=== PATIENT | female | born 1945 | race Caucasian/White ===

== ENCOUNTER 2016-10-16 11:00 | Inpatient (IN) | payer MEDICARE, MEDICAID ==
[~2016-10-16] VITALS: Ht 157.5 cm; Wt 89.0 kg
--- NOTE | 2016-10-16 11:05 | ED GI ---
General Stated Complaint: ABD PAIN Source of Information: EMS, Long-Term Records Exam Limitations: No Limitations History of Present Illness Time Seen By Provider: 11:04 Initial Comments 71-year-old female to ER from [facility] with distended abdomen noticed by the nurse today. No vomiting. No fevers. Complains of right-sided abdominal pain. She is demented. Reportedly, her last bowel movement was this morning. Timing/Duration: 1-2 Days Location: Generalized Abdomen Radiation: No Radiation Activities at Onset: None Allergies and Home Medications Allergies Uncoded Allergies: NSAIDS (Allergy, Unknown, 10/16/16) Review of Systems Constitutional: see HPI EENTM: No Symptoms Reported Respiratory: No Symptoms Reported Cardiovascular: No Symptoms Reported Gastrointestinal: See HPI Abdomen Distended Abdominal Pain Genitourinary: No Symptoms Reported Musculoskeletal: no symptoms reported Skin: no symptoms reported Psychiatric/Neurological: No Symptoms Reported Endocrine: No Symptoms Reported Hematologic/Lymphatic: No Symptoms Reported Physical Exam Vital Signs VS - Last 72 Hours, by Label 10/16/16 11:00 Temp 98.2 Pulse 67 Resp 18 B/P 117/49 Pulse Ox 97 O2 Delivery Room Air Capillary Refill : General Appearance: WD/WN no apparent distress HEENT: PERRL/EOMI normal ENT inspection Neck: non-tender full range of motion Respiratory: normal breath sounds no respiratory distress no accessory muscle use Cardiovascular: regular rate, rhythm no murmur Gastrointestinal: abnormal bowel sounds other (firm, distended bowel sounds are present but hypoactive) Extremities: normal range of motion non-tender Neurologic/Psychiatric: alert normal mood/affect oriented x 3 Skin: normal color warm/dry Progress/Results/Core Measures Results/Orders Lab Results Laboratory Tests Test 10/16/16 11:00 10/16/16 12:45 Range/Units Alanine Aminotransferase (ALT/SGPT) 41 0-55 U/L Albumin 3.1 L 3.2-4.5 G/DL Alkaline Phosphatase 131 40-136 U/L Anion Gap 9 5-14 MMOL/L Aspartate Amino Transf (AST/SGOT) 33 5-34 U/L BUN/Creatinine Ratio 17 Basophils # (Auto) 0.0 0.0-0.1 10^3/uL Basophils (%) (Auto) 0 0-10 % Blood Urea Nitrogen 23 H 7-18 MG/DL Calcium Level 9.0 8.5-10.1 MG/DL Carbon Dioxide Level 22 21-32 MMOL/L Chloride Level 101 98-107 MMOL/L Creatinine 1.34 H 0.60-1.30 MG/DL Eosinophils # (Auto) 0.2 0.0-0.3 10^3/uL Eosinophils (%) (Auto) 2 0-10 % Estimat Glomerular Filtration Rate 39 Glucose Level 240 H 70-105 MG/DL Hematocrit 36 35-52 % Hemoglobin 11.8 11.5-16.0 G/DL Lipase 19 8-78 U/L Lymphocytes # (Auto) 1.1 1.0-4.0 X 10^3 Lymphocytes (%) (Auto) 12 12-44 % Mean Corpuscular Hemoglobin 30 25-34 PG Mean Corpuscular Hemoglobin Concent 32 32-36 G/DL Mean Corpuscular Volume 94 80-99 FL Mean Platelet Volume 10.7 H 7.4-10.4 FL Monocytes # (Auto) 1.1 H 0.0-1.0 X 10^3 Monocytes (%) (Auto) 12 0-12 % Neutrophils # (Auto) 6.6 1.8-7.8 X 10^3 Neutrophils (%) (Auto) 73 42-75 % Platelet Count 205 130-400 10^3/uL Potassium Level 5.0 3.6-5.0 MMOL/L Red Blood Count 3.89 L 4.35-5.85 10^6/uL Red Cell Distribution Width 12.2 10.0-14.5 % Sodium Level 132 L 135-145 MMOL/L Total Bilirubin 0.6 0.1-1.0 MG/DL Total Protein 6.4 6.4-8.2 G/DL White Blood Count 9.0 4.3-11.0 10^3/uL Urine Bacteria FEW H /HPF Urine Bilirubin NEGATIVE NEGATIVE Urine Casts NONE /LPF Urine Clarity CLEAR Urine Color YELLOW Urine Crystals NONE /LPF Urine Culture Indicated NO Urine Glucose (UA) NEGATIVE NEGATIVE Urine Ketones NEGATIVE NEGATIVE Urine Leukocyte Esterase NEGATIVE NEGATIVE Urine Mucus NEGATIVE /LPF Urine Nitrite NEGATIVE NEGATIVE Urine Protein 2+ H NEGATIVE Urine RBC RARE /HPF Urine RBC (Auto) NEGATIVE NEGATIVE Urine Specific [place] 1.015 L 1.016-1.022 Urine Squamous Epithelial Cells 5-10 /HPF Urine Urobilinogen NORMAL NORMAL MG/DL Urine WBC RARE /HPF Urine pH 6.5 5-9 My Orders Orders-AZEVEDO,PETER J SUPERVISOR MENDING Cbc With Automated Diff (10/16/16 11:03) Comprehensive Metabolic Panel (10/16/16 11:03) Ua Culture If Indicated (10/16/16 11:03) Lipase (10/16/16 11:03) Saline Lock/Iv-Start (10/16/16 11:03) Chest 1 View, Ap/Pa Only (10/16/16 11:03) Ct Abdomen/Pelvis Wo (10/16/16 ) Us Gallbladder [id number] (10/16/16 11:47) Furosemide Injection (Lasix Injection) (10/16/16 12:00) Insulin (Regular) Human (Humulin R (Per (10/16/16 13:00) Medications Given in ED Current Medications Medications Dose Ordered Sig/Flip Route Start Time Stop Time Status Last Admin Dose Admin Furosemide 40 mg ONCE ONCE IVP 10/16/16 12:00 10/16/16 12:01 DC 10/16/16 11:56 40 MG Insulin Human Regular 6 unit ONCE ONCE SC 10/16/16 13:00 10/16/16 13:01 DC 10/16/16 13:06 6 UNIT Vital Signs/I&O Vital Sign - Last 12Hours 10/16/16 11:00 Temp 98.2 Pulse 67 Resp 18 B/P 117/49 Pulse Ox 97 O2 Delivery Room Air Diagnostic Imaging Diagonstic Imaging: Xray Plain Films/CT/US/NM/MRI: chest Comments NAME: CARRIE [facility] REC#: [id number] PT STATUS: REG ER : 1945 PHYSICIAN: NNEKA AZEVEDO APRN ADMIT DATE: 10/16/16/ER Draft Date of Exam:10/16/16 CHEST 1 VIEW, AP/PA ONLY INDICATION: Abdominal distention. COMPARISON: None available. FINDINGS: Cardiomegaly. Diffuse bilateral interstitial opacities with central vascular indistinctness. Evaluation of posterior lower lobes is limited by portable radiography. No large pleural effusion. No pneumothorax. IMPRESSION: Cardiomegaly with interstitial pulmonary edema. Dictated on workstation # [id number] Dict: 10/16/16 1139 Trans: 10/16/16 1148 [id number] Interpreted by: VIOLET ARCHER MD Electronically signed by: NAME: CARRIE [facility] REC#: [id number] PT STATUS: REG ER : 1945 PHYSICIAN: NNEKA AZEVEDO APRN ADMIT DATE: 10/16/16/ER Draft Date of Exam:10/16/16 CT ABDOMEN/PELVIS WO PROCEDURE: CT abdomen and pelvis without contrast. TECHNIQUE: Multiple contiguous axial images were obtained through the abdomen and pelvis without the use of intravenous contrast. INDICATION: Abdominal pain and distention. COMPARISON: There are no previous CT examinations available for comparison. FINDINGS: The student services vice president film reveals that there is gas in both the large and small bowel in a nonspecific fashion. The axial images show that there is a fair amount of fecal material throughout the colon. The appendix was not well visualized but there are no indirect signs of acute appendicitis. However, there is distortion of the mesenteric fat in the right midabdomen; particularly around the third portion of the duodenum, the gallbladder fossa, and to a lesser extent the right kidney. The gallbladder also seems to be distended and there may be some sludge within the gallbladder. The gallbladder wall is also indistinct and the possibility of acute cholecystitis should be considered. Ultrasound would be recommended for further study. The liver, spleen, pancreas, adrenals, kidneys, aorta, and inferior vena cava show no sign of an acute abnormality. The stomach is partially filled with fluid and consequently difficult to assess. There is no pelvic mass or free fluid collection noted. The uterus and urinary bladder are grossly unremarkable. The bone windows show no sign of a fracture or of a destructive lesion. There is degenerative disc and bony disease throughout the lumbar spine. The images through the lung bases do show that there is a generalized prominence of the interstitial densities in both lungs. The chest exam performed prior to the study did suggest that there was an element of pulmonary congestion present. There is also cardiomegaly and calcifications involving the aortic valve. IMPRESSION: 1. There is distortion of the mesenteric fat in the right midabdomen. This does suggest edema/inflammation. There could be an element of acute cholecystitis present. Ultrasound would be recommended for further study. 2. There is no acute abnormality of the abdomen or pelvis noted, otherwise. 3. There is a fair amount of fecal material throughout the colon. 4. There is cardiomegaly and mild pulmonary congestion. 5. These results were discussed with Nneka Azevedo APRN. Dictated on workstation # [id number] Dict: 10/16/16 1216 Trans: 10/16/16 1231 [id number] Interpreted by: BENJAMIN MELVIN MD Electronically signed by: Departure Communication Time/Spoke to Admitting Phy: 13:01 Communication I spoke with Dr. Dr. Zaldivar. We'll admit the patient Time/Spoke to Consulting Physi: 13:01 Communication/Consulting Spoke with Dr. Amaya. We'll admit the patient, clear liquid diet today, nothing by mouth after midnight, Zosyn. Tentative plan for cholecystectomy tomorrow Progress Notes Reportedly, patient was helped up to wheelchair prior to ultrasound but became too weak and was lowered to the ground by ultrasound staff. Small abrasion to the left anterior knee without swelling ecchymosis or deformity, otherwise no complaints Impression Impression: Primary Impression: Acute cholecystitis Disposition: 09 ADMITTED INPATIENT Condition: Stable Decision to Admit Reason: Admit from ER (General) Decision to Admit/Date: Oct 16, 2016 Time/Decision to Admit Time: 13:01 NNEKA AZEVEDO APRN Oct 16, 2016 11:05
--- OUTSIDE RECORDS SUMMARY | 2016-10-16 11:07 | XMS REPORT ---
Author Author [facility] Organization [facility] Address [address] [place], [place] [id number] Phone [phone] Care Team Providers Care Instant Powder Supervisor Name Role Phone TAVIA QUINTANILLA DO PP [phone] Summary purpose CCDA Sent to [facility] Chief Complaint and Reason for Visit No authorized Reason for Visit (Admitting Diagnosis) is available for this visit. Problem list No authorized problems tracked for continuity of care are available for this visit. Encounters No authorized problems tracked for encounter diagnoses are available for this visit. Medications No medications recorded for this patient visit Allergies, adverse reactions, alerts Allergen Category Ingredient Status Reaction Severity Onset *MRSA Drug *MRSA Active NSAIDS (Non-Steroidal Anti-Inflammatory Drug) Drug NSAIDS (Non-Steroidal Anti -Inflammatory Drug) Active Immunizations No immunizations recorded for this patient visit Relevant diagnostic tests and/or laboratory data No authorized results are available for this patient visit History of procedures Procedure Code Code Type Description Date Performed Performing Physician [id number] CPT-4 ELECTROCARDIOGRAM REPORT 10-14-2015 BRIANNA MILLS Functional status No functional or cognitive status observations are available for this visit. Vital signs No authorized vital signs are available for this visit. Social history No Social History or smoking status observations were recorded for this visit. ( Unknown if ever smoked.) Treatment Plan No treatment plan text is available for this visit. Hospital discharge instructions No discharge instruction text is available for this visit.
[2016-10-16 11:13] LABS: BASOPHILS % (AUTO) 0 % (0-10); EOSINOPHILS # (AUTO) 0.2 10^3/uL (0.0-0.3); EOSINOPHILS % (AUTO) 2 % (0-10); LYMPHOCYTES # (AUTO) 1.1 X 10^3 (1.0-4.0); LYMPHOCYTES % (AUTO) 12 % (12-44); MEAN CORPUSCULAR HEMOGLOBIN 30 PG (25-34); MEAN CORPUSCULAR HGB CONC 32 G/DL (32-36); MEAN CORPUSCULAR VOLUME 94 FL (80-99); MEAN PLATELET VOLUME 10.7 FL (7.4-10.4); MONOCYTES # (AUTO) 1.1 X 10^3 (0.0-1.0); MONOCYTES % (AUTO) 12 % (0-12); NEUTROPHILS # (AUTO) 6.6 X 10^3 (1.8-7.8); NEUTROPHILS % (AUTO) 73 % (42-75); PLATELET COUNT 205 10^3/uL (130-400); RED BLOOD COUNT 3.89 10^6/uL (4.35-5.85); RED CELL DISTRIBUTION WIDTH 12.2 % (10.0-14.5)
--- NOTE | 2016-10-16 11:48 | Diagnostic Imaging Report ---
INDICATION: Abdominal distention. COMPARISON: None available. FINDINGS: Cardiomegaly. Diffuse bilateral interstitial opacities with central vascular indistinctness. Evaluation of posterior lower lobes is limited by portable radiography. No large pleural effusion. No pneumothorax. IMPRESSION: Cardiomegaly with interstitial pulmonary edema. Dictated by: Dictated on workstation # [id number]
[2016-10-16] MEDS ORDERED: FUROSEMIDE 40 MG/4 ML INJ (LASIX) IVP ONE (12:00)
--- NOTE | 2016-10-16 12:31 | Diagnostic Imaging Report ---
PROCEDURE: CT abdomen and pelvis without contrast. TECHNIQUE: Multiple contiguous axial images were obtained through the abdomen and pelvis without the use of intravenous contrast. INDICATION: Abdominal pain and distention. COMPARISON: There are no previous CT examinations available for comparison. FINDINGS: The ob/gyn nurse film reveals that there is gas in both the large and small bowel in a nonspecific fashion. The axial images show that there is a fair amount of fecal material throughout the colon. The appendix was not well visualized but there are no indirect signs of acute appendicitis. However, there is distortion of the mesenteric fat in the right midabdomen; particularly around the third portion of the duodenum, the gallbladder fossa, and to a lesser extent the right kidney. The gallbladder also seems to be distended and there may be some sludge within the gallbladder. The gallbladder wall is also indistinct and the possibility of acute cholecystitis should be considered. Ultrasound would be recommended for further study. There also seems to be swirling of the mesentery in the right lower quadrant but there is no sign of the small bowel or colonic volvulus. The colon is somewhat difficult to evaluate however due to its tortuosity. If further evaluation is desired, then a Gastrografin enema would be recommended. The liver, spleen, pancreas, adrenals, kidneys, aorta, and inferior vena cava show no sign of an acute abnormality. The stomach is partially filled with fluid and consequently difficult to assess. There is no pelvic mass or free fluid collection noted. The uterus and urinary bladder are grossly unremarkable. The bone windows show no sign of a fracture or of a destructive lesion. There is degenerative disc and bony disease throughout the lumbar spine. The images through the lung bases do show that there is a generalized prominence of the interstitial densities in both lungs. The chest exam performed prior to the study did suggest that there was an element of pulmonary congestion present. There is also cardiomegaly and calcifications involving the aortic valve. IMPRESSION: 1. There is distortion of the mesenteric fat in the right midabdomen. This does suggest edema/inflammation. There could be an element of acute cholecystitis present. Ultrasound would be recommended for further study. 2. There is swirling of the mesentery in the right lower quadrant but there is no sign of a volvulus involving the large or small bowel. Additional considerations as above. 2. There is no acute abnormality of the abdomen or pelvis noted, otherwise. 3. There is a fair amount of fecal material throughout the colon. 4. There is cardiomegaly and mild pulmonary congestion. 5. These results were discussed with Ambrose Azevedo APRN. Dictated by: Dictated on workstation # [id number]
[2016-10-16 12:41] LABS: ALBUMIN 3.1 G/DL (3.2-4.5); BILIRUBIN,TOTAL 0.6 MG/DL (0.1-1.0); CREATININE SERUM 1.34 MG/DL (0.60-1.30); TOTAL PROTEIN 6.4 G/DL (6.4-8.2)
--- NOTE | 2016-10-16 12:50 | Diagnostic Imaging Report ---
PROCEDURE: US Gallbladder. TECHNIQUE: Multiple real-time grayscale images were obtained over the right upper quadrant in various projections. INDICATION: Abdominal pain. FINDINGS: The CT abdomen/pelvis exam performed earlier today raised a question of acute cholecystitis. On this study, there are indeed small stones and sludge within the gallbladder. Furthermore, the gallbladder wall is slightly thickened measuring 4 mm (normal 3 mm or less). There may also be a trace amount of pericholecystic fluid present. The common bile duct was not well visualized. The combination of these findings is certainly suspicious for acute cholecystitis. If further imaging is desired, then nuclear medicine hepatobiliary scan would be recommended. The liver is prominent but homogeneous. The biliary tree is not abnormally dilated. The right kidney is unremarkable. The pancreas was not well visualized. IMPRESSION: 1. There is cholelithiasis, slight thickening of the gallbladder wall, and a trace amount of pericholecystic fluid. The combination of these findings is certainly suspicious for acute cholecystitis. Recommendations as above. 2. There is no acute abnormality noted otherwise. 3. These results were discussed with Ambrose Azevedo APRN. Dictated by: Dictated on workstation # [id number]
[2016-10-16 12:52] LABS: BILIRUBIN,URINE NEGATIVE (NEGATIVE); KETONES,URINE NEGATIVE (NEGATIVE); LEUKOCYTE ESTERASE ,URINE NEGATIVE (NEGATIVE); NITRITE,URINE NEGATIVE (NEGATIVE); PH,URINE 6.5 (5-9); PROTEIN,URINE 2+ (NEGATIVE); UROBILINOGEN,URINE NORMAL (NORMAL)
[2016-10-16 13:00] LABS: WBC,URINE RARE /HPF
[2016-10-16] MEDS ORDERED: inSUlin (REGULAR) HUMAN 1 UNIT/0.01 ML (CHARGE PER UNIT) SC ONE (13:00)
--- NOTE | 2016-10-16 14:03 | Consultation ---
History of Present Illness History of Present Illness Patient Consulted On(mesfin/time) 10/16/16 13:58 Date of Admission History of Present Illness This is a 71-year-old female who came to the ER from [facility]. The nursing staff relayed to the ER staff that they noticed that the patient had a distended abdomen this morning. No nausea or vomiting. No fever. Patient is complaining of soreness to her right upper quadrant. She continues to point to her right side stating that her ribs are sore. She has history of significant dementia. The long term staff also relayed to the ER staff that the patient had a bowel movement this morning. Allergies and Home Medications Allergies Uncoded Allergies: NSAIDS (Allergy, Unknown, 10/16/16) Home Medications Acetaminophen 500 Mg Tablet 500 MG PO Q4H PRN PRN MILD PAIN (Reported) Amoxicillin/Potassium Clav 1 Each Tablet #14 1 EACH PO BID Prescribed by: NIVIA BHAGAT on 10/19/16 1046 Atorvastatin Calcium 40 Mg Tablet 40 MG PO HS (Reported) Carbamide Peroxide 15 Ml Drops 10Days 5 DROPS EACH EAR BID (Reported) 10 DAY SUPPLY START DATE 10-16-16 Docusate Sodium 100 Mg Capsule 100 MG PO BID (Reported) Duloxetine HCl 30 Mg Capsule.dr 30 MG PO DAILY (Reported) Hydrocodone/Acetaminophen 1 Each Tablet #20 1 EACH PO q4-q6hr PRN PRN PAIN Prescribed by: NIVIA BHAGAT on 10/19/16 1046 Insulin Aspart 300 Units/3 Ml Solution 20 UNITS SQ 0730 (Reported) Insulin Aspart 300 Units/3 Ml Solution 25 UNITS SQ 1200,1700 (Reported) Insulin Degludec 100 Unit/1 Ml Insuln.pen 82 UNIT SQ HS (Reported) Lactulose 20 Gm/30 Ml Solution 15 ML PO QID (Reported) Loperamide HCl 2 Mg Tablet 2 MG PO UD PRN PRN LOOSE STOOLS (Reported) MAY GIVE 2 TABS AFTER 1ST LOOSE STOOL, THEN 1 TAB AFTER EACH LOOSE STOOL - NOT TO EXCEED 6 TABS IN 24 HOURS Lorazepam 0.5 Mg Tablet 0.5 MG PO BID (Reported) Magnesium Hydroxide 400 Mg/5 Ml Oral.susp 30 ML PO DAILY PRN PRN CONSTIPATION ( Reported) Metoprolol Succinate 25 Mg Tab.er.24h #30 25 MG PO DAILY Prescribed by: MIKI SPRAGUE on 10/22/16 1304 Mirtazapine 30 Mg Tablet 30 MG PO HS (Reported) Nystatin 1 Each Powder.ea. TOP BID (Reported) APPLY TO GROIN Pantoprazole Sodium 40 Mg Tablet.dr 40 MG PO DAILY (Reported) Perphenazine 4 Mg Tablet 10 MG PO 0800 (Reported) Perphenazine 8 Mg Tablet 24 MG PO HS (Reported) Polyethylene Glycol 3350 17 Gm Powd.pack 17 GM PO BID (Reported) Risperidone 2 Mg Tablet 2 MG PO BID (Reported) Sitagliptin Phosphate 50 Mg Tablet 50 MG PO DAILY (Reported) Trihexyphenidyl HCl 2 Mg Tablet 2 MG PO TID (Reported) Past Wivqjpi-Iaqntm-Gpcfku Hx Patient Social History Alcohol Use: Denies Use Recreational Drug Use: No Smoking Status: Unknown if Ever Smoked Recent Foreign Travel: No Contact w/Someone Who Travel: No Recent Infectious Disease Expo: No Recent Hopitalizations: No Physical Abuse Screen: No Sexual Abuse: No Seasonal Allergies Seasonal Allergies: No Surgeries HX Surgeries: No (UNABLE TO OBTAIN HX FROM PT) Cardiovascular Hx Cardiac Disorders: No Neurological Hx Neurological Disorders: Yes Neurological Disorders: Dementia Genitourinary Hx Genitourinary Disorders: No Gastrointestinal Hx Gastrointestinal Disorders: Yes Gastrointestinal Disorders: Gastroesophageal Reflux, Chronic Constipation Musculoskeletal Hx Musculoskeletal Disorders: No Endocrine Hx Endocrine Disorders: Yes Endocrine Disorders: Diabetes, Non-Insulin dep HEENT HX ENT Disorders: No Cancer Hx Cancer: No Psychosocial Hx Psychiatric Problems: Yes Behavioral Health Disorders: Anxiety, Depression Family Medical History Significant Family History: No Pertinent Family Hx Review of Systems-General Constitutional: weakness EENTM: no symptoms reported Respiratory: no symptoms reported Cardiovascular: no symptoms reported Gastrointestinal: abdominal pain (RUQ) other (abdomen is significantly distended) Genitourinary: no symptoms reported : No Musculoskeletal: other (patient is complaining of pain to her left shoulder) Skin: no symptoms reported Psychiatric/Neurological: Other (history of dementia) Physical Exam-General Problems Physical Exam Vital Signs Vital Sign - Last 12Hours 10/16/16 11:00 Temp 98.2 Pulse 67 Resp 18 B/P 117/49 Pulse Ox 97 O2 Delivery Room Air Capillary Refill : Less Than 3 Seconds General Appearance: no apparent distress HEENT: normal ENT inspection Neck: non-tender full range of motion Respiratory: chest non-tender no respiratory distress no accessory muscle use Cardiovascular: regular rate, rhythm Gastrointestinal: distended (abdomen is significantly distended. Abdomen is also firm. Patient complaining of soreness in the right upper quadrant. Reports her ribs hurts.) Extremities: no calf tenderness Neurologic/Psychiatric: other (history of dementia) Skin: normal color warm/dry Data Review Labs Laboratory Tests 10/16/16 11:00: Alanine Aminotransferase (ALT/SGPT) 41, Albumin 3.1L, Alkaline Phosphatase 131, Anion Gap 9, Aspartate Amino Transf (AST/SGOT) 33, BUN/Creatinine Ratio 17, Basophils # (Auto) 0.0, Basophils (%) (Auto) 0, Blood Urea Nitrogen 23H, Calcium Level 9.0, Carbon Dioxide Level 22, Chloride Level 101, Creatinine 1.34H , Eosinophils # (Auto) 0.2, Eosinophils (%) (Auto) 2, Estimat Glomerular Filtration Rate 39, Glucose Level 240H, Hematocrit 36, Hemoglobin 11.8, Lipase 19, Lymphocytes # (Auto) 1.1, Lymphocytes (%) (Auto) 12, Mean Corpuscular Hemoglobin 30, Mean Corpuscular Hemoglobin Concent 32, Mean Corpuscular Volume 94, Mean Platelet Volume 10.7H, Monocytes # (Auto) 1.1H, Monocytes (%) (Auto) 12 , Neutrophils # (Auto) 6.6, Neutrophils (%) (Auto) 73, Platelet Count 205, Potassium Level 5.0, Red Blood Count 3.89L, Red Cell Distribution Width 12.2, Sodium Level 132L, Total Bilirubin 0.6, Total Protein 6.4, White Blood Count 9.0 10/16/16 12:45: Urine Bacteria FEWH, Urine Bilirubin NEGATIVE, Urine Casts NONE, Urine Clarity CLEAR, Urine Color YELLOW, Urine Crystals NONE, Urine Culture Indicated NO, Urine Glucose (UA) NEGATIVE, Urine Ketones NEGATIVE, Urine Leukocyte Esterase NEGATIVE, Urine Mucus NEGATIVE, Urine Nitrite NEGATIVE, Urine Protein 2+H, Urine RBC RARE, Urine RBC (Auto) NEGATIVE, Urine Specific [place] 1.015L, Urine Squamous Epithelial Cells 5-10, Urine Urobilinogen NORMAL, Urine WBC RARE, Urine pH 6.5 Radiology RICHI: CARRIE ALEXANDER REC#: [id number] PT STATUS: REG ER : 1945 PHYSICIAN: NNEKA AZEVEDO APRN ADMIT DATE: 10/16/16/ER Draft Date of Exam:10/16/16 CHEST 1 VIEW, AP/PA ONLY INDICATION: Abdominal distention. COMPARISON: None available. FINDINGS: Cardiomegaly. Diffuse bilateral interstitial opacities with central vascular indistinctness. Evaluation of posterior lower lobes is limited by portable radiography. No large pleural effusion. No pneumothorax. IMPRESSION: Cardiomegaly with interstitial pulmonary edema. RICHI: CARRIE ALEXANDER [facility] REC#: [id number] PT STATUS: REG ER : 1945 PHYSICIAN: NNEKA AZEVEDO STRAPPER ADMIT DATE: 10/16/16/ER Draft Date of Exam:10/16/16 CT ABDOMEN/PELVIS WO PROCEDURE: CT abdomen and pelvis without contrast. TECHNIQUE: Multiple contiguous axial images were obtained through the abdomen and pelvis without the use of intravenous contrast. INDICATION: Abdominal pain and distention. COMPARISON: There are no previous CT examinations available for comparison. FINDINGS: The architecture consultant film reveals that there is gas in both the large and small bowel in a nonspecific fashion. The axial images show that there is a fair amount of fecal material throughout the colon. The appendix was not well visualized but there are no indirect signs of acute appendicitis. However, there is distortion of the mesenteric fat in the right midabdomen; particularly around the third portion of the duodenum, the gallbladder fossa, and to a lesser extent the right kidney. The gallbladder also seems to be distended and there may be some sludge within the gallbladder. The gallbladder wall is also indistinct and the possibility of acute cholecystitis should be considered. Ultrasound would be recommended for further study. The liver, spleen, pancreas, adrenals, kidneys, aorta, and inferior vena cava show no sign of an acute abnormality. The stomach is partially filled with fluid and consequently difficult to assess. There is no pelvic mass or free fluid collection noted. The uterus and urinary bladder are grossly unremarkable. The bone windows show no sign of a fracture or of a destructive lesion. There is degenerative disc and bony disease throughout the lumbar spine. The images through the lung bases do show that there is a generalized prominence of the interstitial densities in both lungs. The chest exam performed prior to the study did suggest that there was an element of pulmonary congestion present. There is also cardiomegaly and calcifications involving the aortic valve. IMPRESSION: 1. There is distortion of the mesenteric fat in the right midabdomen. This does suggest edema/inflammation. There could be an element of acute cholecystitis present. Ultrasound would be recommended for further study. 2. There is no acute abnormality of the abdomen or pelvis noted, otherwise. 3. There is a fair amount of fecal material throughout the colon. 4. There is cardiomegaly and mild pulmonary congestion. 5. These results were discussed with Nneka Azevedo APRN. Procedures NAME: CARRIE ALEXANDER [facility] REC#: [id number] PT STATUS: REG ER : 1945 PHYSICIAN: NNEKA AZEVEDO APRN ADMIT DATE: 10/16/16/ER Draft Date of Exam:10/16/16 US GALLBLADDER [id number] PROCEDURE: US Gallbladder. TECHNIQUE: Multiple real-time grayscale images were obtained over the right upper quadrant in various projections. INDICATION: Abdominal pain. FINDINGS: The CT abdomen/pelvis exam performed earlier today raised a question of acute cholecystitis. On this study, there are indeed small stones and sludge within the gallbladder. Furthermore, the gallbladder wall is slightly thickened measuring 4 mm (normal 3 mm or less). There may also be a trace amount of pericholecystic fluid present. The common bile duct was not well visualized. The combination of these findings is certainly suspicious for acute cholecystitis. If further imaging is desired, then nuclear medicine hepatobiliary scan would be recommended. The liver is prominent but homogeneous. The biliary tree is not abnormally dilated. The right kidney is unremarkable. The pancreas was not well visualized. IMPRESSION: 1. There is cholelithiasis, slight thickening of the gallbladder wall, and a trace amount of pericholecystic fluid. The combination of these findings is certainly suspicious for . Recommendations as above. 2. There is no acute abnormality of the abdomen or pelvis noted, otherwise. 3. These results were discussed with Nneka Azevedo APRN. Assessment/Plan Assessment/Plan Assessment/Plan acute cholecystitis Cholelithiasis Distention of the abdomen History of chronic constipation. WBC is normal at this time. BUN and creatinine are elevated.At this time we'll put patient on clear liquids till midnight. After midnight patient to be nothing by mouth for possible laparoscopic cholelithiasis with all other indicated procedures. Lee- Patient 71 year old demented female who began having right upper quadrant abdominal pain and distention today. Patient reported to have some distention due to constipation on regular basis. Patient does demonstrate pain located in the right upper quadrant. She had a ct scan with changes suggestive of acute cholecystitis and some questionable changes of the sigmoid colon in the right lower quadrant. She had u/s done demonstrating findings suggestive of acute cholecystitis. There was a slight question of colonic process with narrowing of sigmoid colon and slight swirl, therefore a BE was performed demonstrating no obstruction or volvulus. General laying in bed no acute distress head ncat heart regular lungs nonlabored. abdomen distended with tenderness right upper quadrant ext nontender rectal no palpable mass alert assessment as above plan clear liquids today and npo after midnight laparoscopic cholecystectomy ioc possible open all other indicated procedures tomorrow will obtain consent, no family at bedside NIVIA SOLORZANO APRN Oct 16, 2016 14:03 AURORA LEE DO Oct 16, 2016 18:56
[2016-10-16 14:05] VITALS: BP 151/86
[2016-10-16] MEDS ORDERED: PIPERACILLIN SODIUM/TAZOBACTAM 4.5 GM in NS (BAXTER MINI) 100 ML IV NR (14:30)
[2016-10-16] MEDS: NS IV 1000 ML 1,000 ML IV SCH (15:01)
[2016-10-16] MEDS ORDERED: DIATRIZOATE MEGLUM/SODIUM 37% 120 ML (GASTROGRAFIN) RC ONE (15:30)
[2016-10-16] MEDS ORDERED: INSU100I14 SQ ×2 (15:44)
[2016-10-16 16:00] VITALS: BP 130/72
[2016-10-16] MEDS: inSUlin (REGULAR) HUMAN 1 UNIT/0.01 ML (CHARGE PER UNIT) SC SCH ×2 (16:00→20:54)
[2016-10-16] MEDS ORDERED: DULO30CA3 PO (16:02)
[2016-10-16] MEDS ORDERED: PERP4TAB10 PO (16:02)
[2016-10-16] MEDS ORDERED: LACT20SO2 PO (16:02)
[2016-10-16] MEDS ORDERED: LORA-404 PO (16:02)
[2016-10-16] MEDS ORDERED: PANT40TA2 PO (16:02)
[2016-10-16] MEDS ORDERED: ATOR40TA PO (16:02)
[2016-10-16] MEDS ORDERED: CARB15DR87 EACH EAR (16:02)
[2016-10-16] MEDS ORDERED: INSU100I32 SQ (16:02)
[2016-10-16] MEDS ORDERED: SITA50TA PO (16:02)
[2016-10-16] MEDS ORDERED: PERP8TAB6 PO (16:02)
[2016-10-16] MEDS ORDERED: MIRT30TA PO (16:02)
[2016-10-16] MEDS ORDERED: DOCU-143 PO (16:02)
[2016-10-16] MEDS ORDERED: ACET-2267 PO (16:02)
[2016-10-16] MEDS ORDERED: MAGN400O7 PO (16:02)
[2016-10-16] MEDS ORDERED: RISP2TAB83 PO (16:02)
[2016-10-16] MEDS ORDERED: POLY17PO6 PO (16:02)
[2016-10-16] MEDS ORDERED: NYST1POW22 TOP (16:02)
[2016-10-16] MEDS ORDERED: TRIH2TAB2 PO (16:02)
[2016-10-16] MEDS ORDERED: LOPE2TAB34 PO (16:02)
--- NOTE | 2016-10-16 18:34 | Diagnostic Imaging Report ---
Gastrografin enema. INDICATION: Abdominal pain. CT abdomen/pelvis exam performed earlier today noted some swirling of the mesentery in the right lower quadrant but failed to show any sign of obstruction or volvulus. Gastrografin was introduced in the colon per rectum. There was delay in the passage of Gastrografin through the colon as there is a considerable amount of residual fecal material throughout the colon. Gradually, the contrast was advanced into the region of the cecum. There was little, if any, reflux into the terminal ileum, however. There is no obstructive mass or constricting lesion identified. There is no sign of a volvulus either. IMPRESSION: 1. There is no evidence for a mass or for constricting lesion and there is no sign of volvulus. 2. There is a considerable amount of fecal material throughout the colon. These results were discussed with Dr. Ashkan mAaya. Dictated by: Dictated on workstation # [id number]
--- NOTE | 2016-10-16 18:55 | History & Physicial ---
History of Present Illness History of Present Illness Reason for visit/HPI patient is a resident of [facility]. Patient abdomen is distended today. Patient complaining of pain in the right upper quadrant by the ribs. X-ray shows acute cholecystitis . Patient has dementia. Patient doesn't know the senior loan officer or the year Date of Admission Oct 16, 2016 at 13:08 I consulted on this patient on 10/16/16 18:52 Attending Physician Rodrick Woods DO Admitting Physician Rodrick Woods DO Consult Allergies and Home Medications Allergies Uncoded Allergies: NSAIDS (Allergy, Unknown, 10/16/16) Home Medications Acetaminophen 500 Mg Tablet 500 MG PO Q4H PRN PRN MILD PAIN (Reported) Atorvastatin Calcium 40 Mg Tablet 40 MG PO HS (Reported) Carbamide Peroxide 15 Ml Drops 10Days 5 DROPS EACH EAR BID (Reported) 10 DAY SUPPLY START DATE 10-16-16 Docusate Sodium 100 Mg Capsule 100 MG PO BID (Reported) Duloxetine HCl 30 Mg Capsule.dr 30 MG PO DAILY (Reported) Insulin Aspart 300 Units/3 Ml Solution 20 UNITS SQ 0730 (Reported) Insulin Aspart 300 Units/3 Ml Solution 25 UNITS SQ 1200,1700 (Reported) Insulin Degludec 100 Unit/1 Ml Insuln.pen 82 UNIT SQ HS (Reported) Lactulose 20 Gm/30 Ml Solution 15 ML PO QID (Reported) Loperamide HCl 2 Mg Tablet 2 MG PO UD PRN PRN LOOSE STOOLS (Reported) MAY GIVE 2 TABS AFTER 1ST LOOSE STOOL, THEN 1 TAB AFTER EACH LOOSE STOOL - NOT TO EXCEED 6 TABS IN 24 HOURS Lorazepam 0.5 Mg Tablet 0.5 MG PO BID (Reported) Magnesium Hydroxide 400 Mg/5 Ml Oral.susp 30 ML PO DAILY PRN PRN CONSTIPATION ( Reported) Mirtazapine 30 Mg Tablet 30 MG PO HS (Reported) Nystatin 1 Each Powder.ea. TOP BID (Reported) APPLY TO GROIN Pantoprazole Sodium 40 Mg Tablet.dr 40 MG PO DAILY (Reported) Perphenazine 4 Mg Tablet 10 MG PO 0800 (Reported) Perphenazine 8 Mg Tablet 24 MG PO HS (Reported) Polyethylene Glycol 3350 17 Gm Powd.pack 17 GM PO BID (Reported) Risperidone 2 Mg Tablet 2 MG PO BID (Reported) Sitagliptin Phosphate 50 Mg Tablet 50 MG PO DAILY (Reported) Trihexyphenidyl HCl 2 Mg Tablet 2 MG PO TID (Reported) Past Ituzewl-Sdzhqr-Iegujn Hx Patient Social History Employed/Student: unemployed Alcohol Use: Denies Use Recreational Drug Use: No Smoking Status: Unknown if Ever Smoked Physical Abuse Screen: No Sexual Abuse: No Recent Foreign Travel: No Contact w/other who traveled: No Recent Hopitalizations: No Recent Infectious Disease Expo: No Seasonal Allergies Seasonal Allergies: No Surgeries HX Surgeries: No (UNABLE TO OBTAIN HX FROM PT) Cardiovascular Hx Cardiovascular Disorders: No Neurological Hx Neurological Disorders: Yes Neurological Disorders: Dementia Genitourinary Hx Genitourinary Disorders: No Gastrointestinal Hx Gastrointestinal Disorders: Yes Gastrointestinal Disorders: Gastroesophageal Reflux, Chronic Constipation Musculoskeletal Hx Musculoskeletal Disorders: No Endocrine Hx Endocrine Disorders: Yes Endocrine Disorders: Diabetes, Non-Insulin dep HEENT HX ENT Disorders: No Cancer Hx Cancer: No Psychosocial Hx Psychiatric Problems: Yes Behavioral Health Disorders: Anxiety, Depression Family Medical History Significant Family History: No Pertinent Family Hx Constitutional: malaise weakness EENTM: no symptoms reported Respiratory: no symptoms reported Cardiovascular: no symptoms reported Gastrointestinal: RUQ Genitourinary: no symptoms reported Physical Exam Vital Signs Vital Sign - Last 12Hours 10/16/16 11:00 Temp 98.2 Pulse 67 Resp 18 B/P 117/49 Pulse Ox 97 O2 Delivery Room Air Capillary Refill : Less Than 3 Seconds General Appearance: No Apparent Distress WD/WN Eyes: Bilateral Eye Normal Inspection HEENT: Normal ENT Inspection Neck: Full Range of Motion Normal Inspection Respiratory: Chest Non Tender No Accessory Muscle Use No Respiratory Distress Cardiovascular: Regular Rate, Rhythm No Murmur Gastrointestinal: Tenderness Other (tenderness right upper quadrant) Assessment/Plan Assessment and Plan acute cholecystitis. Diabetes. Hyperlipidemia. Dementia. Congestive heart failure RODRICK WOODS DO Oct 16, 2016 18:55
[2016-10-16] MEDS ORDERED: PIPERACILLIN/TAZO 4.5 GM VIAL (ZOSYN) IV ONE (20:10)
[2016-10-16] MEDS ORDERED: NORMAL SALINE (BAXTER MINI) 100 ML IV ONE (20:10)
[2016-10-16 20:29] VITALS: BP 124/73
[2016-10-16] MEDS: PIPERACILLIN SODIUM/TAZOBACTAM 4.5 GM in NORMAL SALINE (BAXTER MINI) 100 ML IV SCH (20:53)
[2016-10-17] VITALS: BP 119/71
[2016-10-17] MEDS: NS IV 1000 ML 1,000 ML IV SCH ×3 (00:30→20:30)
[2016-10-17] MEDS ORDERED: PIPERACILLIN/TAZO 4.5 GM VIAL (ZOSYN) IV ONE ×2 (03:44→20:15)
[2016-10-17] MEDS ORDERED: NORMAL SALINE (BAXTER MINI) 100 ML IV ONE ×2 (03:44→20:15)
[2016-10-17 04:00] VITALS: BP 108/52
[2016-10-17] MEDS: PIPERACILLIN SODIUM/TAZOBACTAM 4.5 GM in NORMAL SALINE (BAXTER MINI) 100 ML IV SCH ×3 (04:55→13:00)
[2016-10-17] MEDS: inSUlin (REGULAR) HUMAN 1 UNIT/0.01 ML (CHARGE PER UNIT) SC SCH ×4 (06:00→21:00)
[2016-10-17 06:32] LABS: BASOPHILS % (AUTO) 0 % (0-10); EOSINOPHILS # (AUTO) 0.1 10^3/uL (0.0-0.3); EOSINOPHILS % (AUTO) 2 % (0-10); LYMPHOCYTES # (AUTO) 0.9 X 10^3 (1.0-4.0); LYMPHOCYTES % (AUTO) 11 % (12-44); MEAN CORPUSCULAR HEMOGLOBIN 31 PG (25-34); MEAN CORPUSCULAR HGB CONC 33 G/DL (32-36); MEAN CORPUSCULAR VOLUME 94 FL (80-99); MEAN PLATELET VOLUME 10.4 FL (7.4-10.4); MONOCYTES % (AUTO) 12 % (0-12); NEUTROPHILS # (AUTO) 6.6 X 10^3 (1.8-7.8); NEUTROPHILS % (AUTO) 76 % (42-75); PLATELET COUNT 223 10^3/uL (130-400); RED BLOOD COUNT 3.52 10^6/uL (4.35-5.85); RED CELL DISTRIBUTION WIDTH 12.3 % (10.0-14.5); WHITE BLOOD COUNT 8.7 10^3/uL (4.3-11.0)
[2016-10-17 07:08] LABS: ALBUMIN 2.9 G/DL (3.2-4.5); BILIRUBIN,TOTAL 0.5 MG/DL (0.1-1.0); CALCIUM 8.5 MG/DL (8.5-10.1); CREATININE SERUM 1.36 MG/DL (0.60-1.30); POTASSIUM 3.9 MMOL/L (3.6-5.0); TOTAL PROTEIN 5.8 G/DL (6.4-8.2)
--- NOTE | 2016-10-17 07:51 | Progress Note (SOAP) ---
Subjective Subjective/Events-last exam patient having discomfort in the right lower ribs. Patient abdomen is enlarged but soft. Patient has renal insufficiency with a GFR 38. Acute cholecystitis. Dementia Objective Exam Vital Signs Date Time Temp Pulse Resp B/P Pulse Ox O2 Delivery O2 Flow Rate FiO2 10/17/16 04:00 98.6 69 20 108/52 93 Room Air 10/17/16 00:00 99.6 86 20 119/71 95 Room Air 10/16/16 20:35 92 Room Air 10/16/16 20:29 98.9 75 20 124/73 92 Room Air 10/16/16 19:18 Room Air 10/16/16 16:00 98.8 80 16 130/72 95 Room Air 10/16/16 14:05 97.7 81 18 151/86 96 Room Air 10/16/16 13:54 98.2 65 16 97 Room Air 10/16/16 11:00 98.2 67 18 117/49 97 Room Air I & O 10/17/16 07:00 Intake Total 1970 ml Output Total 750 ml Balance 1220 ml Capillary Refill : Less Than 3 Seconds General Appearance: No Apparent Distress WD/WN HEENT: Normal ENT Inspection Neck: Normal Inspection Respiratory: Chest Non Tender Lungs Clear Normal Breath Sounds No Accessory Muscle Use No Respiratory Distress Cardiovascular: Regular Rate, Rhythm Gastrointestinal: distended other (right upper quadrant discomfort) Results Lab Laboratory Tests 10/16/16 11:00 10/17/16 05:57 Laboratory Tests 10/16/16 11:00: Alanine Aminotransferase (ALT/SGPT) 41, Albumin 3.1L, Alkaline Phosphatase 131, Anion Gap 9, Aspartate Amino Transf (AST/SGOT) 33, BUN/Creatinine Ratio 17, Basophils # (Auto) 0.0, Basophils (%) (Auto) 0, Blood Urea Nitrogen 23H, Calcium Level 9.0, Carbon Dioxide Level 22, Chloride Level 101, Creatinine 1.34H , Eosinophils # (Auto) 0.2, Eosinophils (%) (Auto) 2, Estimat Glomerular Filtration Rate 39, Glucose Level 240H, Hematocrit 36, Hemoglobin 11.8, Lipase 19, Lymphocytes # (Auto) 1.1, Lymphocytes (%) (Auto) 12, Mean Corpuscular Hemoglobin 30, Mean Corpuscular Hemoglobin Concent 32, Mean Corpuscular Volume 94, Mean Platelet Volume 10.7H, Monocytes # (Auto) 1.1H, Monocytes (%) (Auto) 12 , Neutrophils # (Auto) 6.6, Neutrophils (%) (Auto) 73, Platelet Count 205, Potassium Level 5.0, Red Blood Count 3.89L, Red Cell Distribution Width 12.2, Sodium Level 132L, Total Bilirubin 0.6, Total Protein 6.4, White Blood Count 9.0 10/16/16 12:45: Urine Bacteria FEWH, Urine Bilirubin NEGATIVE, Urine Casts NONE, Urine Clarity CLEAR, Urine Color YELLOW, Urine Crystals NONE, Urine Culture Indicated NO, Urine Glucose (UA) NEGATIVE, Urine Ketones NEGATIVE, Urine Leukocyte Esterase NEGATIVE, Urine Mucus NEGATIVE, Urine Nitrite NEGATIVE, Urine Protein 2+H, Urine RBC RARE, Urine RBC (Auto) NEGATIVE, Urine Specific [place] 1.015L, Urine Squamous Epithelial Cells 5-10, Urine Urobilinogen NORMAL, Urine WBC RARE, Urine pH 6.5 10/16/16 16:31: Glucometer 135H 10/16/16 19:05: B-Type Natriuretic Peptide 60.4 10/16/16 20:42: Glucometer 103 10/17/16 03:07: Glucometer 71 10/17/16 05:56: Glucometer 82 10/17/16 05:57: Alanine Aminotransferase (ALT/SGPT) 37, Albumin 2.9L, Alkaline Phosphatase 129, Anion Gap 11, Aspartate Amino Transf (AST/SGOT) 30, B-Type Natriuretic Peptide 48.3, BUN/Creatinine Ratio 18, Basophils # (Auto) 0.0, Basophils (%) (Auto) 0, Blood Urea Nitrogen 24H, Calcium Level 8.5, Carbon Dioxide Level 24, Chloride Level 104, Creatinine 1.36H, Eosinophils # (Auto) 0.1, Eosinophils (%) (Auto) 2 , Estimat Glomerular Filtration Rate 38, Glucose Level 74, Hematocrit 33L, Hemoglobin 10.8L, Lymphocytes # (Auto) 0.9L, Lymphocytes (%) (Auto) 11L, Mean Corpuscular Hemoglobin 31, Mean Corpuscular Hemoglobin Concent 33, Mean Corpuscular Volume 94, Mean Platelet Volume 10.4, Monocytes # (Auto) 1.0, Monocytes (%) (Auto) 12, Neutrophils # (Auto) 6.6, Neutrophils (%) (Auto) 76H, Platelet Count 223, Potassium Level 3.9, Red Blood Count 3.52L, Red Cell Distribution Width 12.3, Sodium Level 139, Total Bilirubin 0.5, Total Protein 5.8L, White Blood Count 8.7 Assessment/Plan Assessment/Plan Assess & Plan/Chief Complaint acute cholecystitis. Abdomen distended. Dementia Diagnosis/Problems: Clinical Quality Measures DVT/VTE Risk/Contraindication: Risk Factor Score Per Nursin RFS Level Per Nursing on Admit: 4+=Very High Contraindications-Pharm: Other *list below* JOSE WOODS DO Oct 17, 2016 07:51
[2016-10-17 08:00] VITALS: BP 131/63
--- NOTE | 2016-10-17 09:02 | Consultation-Cardiology ---
HPI-Cardiology Cardiology Consultation: Date of Consultation 10/17/16 Date of Admission 10-16-16 Attending Physician Rodrick Zaldivar DO Admitting Physician Rodrick Zaldivar DO Consulting Physician Kenny Marin MD HPI: Chief Complaint: Surgery clearance Pulmonary Edema Ms. Phan is a 71 year old female who resides at [facility]. She is a poor historian. Information has been obtained from her and review of medical records. She was brought in by EMS with increased abdominal distention. She states she has been having nausea and vomiting. She does not report any CP or dyspnea. She reports she falls frequently d/t chronic weakness and poor balance. No c/o fever or chills. She is reporting right lower rib pain. She reports a non-syncopal fall from a stool. Review of Systems-Cardiology Review of Systems Constitutional: As described under HPI Eyes: No blurred vision, No drainage, No pain, No vision change Ears/Nose/Throat: No ear discharge, No ear pain, No nasal drainage, No ulcerations Respiratory: As described under HPI Cardiovascular: As described under HPI Gastrointestinal: abdomen distendedNo constipation, diarrhea nausea vomitingNo stool coloration changes Genitourinary: No dysuria, No discharge, No frequency, No hematuria, No urgency : No Skin: No rash, No skin related problems, No ulcerations Psychiatric/Neurological: otherNo anxiety, No depression, No focal weakness, No seizure, No syncope Hematologic: No bleeding abnormalities [id number] Hx Patient Social History Employed/Student: unemployed Alcohol Use: Denies Use Recreational Drug Use: No Smoking Status: Unknown if Ever Smoked Recent Foreign Travel: No Recent Infectious Disease Expo: No Hospitalization with Isolation: Denies Physical Abuse Screen: No Sexual Abuse: No Immunizations Up To Date Date of Pneumonia Vaccine: Aug 21, 2016 Date of Influenza Vaccine: Aug 21, 2016 Past Medical History PMH As described under Assessment. Family Medical History Family Medical History: She reports her father and sister have diabetes. She is uncertain regarding any other h/o. Allergies and Home Medications Allergies Uncoded Allergies: NSAIDS (Allergy, Unknown, 10/16/16) Home Medications Acetaminophen 500 Mg Tablet 500 MG PO Q4H PRN PRN MILD PAIN (Reported) Atorvastatin Calcium 40 Mg Tablet 40 MG PO HS (Reported) Carbamide Peroxide 15 Ml Drops 10Days 5 DROPS EACH EAR BID (Reported) 10 DAY SUPPLY START DATE 10-16-16 Docusate Sodium 100 Mg Capsule 100 MG PO BID (Reported) Duloxetine HCl 30 Mg Capsule.dr 30 MG PO DAILY (Reported) Insulin Aspart 300 Units/3 Ml Solution 20 UNITS SQ 0730 (Reported) Insulin Aspart 300 Units/3 Ml Solution 25 UNITS SQ 1200,1700 (Reported) Insulin Degludec 100 Unit/1 Ml Insuln.pen 82 UNIT SQ HS (Reported) Lactulose 20 Gm/30 Ml Solution 15 ML PO QID (Reported) Loperamide HCl 2 Mg Tablet 2 MG PO UD PRN PRN LOOSE STOOLS (Reported) MAY GIVE 2 TABS AFTER 1ST LOOSE STOOL, THEN 1 TAB AFTER EACH LOOSE STOOL - NOT TO EXCEED 6 TABS IN 24 HOURS Lorazepam 0.5 Mg Tablet 0.5 MG PO BID (Reported) Magnesium Hydroxide 400 Mg/5 Ml Oral.susp 30 ML PO DAILY PRN PRN CONSTIPATION ( Reported) Mirtazapine 30 Mg Tablet 30 MG PO HS (Reported) Nystatin 1 Each Powder.ea. TOP BID (Reported) APPLY TO GROIN Pantoprazole Sodium 40 Mg Tablet.dr 40 MG PO DAILY (Reported) Perphenazine 4 Mg Tablet 10 MG PO 0800 (Reported) Perphenazine 8 Mg Tablet 24 MG PO HS (Reported) Polyethylene Glycol 3350 17 Gm Powd.pack 17 GM PO BID (Reported) Risperidone 2 Mg Tablet 2 MG PO BID (Reported) Sitagliptin Phosphate 50 Mg Tablet 50 MG PO DAILY (Reported) Trihexyphenidyl HCl 2 Mg Tablet 2 MG PO TID (Reported) Physical Exam-Cardiology Physical Exam Vital Signs/I&O Vital Sign - Last 12Hours 10/17/16 10/17/16 10/17/16 04:00 08:00 12:00 Temp 98.6 99.3 100.0 Pulse 69 68 71 Resp 20 20 20 B/P 108/52 131/63 132/75 Pulse Ox 93 96 92 O2 Delivery Room Air Room Air Room Air Intake and Output 10/17/16 00:00 Intake Total 650 ml Balance 650 ml Capillary Refill : Less Than 3 Seconds Constitutional: appears stated ageNo apparent distress, well-developed well- nourished HEENT: PERRLNo discharge, hearing is well preserved oral hygience is goodNo ulceration, No xanthelasmas are seen Neck: No carotid bruit, carotid pulses are 2 + bilaterally Respiratory: No accessory muscle use, No respiratory distress, chest expansion is symmetric chest is bilaterally symmetric other (fair air entry) Cardiovascular: regular rate-rhythmNo JVD, S1 and S2 systolic murmur Gastrointestinal: tender distended audible bowel sounds (high pitched)No spleenomegaly Extremities: No clubbing, No cyanosis, No significant edema Neurologic/Psychiatric: alert oriented x 3 grossly intact Skin: No rash, No ulcerations Data Review Labs Laboratory Tests 10/16/16 12:45: Urine Bacteria FEWH, Urine Bilirubin NEGATIVE, Urine Casts NONE, Urine Clarity CLEAR, Urine Color YELLOW, Urine Crystals NONE, Urine Culture Indicated NO, Urine Glucose (UA) NEGATIVE, Urine Ketones NEGATIVE, Urine Leukocyte Esterase NEGATIVE, Urine Mucus NEGATIVE, Urine Nitrite NEGATIVE, Urine Protein 2+H, Urine RBC RARE, Urine RBC (Auto) NEGATIVE, Urine Specific [place] 1.015L, Urine Squamous Epithelial Cells 5-10, Urine Urobilinogen NORMAL, Urine WBC RARE, Urine pH 6.5 10/16/16 16:31: Glucometer 135H 10/16/16 19:05: B-Type Natriuretic Peptide 60.4 10/16/16 20:42: Glucometer 103 10/17/16 03:07: Glucometer 71 10/17/16 05:56: Glucometer 82 10/17/16 05:57: Alanine Aminotransferase (ALT/SGPT) 37, Albumin 2.9L, Alkaline Phosphatase 129, Anion Gap 11, Aspartate Amino Transf (AST/SGOT) 30, B-Type Natriuretic Peptide 48.3, BUN/Creatinine Ratio 18, Basophils # (Auto) 0.0, Basophils (%) (Auto) 0, Blood Urea Nitrogen 24H, Calcium Level 8.5, Carbon Dioxide Level 24, Chloride Level 104, Creatinine 1.36H, Eosinophils # (Auto) 0.1, Eosinophils (%) (Auto) 2 , Estimat Glomerular Filtration Rate 38, Glucose Level 74, Hematocrit 33L, Hemoglobin 10.8L, Lymphocytes # (Auto) 0.9L, Lymphocytes (%) (Auto) 11L, Mean Corpuscular Hemoglobin 31, Mean Corpuscular Hemoglobin Concent 33, Mean Corpuscular Volume 94, Mean Platelet Volume 10.4, Monocytes # (Auto) 1.0, Monocytes (%) (Auto) 12, Neutrophils # (Auto) 6.6, Neutrophils (%) (Auto) 76H, Platelet Count 223, Potassium Level 3.9, Red Blood Count 3.52L, Red Cell Distribution Width 12.3, Sodium Level 139, Total Bilirubin 0.5, Total Protein 5.8L, White Blood Count 8.7 10/17/16 10:54: Glucometer 92 Radiology NAME: CARRIE PHAN [facility] REC#: [id number] PT STATUS: ADM IN : 1945 PHYSICIAN: NNEKA VALENTIN APRN ADMIT DATE: 10/16/16 Signed Date of Exam: 10/16/16 CHEST 1 VIEW, AP/PA ONLY INDICATION: Abdominal distention. COMPARISON: None available. FINDINGS: Cardiomegaly. Diffuse bilateral interstitial opacities with central vascular indistinctness. Evaluation of posterior lower lobes is limited by portable radiography. No large pleural effusion. No pneumothorax. IMPRESSION: Cardiomegaly with interstitial pulmonary edema. Dictated by: Dictated on workstation # [id number] Dict: 10/16/16 1139 Trans: 10/16/16 1508 [id number] Interpreted by: VIOLET ARCHER MD Electronically signed by:VIOLET ARCHER MD 10/16/16 1510 A/P-Cardiology Assessment/Admission Diagnosis Acute cholecystitis - awaiting surgery Pulmonary edema seen on CXR with normal BNP Reported h/o Rheumatic fever at age 8 HLP HTN DM Renal insufficiency - likely chronic in some part d/t diabetic nephropathy Dementia Right lower rib pain following a non-syncopal fall a week ago Previous h/o tobaccoism - states quit in 1997 Discussion and Recomendations CXR on admission showed pulmonary edema with cardiomegaly. However BNP was normal and there is no evidence of CHF at this time. Nevertheless, she does have a GIDEON with reported h/o rheumatic fever therefore we advise echocardiogram to further evaluated LVEF and valvular status. Acute cholecystitis is being managed by surgical services. DM is being managed per medical services. She is on statin. We advise lipid panel. She reports hypertension, however he blood pressure is well controlled without any medications. We would like to thank Dr. Zaldivar for this consult. Further recommendations will be based on her hospital course. This consult is being scribed by Amie Fulton APRN on behalf of Dr. Marin after discussion regarding plan of care. Clinical Quality Measures DVT/VTE Risk/Contraindication: Risk Factor Score Per Nursin RFS Level Per Nursing on Admit: 4+=Very High Contraindications-Pharm: Other *list below* Physician Assessment Physician Assessment Lungs: clear Cor: reg Echo: LVEF 60-65%, mod mitral and aortic stenoses A&R * As documented in our note above * Cardiac risk for noncardiac surgery is estimated to be intermediate. It would be reasonable to proceed with necessary surgery ELYSSA FULTON Oct 17, 2016 09:02 KENNY MARIN MD FACP FAC CCDS Oct 17, 2016 12:34
--- NOTE | 2016-10-17 11:54 | Progress Note ---
Subjective Subjective/Events-last exam Patient no change. Still with ruq abdominal pain. Demented. Denies n/v fever sweats chills shortness of breath or chest pain. Objective Exam Vital Signs Date Time Temp Pulse Resp B/P Pulse Ox O2 Delivery O2 Flow Rate FiO2 10/17/16 08:00 99.3 68 20 131/63 96 Room Air 10/17/16 04:00 98.6 69 20 108/52 93 Room Air 10/17/16 00:00 99.6 86 20 119/71 95 Room Air 10/16/16 20:35 92 Room Air 10/16/16 20:29 98.9 75 20 124/73 92 Room Air 10/16/16 19:18 Room Air 10/16/16 16:00 98.8 80 16 130/72 95 Room Air 10/16/16 14:05 97.7 81 18 151/86 96 Room Air 10/16/16 13:54 98.2 65 16 97 Room Air I & O 10/17/16 07:00 Intake Total 1970 ml Output Total 750 ml Balance 1220 ml Capillary Refill : Less Than 3 Seconds General Appearance: No Apparent Distress WD/WN HEENT: Normal ENT Inspection Neck: Normal Inspection Respiratory: Chest Non Tender Lungs Clear Normal Breath Sounds No Accessory Muscle Use No Respiratory Distress Cardiovascular: Regular Rate, Rhythm Gastrointestinal: distended other (right upper quadrant tenderness) Extremity: Normal Inspection Neurologic/Psychiatric: Alert Skin: Warm/Dry Results Lab Laboratory Tests 10/16/16 12:45: Urine Bacteria FEWH, Urine Bilirubin NEGATIVE, Urine Casts NONE, Urine Clarity CLEAR, Urine Color YELLOW, Urine Crystals NONE, Urine Culture Indicated NO, Urine Glucose (UA) NEGATIVE, Urine Ketones NEGATIVE, Urine Leukocyte Esterase NEGATIVE, Urine Mucus NEGATIVE, Urine Nitrite NEGATIVE, Urine Protein 2+H, Urine RBC RARE, Urine RBC (Auto) NEGATIVE, Urine Specific [place] 1.015L, Urine Squamous Epithelial Cells 5-10, Urine Urobilinogen NORMAL, Urine WBC RARE, Urine pH 6.5 10/16/16 16:31: Glucometer 135H 10/16/16 19:05: B-Type Natriuretic Peptide 60.4 10/16/16 20:42: Glucometer 103 10/17/16 03:07: Glucometer 71 10/17/16 05:56: Glucometer 82 10/17/16 05:57: Alanine Aminotransferase (ALT/SGPT) 37, Albumin 2.9L, Alkaline Phosphatase 129, Anion Gap 11, Aspartate Amino Transf (AST/SGOT) 30, B-Type Natriuretic Peptide 48.3, BUN/Creatinine Ratio 18, Basophils # (Auto) 0.0, Basophils (%) (Auto) 0, Blood Urea Nitrogen 24H, Calcium Level 8.5, Carbon Dioxide Level 24, Chloride Level 104, Creatinine 1.36H, Eosinophils # (Auto) 0.1, Eosinophils (%) (Auto) 2 , Estimat Glomerular Filtration Rate 38, Glucose Level 74, Hematocrit 33L, Hemoglobin 10.8L, Lymphocytes # (Auto) 0.9L, Lymphocytes (%) (Auto) 11L, Mean Corpuscular Hemoglobin 31, Mean Corpuscular Hemoglobin Concent 33, Mean Corpuscular Volume 94, Mean Platelet Volume 10.4, Monocytes # (Auto) 1.0, Monocytes (%) (Auto) 12, Neutrophils # (Auto) 6.6, Neutrophils (%) (Auto) 76H, Platelet Count 223, Potassium Level 3.9, Red Blood Count 3.52L, Red Cell Distribution Width 12.3, Sodium Level 139, Total Bilirubin 0.5, Total Protein 5.8L, White Blood Count 8.7 10/17/16 10:54: Glucometer 92 Assessment/Plan Assessment/Plan Assessment/Plan acute cholecystitis. Abdomen distended. Dementia cholelithiasis discussed with POA this morning findings and discussed laparoscopic cholecystectomy all other indicated procedures possible open Albina Sylvester understands these and wishes to proceed. Will discuss with cardiology Clinical Quality Measures DVT/VTE Risk/Contraindication: Risk Factor Score Per Nursin RFS Level Per Nursing on Admit: 4+=Very High Contraindications-Pharm: Other *list below* AURORA LEE DO Oct 17, 2016 11:54
[2016-10-17 12:00] VITALS: BP 132/75
[2016-10-17] MEDS ORDERED: LIDOCAINE 1% INJ 20 ML (XYLOCAINE) VIAL ONE (12:10)
[2016-10-17] MEDS ORDERED: BUPIVACAINE 0.5% 30 ML (SENSORCAINE) VIAL ONE (12:10)
[2016-10-17] MEDS ORDERED: LIDOCAINE PF 2% 10 ML (XYLOCAINE) AMP ONE (12:50)
[2016-10-17] MEDS ORDERED: fentaNYL INJECTION 100 MCG/2 ML AMP ONE ×2 (12:50→15:06)
[2016-10-17] MEDS ORDERED: ROCURONIUM 50 MG/5 ML (ZEMURON) VIAL IV ONE (12:50)
[2016-10-17] MEDS ORDERED: ONDANSETRON 4 MG/2 ML (SDV) Z0FRAN ONE (12:50)
[2016-10-17] MEDS ORDERED: proPOfol 200 MG/20 ML (DIPRIVAN) VIAL IV ONE (12:50)
[2016-10-17] MEDS: LACTATED RINGERS 1,000 ML IV PRN ×2 (12:56→14:50)
[2016-10-17] MEDS ORDERED: SUCCINYLCHOLINE INJ 100 MG/5 ML SYR ONE (13:34)
[2016-10-17] MEDS ORDERED: SEVOFLURANE (ULTANE) 15 ML INHAL SOLN ONE ×8 (13:34→15:34)
[2016-10-17] MEDS ORDERED: LACTATED RINGERS 1,000 ML IV ONE ×2 (13:34→14:38)
--- NOTE | 2016-10-17 13:39 | ECHOCARDIOGRAPHY REPORT ---
PROCEDURE PHYSICIAN: SAGE MARIN DATE OF PROCEDURE: 10/16/2016 TWO DIMENSIONAL ECHOCARDIOGRAM REPORT PRIMARY PHYSICIAN: Dr. Zaldivar OTHER PHYSICIAN: Dr. Amaya REFERRING PHYSICIAN: ORDERING PHYSICIAN: Dr. Marin INDICATION FOR THE PROCEDURE: Cardiomegaly MEASUREMENTS DERIVED VALUES LV DIAMETER (LAX) NORMALS NORMALS Diastolic 4.2 (3.6-5.2) Eject. Fract. (60%+/-6%) Systolic (2.3-3.9) Diastolic Vol. % Shortening (0.22-0.42) Systolic Vol. Aortic Root IVS THICKNESS Diastolic 1.2 (0.6-1.1) LVPW THICKNESS Diastolic 1.2 (0.6-1.1) LA DIAMETER Systolic (2.1-3.7) DESCRIPTION: Two-dimensional echocardiography shows normal global left ventricular systolic function with normal regional wall motion. Left ventricular ejection fraction approximately 60%. There is mild to moderate mitral annular calcification and mild to moderate aortic valve sclerosis and calcification. There is no evidence of any significant pericardial effusion. Doppler imaging shows trivial to mild mitral and tricuspid regurgitation. Pulmonary artery systolic pressure is estimated to be within normal limits. Mean gradient across the mitral valve is approximately 3 mmHg. Peak pressure gradient across the aortic valve is approximately 24 mmHg with a mean gradient of approximately 15 mmHg and the aortic valve area is calculated to approximately 1.4 sq cm. Mitral valve area is estimated to be approximately 1.6 sq cm. CONCLUSION: 1. Normal global left ventricular systolic function with an ejection fraction of approximately 60 to 65%. 2. Aortic valve sclerosis and mitral annular calcification with moderate aortic and mitral stenoses. 3. Trivial to mild mitral and tricuspid regurgitation. 4. Pulmonary artery systolic pressure is estimated to be within normal limits. Job ID: [id number] Dictated Date: 10/17/2016 12:31:45 Magazine Grinder Loader Date: 10/17/2016 13:32:27 / roland
[2016-10-17] MEDS ORDERED: NEOSTIGMINE (BLOXIVERZ ) 1 MG/1ML 10 ML VIAL ONE (15:12)
[2016-10-17] MEDS ORDERED: GLYCOPYRROLATE 0.2 MG/ML (ROBINUL) 2 ML VIAL ONE (15:12)
[2016-10-17] MEDS ORDERED: MEPERIDINE (DEMEROL) INJ 50 MG/ML IVP PRN (16:00)
[2016-10-17] MEDS ORDERED: morphine INJ 10 MG/ML 1ML (SYR OR VIAL) IVP PRN (16:00)
[2016-10-17] MEDS ORDERED: ONDANSETRON 4 MG/2 ML (SDV) Z0FRAN IVP PRN (16:00)
[2016-10-17 16:53] VITALS: BP 149/70
--- NOTE | 2016-10-17 16:54 | Progress Note-Post Operative ---
Post-Operative Progess Note Gyroscopic Instrument Tester Dr. Jc Pre-Operative Diagnosis acute cholecystitis Post-Operative Diagnosis hydrops gallbladder, cholecystitis Post-Op Procedure Note Date of Procedure: Oct 17, 2016 Name of Procedure: laparoscopic converted to open cholecystectomy Procedure Note/Findings see note Anesthesia Type general Estimated blood loss (mL): 200mL Specimen(s) collected gallbladder AURORA LEE DO Oct 17, 2016 4:54 pm
[2016-10-17] MEDS ORDERED: morphine INJ 5 MG/ML 1 ML VIAL IV PRN (17:00)
[2016-10-17] MEDS: RT-ALBUTEROL/IPRATROPIUM 3 ML (DUONEB) VIAL INH SCH ×2 (18:48→22:15)
[2016-10-17 20:00] VITALS: BP 128/57
[2016-10-17] MEDS ORDERED: RT-ALBUTEROL/IPRATROPIUM 3 ML (DUONEB) VIAL INH PRN (20:00)
[2016-10-17] MEDS: fentaNYL INJECTION 100 MCG/2 ML AMP IV PRN (20:29)
[2016-10-17] MEDS ORDERED: PIPERACILLIN SODIUM/TAZOBACTAM 4.5 GM in NORMAL SALINE (BAXTER MINI) 100 ML IV SCH (21:00)
[2016-10-18] VITALS: BP 134/70
[2016-10-18] MEDS: RT-ALBUTEROL/IPRATROPIUM 3 ML (DUONEB) VIAL INH SCH ×6 (02:28→22:10)
[2016-10-18] MEDS: fentaNYL INJECTION 100 MCG/2 ML AMP IV PRN ×5 (02:30→20:24)
[2016-10-18 04:00] VITALS: BP 145/69
[2016-10-18] MEDS ORDERED: PIPERACILLIN/TAZO 4.5 GM VIAL (ZOSYN) IV ONE (05:09)
[2016-10-18] MEDS ORDERED: NORMAL SALINE (BAXTER MINI) 100 ML IV ONE (05:10)
[2016-10-18] MEDS: PIPERACILLIN SODIUM/TAZOBACTAM 4.5 GM in NORMAL SALINE (BAXTER MINI) 100 ML IV SCH ×3 (05:39→20:10)
[2016-10-18 05:58] LABS: BASOPHILS % (AUTO) 0 % (0-10); EOSINOPHILS % (AUTO) 1 % (0-10); LYMPHOCYTES # (AUTO) 0.6 X 10^3 (1.0-4.0); MEAN CORPUSCULAR HEMOGLOBIN 30 PG (25-34); MEAN CORPUSCULAR HGB CONC 31 G/DL (32-36); MEAN CORPUSCULAR VOLUME 96 FL (80-99); MONOCYTES # (AUTO) 1.2 X 10^3 (0.0-1.0); NEUTROPHILS # (AUTO) 6.9 X 10^3 (1.8-7.8); PLATELET COUNT 229 10^3/uL (130-400); RED BLOOD COUNT 3.36 10^6/uL (4.35-5.85); RED CELL DISTRIBUTION WIDTH 12.7 % (10.0-14.5); WHITE BLOOD COUNT 8.8 10^3/uL (4.3-11.0)
[2016-10-18 06:01] LABS: LYMPHOCYTES % (AUTO) 9 % (12-44); MONOCYTES % (AUTO) 12 % (0-12); NEUTROPHILS % (AUTO) 78 % (42-75)
[2016-10-18 06:18] LABS: ALBUMIN 2.7 G/DL (3.2-4.5); BILIRUBIN,TOTAL 0.5 MG/DL (0.1-1.0); CREATININE SERUM 1.26 MG/DL (0.60-1.30); MAGNESIUM 1.8 MG/DL (1.8-2.4); PHOSPHORUS 3.7 MG/DL (2.3-4.7); POTASSIUM 4.4 MMOL/L (3.6-5.0); TOTAL PROTEIN 5.5 G/DL (6.4-8.2)
[2016-10-18] MEDS: NS IV 1000 ML 1,000 ML IV SCH ×3 (06:30→20:11)
[2016-10-18] MEDS: inSUlin (REGULAR) HUMAN 1 UNIT/0.01 ML (CHARGE PER UNIT) SC SCH ×5 (06:30→20:19)
[2016-10-18 08:00] VITALS: BP 143/65
--- NOTE | 2016-10-18 08:30 | Progress Note ---
Subjective Subjective/Events-last exam patient is resting in bed. Easily aroused. Complaining of pain to incision site. RN to give pain med. Patient has a Mata to monitor output. Inspection of incision sites, show no drainage/ or warmth at this time. Patient also has a EVELYNE drain, noted with serosanguineous fluid.abdomen is still distended with some softness to it. Patient had bowel movement last night. Objective Exam Vital Signs Date Time Temp Pulse Resp B/P Pulse Ox O2 Delivery O2 Flow Rate FiO2 10/18/16 07:20 97 4.00 10/18/16 04:00 99.9 83 18 145/69 97 Room Air 10/18/16 02:30 99.6 10/18/16 02:28 96 4.00 10/18/16 00:00 100.3 87 18 134/70 96 Room Air 10/17/16 22:15 97 4.00 10/17/16 20:20 92 Room Air 2.00 10/17/16 20:00 98.6 90 22 128/57 97 Room Air 10/17/16 18:49 96 4.00 10/17/16 17:26 91 10/17/16 17:26 89 3.00 10/17/16 16:53 98.0 74 20 149/70 96 Room Air 10/17/16 12:00 100.0 71 20 132/75 92 Room Air I & O 10/18/16 07:00 Intake Total 2200 ml Output Total 5830 ml Balance -3630 ml Capillary Refill : Less Than 3 Seconds General Appearance: No Apparent Distress WD/WN HEENT: Normal ENT Inspection Neck: Normal Inspection Respiratory: Chest Non Tender No Accessory Muscle Use No Respiratory Distress Cardiovascular: Regular Rate, Rhythm Gastrointestinal: distended other (patient has an incision at the right upper quadrant from Open cholecystectomy. patient has 3 on incisions from laparoscopic attempt. No drainage or warmth noted. Patient also has a EVELYNE drain.) Extremity: Normal Inspection Neurologic/Psychiatric: Alert Skin: Warm/Dry Results Lab Laboratory Tests Test 10/16/16 11:00 10/16/16 12:45 10/16/16 16:31 10/16/16 19:05 Range/Units Alanine Aminotransferase (ALT/SGPT) 41 0-55 U/L Albumin 3.1 L 3.2-4.5 G/DL Alkaline Phosphatase 131 40-136 U/L Anion Gap 9 5-14 MMOL/L Aspartate Amino Transf (AST/SGOT) 33 5-34 U/L BUN/Creatinine Ratio 17 Basophils # (Auto) 0.0 0.0-0.1 10^3/uL Basophils (%) (Auto) 0 0-10 % Blood Urea Nitrogen 23 H 7-18 MG/DL Calcium Level 9.0 8.5-10.1 MG/DL Carbon Dioxide Level 22 21-32 MMOL/L Chloride Level 101 98-107 MMOL/L Creatinine 1.34 H 0.60-1.30 MG/DL Eosinophils # (Auto) 0.2 0.0-0.3 10^3/uL Eosinophils (%) (Auto) 2 0-10 % Estimat Glomerular Filtration Rate 39 Glucose Level 240 H 70-105 MG/DL Hematocrit 36 35-52 % Hemoglobin 11.8 11.5-16.0 G/DL Lipase 19 8-78 U/L Lymphocytes # (Auto) 1.1 1.0-4.0 X 10^3 Lymphocytes (%) (Auto) 12 12-44 % Mean Corpuscular Hemoglobin 30 25-34 PG Mean Corpuscular Hemoglobin Concent 32 32-36 G/DL Mean Corpuscular Volume 94 80-99 FL Mean Platelet Volume 10.7 H 7.4-10.4 FL Monocytes # (Auto) 1.1 H 0.0-1.0 X 10^3 Monocytes (%) (Auto) 12 0-12 % Neutrophils # (Auto) 6.6 1.8-7.8 X 10^3 Neutrophils (%) (Auto) 73 42-75 % Platelet Count 205 130-400 10^3/uL Potassium Level 5.0 3.6-5.0 MMOL/L Red Blood Count 3.89 L 4.35-5.85 10^6/uL Red Cell Distribution Width 12.2 10.0-14.5 % Sodium Level 132 L 135-145 MMOL/L Total Bilirubin 0.6 0.1-1.0 MG/DL Total Protein 6.4 6.4-8.2 G/DL White Blood Count 9.0 4.3-11.0 10^3/uL Urine Bacteria FEW H /HPF Urine Bilirubin NEGATIVE NEGATIVE Urine Casts NONE /LPF Urine Clarity CLEAR Urine Color YELLOW Urine Crystals NONE /LPF Urine Culture Indicated NO Urine Glucose (UA) NEGATIVE NEGATIVE Urine Ketones NEGATIVE NEGATIVE Urine Leukocyte Esterase NEGATIVE NEGATIVE Urine Mucus NEGATIVE /LPF Urine Nitrite NEGATIVE NEGATIVE Urine Protein 2+ H NEGATIVE Urine RBC RARE /HPF Urine RBC (Auto) NEGATIVE NEGATIVE Urine Specific [place] 1.015 L 1.016-1.022 Urine Squamous Epithelial Cells 5-10 /HPF Urine Urobilinogen NORMAL NORMAL MG/DL Urine WBC RARE /HPF Urine pH 6.5 5-9 Glucometer 135 H 70-110 MG/DL B-Type Natriuretic Peptide 60.4 <100.0 PG/ML Test 10/16/16 20:42 10/17/16 03:07 10/17/16 05:56 10/17/16 05:57 Range/Units Glucometer 103 71 82 70-110 MG/DL Alanine Aminotransferase (ALT/SGPT) 37 0-55 U/L Albumin 2.9 L 3.2-4.5 G/DL Alkaline Phosphatase 129 40-136 U/L Anion Gap 11 5-14 MMOL/L Aspartate Amino Transf (AST/SGOT) 30 5-34 U/L B-Type Natriuretic Peptide 48.3 <100.0 PG/ML BUN/Creatinine Ratio 18 Basophils # (Auto) 0.0 0.0-0.1 10^3/uL Basophils (%) (Auto) 0 0-10 % Blood Urea Nitrogen 24 H 7-18 MG/DL Calcium Level 8.5 8.5-10.1 MG/DL Carbon Dioxide Level 24 21-32 MMOL/L Chloride Level 104 98-107 MMOL/L Creatinine 1.36 H 0.60-1.30 MG/DL Eosinophils # (Auto) 0.1 0.0-0.3 10^3/uL Eosinophils (%) (Auto) 2 0-10 % Estimat Glomerular Filtration Rate 38 Glucose Level 74 70-105 MG/DL Hematocrit 33 L 35-52 % Hemoglobin 10.8 L 11.5-16.0 G/DL Lymphocytes # (Auto) 0.9 L 1.0-4.0 X 10^3 Lymphocytes (%) (Auto) 11 L 12-44 % Mean Corpuscular Hemoglobin 31 25-34 PG Mean Corpuscular Hemoglobin Concent 33 32-36 G/DL Mean Corpuscular Volume 94 80-99 FL Mean Platelet Volume 10.4 7.4-10.4 FL Monocytes # (Auto) 1.0 0.0-1.0 X 10^3 Monocytes (%) (Auto) 12 0-12 % Neutrophils # (Auto) 6.6 1.8-7.8 X 10^3 Neutrophils (%) (Auto) 76 H 42-75 % Platelet Count 223 130-400 10^3/uL Potassium Level 3.9 3.6-5.0 MMOL/L Red Blood Count 3.52 L 4.35-5.85 10^6/uL Red Cell Distribution Width 12.3 10.0-14.5 % Sodium Level 139 135-145 MMOL/L Total Bilirubin 0.5 0.1-1.0 MG/DL Total Protein 5.8 L 6.4-8.2 G/DL White Blood Count 8.7 4.3-11.0 10^3/uL Test 10/17/16 10:54 10/17/16 16:01 10/17/16 20:50 10/18/16 05:40 Range/Units Glucometer 92 132 H 154 H 70-110 MG/DL Alanine Aminotransferase (ALT/SGPT) 52 0-55 U/L Albumin 2.7 L 3.2-4.5 G/DL Alkaline Phosphatase 118 40-136 U/L Anion Gap 9 5-14 MMOL/L Aspartate Amino Transf (AST/SGOT) 55 H 5-34 U/L BUN/Creatinine Ratio 15 Basophils # (Auto) 0.0 0.0-0.1 10^3/uL Basophils (%) (Auto) 0 0-10 % Blood Urea Nitrogen 19 H 7-18 MG/DL Calcium Level 8.0 L 8.5-10.1 MG/DL Carbon Dioxide Level 23 21-32 MMOL/L Chloride Level 106 98-107 MMOL/L Creatinine 1.26 0.60-1.30 MG/DL Eosinophils # (Auto) 0.0 0.0-0.3 10^3/uL Eosinophils (%) (Auto) 1 0-10 % Estimat Glomerular Filtration Rate 42 Glucose Level 172 H 70-105 MG/DL Hematocrit 32 L 35-52 % Hemoglobin 10.1 L 11.5-16.0 G/DL Lymphocytes # (Auto) 0.6 L 1.0-4.0 X 10^3 Lymphocytes (%) (Auto) 9 L 12-44 % Magnesium Level 1.8 1.8-2.4 MG/DL Mean Corpuscular Hemoglobin 30 25-34 PG Mean Corpuscular Hemoglobin Concent 31 L 32-36 G/DL Mean Corpuscular Volume 96 80-99 FL Mean Platelet Volume 10.0 7.4-10.4 FL Monocytes # (Auto) 1.2 H 0.0-1.0 X 10^3 Monocytes (%) (Auto) 12 0-12 % Neutrophils # (Auto) 6.9 1.8-7.8 X 10^3 Neutrophils (%) (Auto) 78 H 42-75 % Phosphorus Level 3.7 2.3-4.7 MG/DL Platelet Count 229 130-400 10^3/uL Potassium Level 4.4 3.6-5.0 MMOL/L Red Blood Count 3.36 L 4.35-5.85 10^6/uL Red Cell Distribution Width 12.7 10.0-14.5 % Sodium Level 138 135-145 MMOL/L Total Bilirubin 0.5 0.1-1.0 MG/DL Total Protein 5.5 L 6.4-8.2 G/DL White Blood Count 8.8 4.3-11.0 10^3/uL Laboratory Tests 10/17/16 10:54: Glucometer 92 10/17/16 16:01: Glucometer 132H 10/17/16 20:50: Glucometer 154H 10/18/16 05:40: Alanine Aminotransferase (ALT/SGPT) 52, Albumin 2.7L, Alkaline Phosphatase 118, Anion Gap 9, Aspartate Amino Transf (AST/SGOT) 55H, BUN/Creatinine Ratio 15, Basophils # (Auto) 0.0, Basophils (%) (Auto) 0, Blood Urea Nitrogen 19H, Calcium Level 8.0L, Carbon Dioxide Level 23, Chloride Level 106, Creatinine 1.26 , Eosinophils # (Auto) 0.0, Eosinophils (%) (Auto) 1, Estimat Glomerular Filtration Rate 42, Glucose Level 172H, Hematocrit 32L, Hemoglobin 10.1L, Lymphocytes # (Auto) 0.6L, Lymphocytes (%) (Auto) 9L, Magnesium Level 1.8, Mean Corpuscular Hemoglobin 30, Mean Corpuscular Hemoglobin Concent 31L, Mean Corpuscular Volume 96, Mean Platelet Volume 10.0, Monocytes # (Auto) 1.2H, Monocytes (%) (Auto) 12, Neutrophils # (Auto) 6.9, Neutrophils (%) (Auto) 78H, Phosphorus Level 3.7, Platelet Count 229, Potassium Level 4.4, Red Blood Count 3.36L, Red Cell Distribution Width 12.7, Sodium Level 138, Total Bilirubin 0.5, Total Protein 5.5L, White Blood Count 8.8 Assessment/Plan Assessment/Plan Assessment/Plan status post open cholecystectomy. Dementia patient had bowel movement last night. we will continue to monitor patient. Encouraged use of respiratory spirometer at least 10 times an hour. Patient has knee-high SCDs for DVT post prophylaxis. PT to work on getting patient up today. we will also monitor closely input and output.WBC @ normal range. H&H is 10.1 and 32. Lee- Patient pain controlled. Abdomen still distended, but had BM last night. WBC down. TOlerating clear liquids. abdomen distended incisions c/d/i, drain serosang no significant abdominal distention mata for accurate i/o increase activity, pain control, IS, bowel regimen clears liquids Clinical Quality Measures DVT/VTE Risk/Contraindication: Risk Factor Score Per Nursin RFS Level Per Nursing on Admit: 4+=Very High Contraindications-Pharm: Other *list below* NIVIA SOLORZANO APRN Oct 18, 2016 8:30 am AURORA LEE DO Oct 18, 2016 4:02 pm
--- NOTE | 2016-10-18 09:27 | Progress Note (SOAP) ---
Subjective Subjective/Events-last exam patient feeling better today. Patient does have pain from the incision. Blood tests look good kidney function better. Patient on the right tract Objective Exam Vital Signs Date Time Temp Pulse Resp B/P Pulse Ox O2 Delivery O2 Flow Rate FiO2 10/18/16 08:00 99.5 80 20 143/65 97 Room Air 10/18/16 07:20 97 4.00 10/18/16 04:00 99.9 83 18 145/69 97 Room Air 10/18/16 02:30 99.6 10/18/16 02:28 96 4.00 10/18/16 00:00 100.3 87 18 134/70 96 Room Air 10/17/16 22:15 97 4.00 10/17/16 20:20 92 Room Air 2.00 10/17/16 20:00 98.6 90 22 128/57 97 Room Air 10/17/16 18:49 96 4.00 10/17/16 17:26 91 10/17/16 17:26 89 3.00 10/17/16 16:53 98.0 74 20 149/70 96 Room Air 10/17/16 12:00 100.0 71 20 132/75 92 Room Air I & O 10/18/16 07:00 Intake Total 2200 ml Output Total 5830 ml Balance -3630 ml Capillary Refill : Less Than 3 Seconds General Appearance: No Apparent Distress WD/WN HEENT: Normal ENT Inspection Neck: Full Range of Motion Normal Inspection Non Tender Respiratory: Chest Non Tender Lungs Clear Normal Breath Sounds No Accessory Muscle Use No Respiratory Distress Cardiovascular: Regular Rate, Rhythm No Murmur Gastrointestinal: non tender soft Results Lab Laboratory Tests 10/18/16 05:40 Laboratory Tests 10/17/16 10:54: Glucometer 92 10/17/16 16:01: Glucometer 132H 10/17/16 20:50: Glucometer 154H 10/18/16 05:40: Alanine Aminotransferase (ALT/SGPT) 52, Albumin 2.7L, Alkaline Phosphatase 118, Anion Gap 9, Aspartate Amino Transf (AST/SGOT) 55H, BUN/Creatinine Ratio 15, Basophils # (Auto) 0.0, Basophils (%) (Auto) 0, Blood Urea Nitrogen 19H, Calcium Level 8.0L, Carbon Dioxide Level 23, Chloride Level 106, Creatinine 1.26 , Eosinophils # (Auto) 0.0, Eosinophils (%) (Auto) 1, Estimat Glomerular Filtration Rate 42, Glucose Level 172H, Hematocrit 32L, Hemoglobin 10.1L, Lymphocytes # (Auto) 0.6L, Lymphocytes (%) (Auto) 9L, Magnesium Level 1.8, Mean Corpuscular Hemoglobin 30, Mean Corpuscular Hemoglobin Concent 31L, Mean Corpuscular Volume 96, Mean Platelet Volume 10.0, Monocytes # (Auto) 1.2H, Monocytes (%) (Auto) 12, Neutrophils # (Auto) 6.9, Neutrophils (%) (Auto) 78H, Phosphorus Level 3.7, Platelet Count 229, Potassium Level 4.4, Red Blood Count 3.36L, Red Cell Distribution Width 12.7, Sodium Level 138, Total Bilirubin 0.5, Total Protein 5.5L, White Blood Count 8.8 Microbiology 10/16/16 MRSA Screen - Final, Complete MRSA not isolated Assessment/Plan Assessment/Plan Assess & Plan/Chief Complaint acute cholecystitis. Abdomen distended. Dementia. . 10/18/16 acute cholecystitis. Abdomen distended. Dementia. Renal insufficiency improving Diagnosis/Problems: Clinical Quality Measures DVT/VTE Risk/Contraindication: Risk Factor Score Per Nursin RFS Level Per Nursing on Admit: 4+=Very High Contraindications-Pharm: Other *list below* JOSE WOODS DO Oct 18, 2016 09:27
--- NOTE | 2016-10-18 09:59 | Progress Note-Cardiology ---
Cardiology SOAP Progress Note Subjective: Sitting up in chair at the bedside. C/O abdominal incision pain. No c/o CP, SOB, palpitations. Objective: I&O/Vital Signs Vital Sign - Last 12Hours 10/18/16 10/18/16 10/18/16 10/18/16 02:28 02:30 04:00 07:20 Temp 99.6 99.9 Pulse 83 Resp 18 B/P 145/69 Pulse Ox 96 97 97 O2 Delivery Room Air O2 Flow Rate 4.00 4.00 10/18/16 10/18/16 10/18/16 08:00 10:48 12:00 Temp 99.5 99.5 Pulse 80 85 Resp 20 18 B/P 143/65 149/66 Pulse Ox 97 97 98 O2 Delivery Room Air Room Air O2 Flow Rate 4.00 Intake and Output 10/18/16 00:00 Intake Total 2100 ml Output Total 5450 ml Balance -3350 ml Weight (Pounds): 196 Weight (Ounces): 5.0 Weight (Calculated Kilograms): 89.396095 Constitutional: appears stated ageNo apparent distress, well-developed well- nourished Respiratory: No accessory muscle use, No respiratory distress, chest expansion is symmetric chest is bilaterally symmetric other (fair air entry) Cardiovascular: regular rate-rhythmNo JVD, S1 and S2 systolic murmur Gastrointestional: tender distended other (Post-op abdomen; EVELYNE drain in place) Extremities: No clubbing, No cyanosis, No significant edema Neurologic/Psychiatric: alert oriented x 3 grossly intact Skin: No rash, No ulcerations Results/Procedures: Labs Laboratory Tests 10/17/16 16:01: Glucometer 132H 10/17/16 20:50: Glucometer 154H 10/18/16 05:40: Alanine Aminotransferase (ALT/SGPT) 52, Albumin 2.7L, Alkaline Phosphatase 118, Anion Gap 9, Aspartate Amino Transf (AST/SGOT) 55H, BUN/Creatinine Ratio 15, Basophils # (Auto) 0.0, Basophils (%) (Auto) 0, Blood Urea Nitrogen 19H, Calcium Level 8.0L, Carbon Dioxide Level 23, Chloride Level 106, Creatinine 1.26 , Eosinophils # (Auto) 0.0, Eosinophils (%) (Auto) 1, Estimat Glomerular Filtration Rate 42, Glucose Level 172H, Hematocrit 32L, Hemoglobin 10.1L, Lymphocytes # (Auto) 0.6L, Lymphocytes (%) (Auto) 9L, Magnesium Level 1.8, Mean Corpuscular Hemoglobin 30, Mean Corpuscular Hemoglobin Concent 31L, Mean Corpuscular Volume 96, Mean Platelet Volume 10.0, Monocytes # (Auto) 1.2H, Monocytes (%) (Auto) 12, Neutrophils # (Auto) 6.9, Neutrophils (%) (Auto) 78H, Phosphorus Level 3.7, Platelet Count 229, Potassium Level 4.4, Red Blood Count 3.36L, Red Cell Distribution Width 12.7, Sodium Level 138, Total Bilirubin 0.5, Total Protein 5.5L, White Blood Count 8.8 10/18/16 10:58: Glucometer 303H Microbiology 10/16/16 MRSA Screen - Final, Complete MRSA not isolated A/P: Assessment: S/P open cholecystectomy per Dr. Amaya on 10-17-16 Pulmonary edema seen on CXR with normal BNP Reported h/o Rheumatic fever at age 8 Normal global left ventricular systolic function with an ejection fraction of approximately 60 to 65%. Aortic valve sclerosis and mitral annular calcification with moderate aortic and mitral stenoses. Trivial to mild mitral and tricuspid regurgitation. Pulmonary artery systolic pressure is estimated to be within normal limits. Per echocardiogram of 10-17-16 HLP HTN DM Renal insufficiency - likely chronic in some part d/t diabetic nephropathy Dementia Right lower rib pain following a non-syncopal fall a week ago Previous h/o tobaccoism - states quit in 1997 Plan: Continue current management Monitor labs Physician Assessment Physician Assessment Lungs: good bilat air entry Cor: reg A&P * As documented in our note above * I discussed her case yesterday with ELYSSA Poole Oct 18, 2016 09:59 SAGE MARIN MD [facility] Oct 18, 2016 12:53 blood pressure is well controlled without any medications. We would like to thank Dr. Zaldivar for this consult. Further recommendations will be based on her hospital course. This consult is being scribed by Amie Fulton APRN on behalf of Dr. Marin after discussion regarding plan of care. ELYSSA FULTON Oct 18, 2016 09:59
--- NOTE | 2016-10-18 11:26 | Physical Therapy Evaluation ---
PT Evaluation-General Medical Diagnosis Admission Date Oct 16, 2016 at 13:08 Medical Diagnosis: acute cholecystitis Onset Date: Oct 16, 2016 Therapy Diagnosis Therapy Diagnosis: debility/weakness Height/Weight Height (Feet): 5 Height (Inches): 2.00 Weight (Pounds): 196 Weight (Ounces): 5.0 Precautions Precautions/Isolations: Fall Prevention, Standard Precautions, Pressure Ulcer Referral Physician: Monique Reason for Referral: Evaluation/Treatment Medical History Pertinent Medical History: DM, Dementia, GERD, Heart Failure Additional Medical History abdominal distention Current History s/p open rachana Reviewed History: Yes Social History Home: Correction Prior/Core FIM Prior Level of Function Functional [place] Measure 0=Not Assessed/NA 4=Minimal Assistance 1=Total Assistance 5=Supervision or Setup 2=Maximal Assistance 6=Modified [place] 3=Moderate Assistance 7=Complete [place] Bed Mobility: 3 Transfers (B,C,W/C) (FIM): 3 Gait: 1 transfers bed to w/c for mobility per RN PT Evaluation-Current Subjective Patient states, "I'm hungry." Patient at this time is NPO. Pain Numeric Pain Scale: 0-No Pain Location: No Pain Reported Objective Patient Orientation: Confused Attachments: Oxygen, Maravilla Catheter, IV ROM/Strength ROM Lower Extremities bilateral LE WFL Strenght Lower Extremities 3/5 grossly bilateral LE; no formal testing due to dementia Integumentary/Posture Integumentary refer to nursing notes Bladder Incontinence: Maravilla Cath Posture WNL Neuromuscular (Tone, Coordination, Reflexes) diminished coordination due to inactivity and dementia Sensory Vision: Functional Hearing: Impaired Sensation Right Lower Extremit: Impaired Sensation Left Lower Extremity: Impaired Transfers Functional [place] Measure 0=Not Assessed/NA 4=Minimal Assistance 1=Total Assistance 5=Supervision or Setup 2=Maximal Assistance 6=Modified [place] 3=Moderate Assistance 7=Complete [place] Transfers (B, C, W/C) (FIM): 3 Scootin Rollin Supine to/from Sit: 3 Sit to/from Stand: 3 bed t/f WC(FIM only if WC use): 3 patient is nonambulatory; assist x 2 for safety Balance Sitting Static: Fair Sitting Dynamic: Fair Standing Static: Poor Standing Dynamic: Poor Assessment/Needs 71 y.o. demented patient, will benefit from short term skilled PT to address functional mobility and strength to improve current LOF and to safely return to [place] for continued care. Rehab Potential: Fair Post Rehab Potential-Barriers: dementia PT Group Reservations Coordinator Goals Prison Goals PT Prison Goals Time Frame: Oct 25, 2016 Transfers (B,C,W/C) (FIM): 4 PT Plan Problem List Problem List: Activity Tolerance, Functional Strength, Safety, Balance, Transfer, Bed Mobility Treatment/Plan Treatment Plan: Continue Plan of Care Treatment Plan: Bed Mobility, Education, Functional Activity Michelle, Functional Strength, Safety, Therapeutic Exercise, Transfers Treatment Duration: Oct 25, 2016 # of days/week 5-6 Visits Per Week: 5-6 Safety Risks/Education Patient Education: Transfer Techniques, Safety Issues Teaching Recipient: Patient Teaching Methods: Demonstration, Discussion Response to Teaching: Unable to Comprehend, Reinforcement Needed Discharge Recommendations Therapy D/C Recommendations: Correction Placement Time/GCodes Time In: 920 Time Out: 930 Total Billed Treatment Time: 10 Total Billed Treatment 1 visit EVMed 10 min G Codes Necessary: ANTON Hamilton PT Oct 18, 2016 11:26
[2016-10-18 12:00] VITALS: BP 149/66
[2016-10-18] MEDS: ONDANSETRON 4 MG/2 ML (SDV) Z0FRAN IV PRN (12:01)
[2016-10-18] MEDS: PANTOPRAZOLE 40 MG (PROTONIX) TAB PO SCH (12:03)
[2016-10-18] MEDS: LACTULOSE SYRUP 10GM/15ML (ENULOSE) 30ML UDC PO SCH ×4 (12:04→20:10)
[2016-10-18] MEDS: DOCUSATE SODIUM 100 MG (COLACE) CAP PO SCH ×2 (12:04→20:10)
[2016-10-18] MEDS: POLYETHYLENE GLYCOL 17 GM (MIRALAX) PACK PO SCH ×2 (12:04→20:10)
--- NOTE | 2016-10-18 13:42 | OPERATIVE REPORT ---
PROCEDURE PHYSICIAN: AURORA LEE DATE OF PROCEDURE: 10/17/2016 PREOPERATIVE DIAGNOSIS: Acute cholecystitis. POSTOPERATIVE DIAGNOSIS: Hydrops gallbladder cholecystitis. PROCEDURE: Laparoscopic converted to open cholecystectomy. SURGEON: Monique. WATERMELON INSPECTOR: Dr. Jc, who assist in retraction, dissection, and closure. ANESTHESIA: General ESTIMATED BLOOD LOSS: 200 mL. COMPLICATIONS: None. INDICATIONS: The patient is a 71-year-old female who has right upper quadrant pain and studies consistent with acute cholecystitis. The patient was admitted placed on antibiotics. She had cardiac clearance. Consent was obtained from her power of roll hauler to proceed with procedure. PROCEDURE: The patient was taken to the operating suite. She was prepped and draped in the sterile fashion. A surgical pause was performed. Just superior to the umbilicus a 12 mm incision was made. Cautery was used to dissect down to the fascia where it was scored, grasped, elevated and the abdomen was then entered. An 0 Vicryl suture was placed in a [id number] fashion and the Tomer trocar was then placed. The scope was inserted in the abdomen. There was a huge amount of omental fat that was up above the liver. There was also multiple adhesions in the right upper quadrant. A 5 mm trocar was placed in the subxiphoid region and two 5-mm trocars were placed in the right upper quadrant. Endo Triny with cautery was used to dissect down the adhesions in the right upper quadrant which are adhesions of omental fat adhered to the abdominal wall. The omental fat that was caked above the liver was then slowly brought down. This was a large phlegmon surrounding the gallbladder and cautery dissection was used to assist in removing this phlegmon mobilizing the gallbladder. The gallbladder itself was extremely distended and erythematous and edematous. The gallbladder was continued to be dissected away from the phlegmon with both blunt and hydrodissection. Once it continued be freed, the gallbladder was then decompressed, clear fluid erupted from the gallbladder which was suctioned. This was then followed by purulent material from the gallbladder as well. Some stones were brought out as well. Continued dissection was made but due to the multiple adhesions and more intrahepatic gallbladder, another 5 mm millimeters trocar was placed in the right upper quadrant to assist in retraction and dissection. At this point due to the phlegmon, it was very difficult to get to the neck of the gallbladder; therefore, we started dissecting from the fundus down towards the neck of the gallbladder. Cautery is being used along with irrigation and suction. The gallbladder was continued to be mobilized, however, due to the inflammation and phlegmon it was very difficult to visualize the cystic duct and cystic arteries; therefore, at this point, we decided to convert to an open procedure. A subcostal incision on the right was then made dissecting down through the abdominal wall until the abdomen was entered. We continued to mobilize the gallbladder towards the neck which then the cystic duct was identified. The cystic artery was then able to be dissected out. Clips were placed on proximal and distal portion. This was then transected. Continue blunt dissection was made. The cystic duct was then identified. This was dissected around. In doing so, the gallbladder did get torn away from the cystic duct. Therefore the cystic duct was able to be grasped and an Endo loop PDS was placed over the cystic duct and then tightened. There was some slight ooze from the liver, which pressure was held and achieved hemostasis along with placing Surgicel within the gallbladder fossa. Copious amounts of irrigation were used to irrigate the area as well. A 19 Pablo drain was placed in the gallbladder fossa and brought out through a 5 mm trocar site in the right upper quadrant. The peritoneum and posterior fascia was then closed using 0 Vicryl in a running fashion. The anterior fascia was then closed using 1-0 loop PDS in a running fashion. The area was irrigated and the skin was then closed using nan. The drain was secured with a silk suture. The other incisions were irrigated and then closed with nan. The abdomen was then washed and dried and sterile bandages were applied. The patient tolerated procedure well. She was taken to recovery room in stable condition. The patient will be continued on antibiotics. We will keep her n.p.o. at this time likely start liquids in the morning. Job ID: [id number] Dictated Date: 10/17/2016 17:07:46 Post Office Manager Date: 10/18/2016 13:25:40 / roland GALVEZ
--- NOTE | 2016-10-18 14:01 | Anesthesia-General Post-Op ---
General Patient Condition Mental Status/LOC: Same as Preop Cardiovascular: Satisfactory Nausea/Vomiting: Absent Respiratory: Satisfactory Pain: Controlled Complications: Absent Post Op Complications Complications None Follow Up Care/Instructions Patient Instructions None needed. Anesthesia/Patient Condition Patient Condition Patient is doing well, stable vital signs, no apparent adverse anesthesia problems. No complications reported per nursing. Patient sitting up in chair and relays to me that she is thirsty. I provided the patient with a mug of water after checking with her RN re: NPO status. MARI LUONG CRNA Oct 18, 2016 14:01
[2016-10-18 17:00] VITALS: BP 112/63
[2016-10-18 20:58] VITALS: BP 140/61
[2016-10-18] MEDS: morphine INJ 4 MG/ML 1 ML (VIAL/SYRINGE) IV PRN (22:21)
[2016-10-19] VITALS: BP 143/65
[2016-10-19] MEDS: RT-ALBUTEROL/IPRATROPIUM 3 ML (DUONEB) VIAL INH SCH ×6 (02:37→21:52)
[2016-10-19] MEDS: morphine INJ 4 MG/ML 1 ML (VIAL/SYRINGE) IV PRN ×4 (02:45→20:40)
[2016-10-19 04:00] VITALS: BP 130/58
[2016-10-19] MEDS: PIPERACILLIN SODIUM/TAZOBACTAM 4.5 GM in NORMAL SALINE (BAXTER MINI) 100 ML IV SCH ×3 (05:10→20:39)
[2016-10-19] MEDS: NS IV 1000 ML 1,000 ML IV SCH ×2 (06:08→22:30)
[2016-10-19] MEDS: inSUlin (REGULAR) HUMAN 1 UNIT/0.01 ML (CHARGE PER UNIT) SC SCH ×4 (06:08→20:37)
[2016-10-19 06:43] LABS: MEAN PLATELET VOLUME 9.9 FL (7.4-10.4); RED BLOOD COUNT 3.1 10^6/uL (4.35-5.85); RED CELL DISTRIBUTION WIDTH 12.5 % (10.0-14.5); WHITE BLOOD COUNT 8.7 10^3/uL (4.3-11.0)
[2016-10-19 07:17] LABS: ALBUMIN 2.6 G/DL (3.2-4.5); BILIRUBIN,TOTAL 0.5 MG/DL (0.1-1.0); CALCIUM 7.9 MG/DL (8.5-10.1); CREATININE SERUM 1.05 MG/DL (0.60-1.30); POTASSIUM 4.1 MMOL/L (3.6-5.0); TOTAL PROTEIN 5.5 G/DL (6.4-8.2)
--- NOTE | 2016-10-19 07:41 | Progress Note (SOAP) ---
Subjective Subjective/Events-last exam day 1 postop of gallbladder. Patient hurting right upper quadrant. Patient afebrile. Patient not passing any gas. Abdomen distended as before surgery. No abdominal sounds. Patient's lungs no basilar rales. Patient hungry this morning Objective Exam Vital Signs Date Time Temp Pulse Resp B/P Pulse Ox O2 Delivery O2 Flow Rate FiO2 10/19/16 06:25 97 3.00 10/19/16 04:00 99.0 83 20 130/58 98 Room Air 10/19/16 02:38 96 4.00 10/19/16 00:00 98.9 79 18 143/65 95 Room Air 10/18/16 22:11 96 4.00 10/18/16 20:58 99.4 71 19 140/61 99 Room Air 10/18/16 18:42 98 4.00 10/18/16 17:00 99.4 83 16 112/63 94 Room Air 10/18/16 13:37 98 4.00 10/18/16 12:00 99.5 85 18 149/66 98 Room Air 10/18/16 10:48 97 4.00 10/18/16 08:00 94 Nasal Cannula 4.00 10/18/16 08:00 99.5 80 20 143/65 97 Room Air I & O 10/19/16 07:00 Intake Total 2570 ml Output Total 1680 ml Balance 890 ml Capillary Refill : Less Than 3 Seconds General Appearance: No Apparent Distress WD/WN HEENT: Normal ENT Inspection Neck: Full Range of Motion Non Tender Respiratory: Chest Non Tender Lungs Clear Normal Breath Sounds No Accessory Muscle Use No Respiratory Distress Cardiovascular: Regular Rate, Rhythm No Murmur Gastrointestinal: other (distended abdomen. Open surgery gallbladder) Results Lab Laboratory Tests 10/19/16 05:56 Laboratory Tests 10/18/16 10:58: Glucometer 303H 10/18/16 15:53: Glucometer 455*H 10/18/16 20:14: Glucometer 320H 10/19/16 05:56: Alanine Aminotransferase (ALT/SGPT) 40, Albumin 2.6L, Alkaline Phosphatase 124, Anion Gap 6, Aspartate Amino Transf (AST/SGOT) 29, BUN/Creatinine Ratio 13, Blood Urea Nitrogen 14, Calcium Level 7.9L, Carbon Dioxide Level 23, Chloride Level 109H, Creatinine 1.05, Estimat Glomerular Filtration Rate 51, Glucose Level 160H, Hematocrit 30L, Hemoglobin 9.5L, Mean Corpuscular Hemoglobin 31, Mean Corpuscular Hemoglobin Concent 31L, Mean Corpuscular Volume 98, Mean Platelet Volume 9.9, Platelet Count 216, Potassium Level 4.1, Red Blood Count 3.10L, Red Cell Distribution Width 12.5, Sodium Level 138, Total Bilirubin 0.5, Total Protein 5.5L, White Blood Count 8.7 10/19/16 06:05: Glucometer 159H Microbiology 10/16/16 MRSA Screen - Final, Complete MRSA not isolated Assessment/Plan Assessment/Plan Assess & Plan/Chief Complaint acute cholecystitis. Abdomen distended. Dementia. . 10/18/16 acute cholecystitis. Abdomen distended. Dementia. Renal insufficiency improving. . 10/19/16. Acute cholecystitis. Dementia. Renal insufficiency. Patient doing good today. Patient hungry. Patient not passing gas . Abdomen no bowel sounds Diagnosis/Problems: Clinical Quality Measures DVT/VTE Risk/Contraindication: Risk Factor Score Per Nursin RFS Level Per Nursing on Admit: 4+=Very High Contraindications-Pharm: Other *list below* JOSE WOODS DO Oct 19, 2016 07:41
[2016-10-19 08:00] VITALS: BP 129/59
--- NOTE | 2016-10-19 08:14 | Progress Note ---
Subjective Subjective/Events-last exam Patient sleeping. Easily aroused. Patient reporting pain to the incision site. Sites look clean and dry. No drainage or signs of infection. Abdomen is still distended but soft. Objective Exam Vital Signs Date Time Temp Pulse Resp B/P Pulse Ox O2 Delivery O2 Flow Rate FiO2 10/19/16 06:25 97 3.00 10/19/16 04:00 99.0 83 20 130/58 98 Room Air 10/19/16 02:38 96 4.00 10/19/16 00:00 98.9 79 18 143/65 95 Room Air 10/18/16 22:11 96 4.00 10/18/16 20:58 99.4 71 19 140/61 99 Room Air 10/18/16 18:42 98 4.00 10/18/16 17:00 99.4 83 16 112/63 94 Room Air 10/18/16 13:37 98 4.00 10/18/16 12:00 99.5 85 18 149/66 98 Room Air 10/18/16 10:48 97 4.00 I & O 10/19/16 07:00 Intake Total 2570 ml Output Total 1680 ml Balance 890 ml Capillary Refill : Less Than 3 Seconds General Appearance: No Apparent Distress WD/WN HEENT: Normal ENT Inspection Neck: Full Range of Motion Non Tender Respiratory: Chest Non Tender No Accessory Muscle Use No Respiratory Distress Cardiovascular: Regular Rate, Rhythm No Murmur Gastrointestinal: soft distended other (distended abdomen. Open surgery gallbladder. Incision sites look clean and dry. ) Extremity: No Calf Tenderness Pedal Edema (+1 pitting) Neurologic/Psychiatric: Alert Skin: Warm/Dry Results Lab Laboratory Tests Test 10/17/16 10:54 10/17/16 16:01 10/17/16 20:50 10/18/16 05:40 Range/Units Glucometer 92 132 H 154 H 70-110 MG/DL Alanine Aminotransferase (ALT/SGPT) 52 0-55 U/L Albumin 2.7 L 3.2-4.5 G/DL Alkaline Phosphatase 118 40-136 U/L Anion Gap 9 5-14 MMOL/L Aspartate Amino Transf (AST/SGOT) 55 H 5-34 U/L BUN/Creatinine Ratio 15 Basophils # (Auto) 0.0 0.0-0.1 10^3/uL Basophils (%) (Auto) 0 0-10 % Blood Urea Nitrogen 19 H 7-18 MG/DL Calcium Level 8.0 L 8.5-10.1 MG/DL Carbon Dioxide Level 23 21-32 MMOL/L Chloride Level 106 98-107 MMOL/L Creatinine 1.26 0.60-1.30 MG/DL Eosinophils # (Auto) 0.0 0.0-0.3 10^3/uL Eosinophils (%) (Auto) 1 0-10 % Estimat Glomerular Filtration Rate 42 Glucose Level 172 H 70-105 MG/DL Hematocrit 32 L 35-52 % Hemoglobin 10.1 L 11.5-16.0 G/DL Lymphocytes # (Auto) 0.6 L 1.0-4.0 X 10^3 Lymphocytes (%) (Auto) 9 L 12-44 % Magnesium Level 1.8 1.8-2.4 MG/DL Mean Corpuscular Hemoglobin 30 25-34 PG Mean Corpuscular Hemoglobin Concent 31 L 32-36 G/DL Mean Corpuscular Volume 96 80-99 FL Mean Platelet Volume 10.0 7.4-10.4 FL Monocytes # (Auto) 1.2 H 0.0-1.0 X 10^3 Monocytes (%) (Auto) 12 0-12 % Neutrophils # (Auto) 6.9 1.8-7.8 X 10^3 Neutrophils (%) (Auto) 78 H 42-75 % Phosphorus Level 3.7 2.3-4.7 MG/DL Platelet Count 229 130-400 10^3/uL Potassium Level 4.4 3.6-5.0 MMOL/L Red Blood Count 3.36 L 4.35-5.85 10^6/uL Red Cell Distribution Width 12.7 10.0-14.5 % Sodium Level 138 135-145 MMOL/L Total Bilirubin 0.5 0.1-1.0 MG/DL Total Protein 5.5 L 6.4-8.2 G/DL White Blood Count 8.8 4.3-11.0 10^3/uL Test 10/18/16 10:58 10/18/16 15:53 10/18/16 20:14 10/19/16 05:56 Range/Units Glucometer 303 H 455 *H 320 H 70-110 MG/DL Alanine Aminotransferase (ALT/SGPT) 40 0-55 U/L Albumin 2.6 L 3.2-4.5 G/DL Alkaline Phosphatase 124 40-136 U/L Anion Gap 6 5-14 MMOL/L Aspartate Amino Transf (AST/SGOT) 29 5-34 U/L BUN/Creatinine Ratio 13 Blood Urea Nitrogen 14 7-18 MG/DL Calcium Level 7.9 L 8.5-10.1 MG/DL Carbon Dioxide Level 23 21-32 MMOL/L Chloride Level 109 H 98-107 MMOL/L Creatinine 1.05 0.60-1.30 MG/DL Estimat Glomerular Filtration Rate 51 Glucose Level 160 H 70-105 MG/DL Hematocrit 30 L 35-52 % Hemoglobin 9.5 L 11.5-16.0 G/DL Mean Corpuscular Hemoglobin 31 25-34 PG Mean Corpuscular Hemoglobin Concent 31 L 32-36 G/DL Mean Corpuscular Volume 98 80-99 FL Mean Platelet Volume 9.9 7.4-10.4 FL Platelet Count 216 130-400 10^3/uL Potassium Level 4.1 3.6-5.0 MMOL/L Red Blood Count 3.10 L 4.35-5.85 10^6/uL Red Cell Distribution Width 12.5 10.0-14.5 % Sodium Level 138 135-145 MMOL/L Total Bilirubin 0.5 0.1-1.0 MG/DL Total Protein 5.5 L 6.4-8.2 G/DL White Blood Count 8.7 4.3-11.0 10^3/uL Test 10/19/16 06:05 Range/Units Glucometer 159 H 70-110 MG/DL Laboratory Tests 10/18/16 10:58: Glucometer 303H 10/18/16 15:53: Glucometer 455*H 10/18/16 20:14: Glucometer 320H 10/19/16 05:56: Alanine Aminotransferase (ALT/SGPT) 40, Albumin 2.6L, Alkaline Phosphatase 124, Anion Gap 6, Aspartate Amino Transf (AST/SGOT) 29, BUN/Creatinine Ratio 13, Blood Urea Nitrogen 14, Calcium Level 7.9L, Carbon Dioxide Level 23, Chloride Level 109H, Creatinine 1.05, Estimat Glomerular Filtration Rate 51, Glucose Level 160H, Hematocrit 30L, Hemoglobin 9.5L, Mean Corpuscular Hemoglobin 31, Mean Corpuscular Hemoglobin Concent 31L, Mean Corpuscular Volume 98, Mean Platelet Volume 9.9, Platelet Count 216, Potassium Level 4.1, Red Blood Count 3.10L, Red Cell Distribution Width 12.5, Sodium Level 138, Total Bilirubin 0.5, Total Protein 5.5L, White Blood Count 8.7 10/19/16 06:05: Glucometer 159H Microbiology 10/16/16 MRSA Screen - Final, Complete MRSA not isolated Assessment/Plan Assessment/Plan Assessment/Plan status post open cholecystectomy. Dementia We will continue to monitor patient. RAZA drain still noted with serosanguineous fluid. Encouraged use of respiratory spirometer. DC [place]. Increase diet as tolerated. WBC still normal. H&H 9.5 and 30. Amaya- tolerating liquid diet. pain controlled. abdomen still with distention incisions c/d/i raza serosang no significant tenderness postop anemia hold dvt prophylaxis except scd's diet as tolerates bowel regimen assessment as above Clinical Quality Measures DVT/VTE Risk/Contraindication: Risk Factor Score Per Nursin RFS Level Per Nursing on Admit: 4+=Very High Contraindications-Pharm: Other *list below* NIVIA SOLORZANO APRN Oct 19, 2016 08:14 AURORA AMAAY DO Oct 19, 2016 17:39
--- NOTE | 2016-10-19 10:08 | Progress Note-Cardiology ---
Cardiology SOAP Progress Note Subjective: Does not report cp or palp or syncope Has some gen malaise and discomfort Objective: I&O/Vital Signs Vital Sign - Last 12Hours 10/18/16 10/19/16 10/19/16 10/19/16 22:11 00:00 02:38 04:00 Temp 98.9 99.0 Pulse 79 83 Resp 18 20 B/P 143/65 130/58 Pulse Ox 96 95 96 98 O2 Delivery Room Air Room Air O2 Flow Rate 4.00 4.00 10/19/16 10/19/16 06:25 10:02 Pulse Ox 97 96 O2 Flow Rate 3.00 3.00 Intake and Output 10/19/16 00:00 Intake Total 1970 ml Output Total 1310 ml Balance 660 ml Weight (Pounds): 196 Weight (Ounces): 5.0 Weight (Calculated Kilograms): 89.969990 Constitutional: appears stated ageNo apparent distress, well-developed well- nourished Respiratory: No accessory muscle use, No respiratory distress, chest expansion is symmetric chest is bilaterally symmetric other (fair air entry) Cardiovascular: regular rate-rhythmNo JVD, S1 and S2 systolic murmur Gastrointestional: tender distended other (Post-op abdomen; EVELYNE drain in place) Extremities: No clubbing, No cyanosis, No significant edema Neurologic/Psychiatric: alert oriented x 3 grossly intact Skin: No rash, No ulcerations Results/Procedures: Labs Laboratory Tests 10/18/16 10:58: Glucometer 303H 10/18/16 15:53: Glucometer 455*H 10/18/16 20:14: Glucometer 320H 10/19/16 05:56: Alanine Aminotransferase (ALT/SGPT) 40, Albumin 2.6L, Alkaline Phosphatase 124, Anion Gap 6, Aspartate Amino Transf (AST/SGOT) 29, BUN/Creatinine Ratio 13, Blood Urea Nitrogen 14, Calcium Level 7.9L, Carbon Dioxide Level 23, Chloride Level 109H, Creatinine 1.05, Estimat Glomerular Filtration Rate 51, Glucose Level 160H, Hematocrit 30L, Hemoglobin 9.5L, Mean Corpuscular Hemoglobin 31, Mean Corpuscular Hemoglobin Concent 31L, Mean Corpuscular Volume 98, Mean Platelet Volume 9.9, Platelet Count 216, Potassium Level 4.1, Red Blood Count 3.10L, Red Cell Distribution Width 12.5, Sodium Level 138, Total Bilirubin 0.5, Total Protein 5.5L, White Blood Count 8.7 10/19/16 06:05: Glucometer 159H Microbiology 10/16/16 MRSA Screen - Final, Complete MRSA not isolated Laboratory Tests 10/18/16 05:40 10/19/16 05:56 A/P: Assessment: S/P open cholecystectomy per Dr. Amaya on 10-17-16 Post-op blood loss anemia Pulmonary edema reported on CXR at admission; normal BNP, no clinical CHF Reported h/o Rheumatic fever at age 8 Normal global left ventricular systolic function with an ejection fraction of approximately 60 to 65%. Aortic valve sclerosis and mitral annular calcification with moderate aortic and mitral stenoses. Trivial to mild mitral and tricuspid regurgitation. Pulmonary artery systolic pressure is estimated to be within normal limits. Per echocardiogram of 10-17-16 HLP HTN DM Renal insufficiency - likely chronic in some part d/t diabetic nephropathy Dementia Right lower rib pain following a non-syncopal fall a week ago Previous h/o tobaccoism - states quit in 1997 Plan: Continue current management Monitor labs SAGE ZUNIGA MD FACP FAC CCDS Oct 19, 2016 10:08
--- NOTE | 2016-10-19 10:09 | Physical Therapy Daily Note ---
PT Daily Note-Current Subjective Patient is in bed and agrees to PT. Pain Numeric Pain Scale: 5-Moderate Pain Location: Right Location Body Site: Side Pain Description: Ache Comment: FLACC Appearance severe abdominal distention Mental Status Patient Orientation: Confused Attachments: Oxygen, [place] Catheter, IV Transfers Functional [place] Measure 0=Not Assessed/NA 4=Minimal Assistance 1=Total Assistance 5=Supervision or Setup 2=Maximal Assistance 6=Modified [place] 3=Moderate Assistance 7=Complete IndependenceIRFPAI Quality Coding Scale 6 Independent with activity with or without an assistive device 5 Patient requires set up or clean up by helper. Patient completes activity by themselves 4 Supervision or touching assist (CGA). [place] provide cues , steadying assist 3 The helper provides less than half the effort to complete the activity 2 The helper provides more than half the effort to complete the activity 1 Dependent. The helper does all the effort to complete an activity 7 Patient refused to complete or attempt activity 9 The patient did not perform the activity before the current illness or injury 88 Not attempted due to Medical conditions or safety concerns Transfers (B, C, W/C) (FIM): 3 Scootin Rollin Supine to/from Sit: 3 Sit to/from Stand: 3 Bed to/from Chair: 3 Patient able to assist with use of FWW with sit to stand transfers and ambulate 3' to recliner; patient impulsive to sit in recliner and is unsafe to perform alone Exercises Supine Ex: Ankle pumps, Heel Slides, Straight leg raise Supine Reps: 10 Seated Therapy Exercises: Ankle pumps, Long arc quads Seated Reps: 10 Assessment Patient has difficulty following direction,however, did perform improved transfers. Patient is up in recliner with needs met. PT Physician Office Specialist Goals Fdc Goals PT Physician Office Specialist Goals Time Frame: Oct 25, 2016 Transfers (B,C,W/C) (FIM): 4 PT Plan Treatment/Plan Treatment Plan: Continue Plan of Care Treatment Plan: Bed Mobility, Education, Functional Activity Michelle, Functional Strength, Safety, Therapeutic Exercise, Transfers Treatment Duration: Oct 25, 2016 Visits Per Week: 5-6 Time/GCodes Time In: 830 Time Out: 853 Total Billed Treatment Time: 23 Total Billed Treatment 1 visit FA 10 min EX 13 min ANTON KOWALSKI PT Oct 19, 2016 10:09
[2016-10-19] MEDS ORDERED: HYDR-3062 PO (10:46)
[2016-10-19] MEDS ORDERED: AMOX-358 PO (10:46)
--- NOTE | 2016-10-19 10:50 | Discharge Inst-Simple/Standard ---
Discharge Inst-Standard Patient Instructions/Follow Up Plan of Care/Instructions/FU: Discharge pending. Follow up with Dr. Amaya in 7-10 days. Take medication as directed. long-term needs to call clinic in 2 days to give update on EVELYNE Drain. Activity as Tolerated: No Discharge Diet: No Restrictions Other Inst to Patient Follow up Appt: Make appointment for 10-12 days. Instructions: No lifting greater than 10 pounds. No strenuous activity. May shower in 24 hours, no tub bath or soaking. Use incentive spirometer at home as directed. No Smoking Skin/Wound Care: Keep clean and dry. Symptoms to Report: Appetite Changes, Extremity Discoloration, Numbness/Tingling, Swelling Increased , Bleeding Excessive, Eyesight Changes, Pain Increased, Urine Color Change, Constipation(Persistent), Fever over 101 degree F, Pain/Pressure in chest, Urinating Difficulty, Cough Up/Vomit Blood, Heart Beat Irreg/Pounding, Pain/ Pressure in jaw, Vaginal Bleeding Increase, Cramps in feet or legs, Lightheadedness, Pain/Pressure in shoulder, Diarrhea(Persistent), Memory Changes Suddenly, Questions/Concerns, Weight gain consecutive days, Dizziness/ Fainting, Nausea/Vomiting, Shortness of Breath, Weight gain over 2 pounds. If eyes or skin turn yellow notify physician. If questions or concerns contact your physician Or seek help at emergency department. NIVIA SOLORZANO APRN Oct 19, 2016 10:50
[2016-10-19] MEDS: POLYETHYLENE GLYCOL 17 GM (MIRALAX) PACK PO SCH ×2 (11:09→20:38)
[2016-10-19] MEDS: DOCUSATE SODIUM 100 MG (COLACE) CAP PO SCH ×2 (11:09→20:38)
[2016-10-19] MEDS: PANTOPRAZOLE 40 MG (PROTONIX) TAB PO SCH (11:09)
[2016-10-19] MEDS: LACTULOSE SYRUP 10GM/15ML (ENULOSE) 30ML UDC PO SCH ×4 (11:09→20:38)
[2016-10-19 12:00] VITALS: BP 115/56
[2016-10-19 17:00] VITALS: BP 128/61
[2016-10-19 19:56] VITALS: BP 146/67
[2016-10-20] VITALS: BP 131/68
[2016-10-20] MEDS: RT-ALBUTEROL/IPRATROPIUM 3 ML (DUONEB) VIAL INH SCH ×5 (02:26→18:49)
[2016-10-20] MEDS: PIPERACILLIN SODIUM/TAZOBACTAM 4.5 GM in NORMAL SALINE (BAXTER MINI) 100 ML IV SCH ×3 (05:07→22:04)
[2016-10-20] MEDS: inSUlin (REGULAR) HUMAN 1 UNIT/0.01 ML (CHARGE PER UNIT) SC SCH ×4 (05:38→22:05)
[2016-10-20 05:53] LABS: MEAN PLATELET VOLUME 9.9 FL (7.4-10.4); RED BLOOD COUNT 3.12 10^6/uL (4.35-5.85); RED CELL DISTRIBUTION WIDTH 12.4 % (10.0-14.5); WHITE BLOOD COUNT 9.7 10^3/uL (4.3-11.0)
[2016-10-20 06:05] LABS: ALBUMIN 2.6 G/DL (3.2-4.5); BILIRUBIN,TOTAL 0.5 MG/DL (0.1-1.0); CALCIUM 8.1 MG/DL (8.5-10.1); CREATININE SERUM 1.1 MG/DL (0.60-1.30); TOTAL PROTEIN 5.6 G/DL (6.4-8.2)
[2016-10-20 08:00] VITALS: BP 161/73
--- NOTE | 2016-10-20 08:17 | Progress Note (SOAP) ---
Subjective Subjective/Events-last exam patient feeling better. Patient still having pain in the right upper quadrant. Patient states she's not passing any gas. Abdomen distended. Hemoglobin 9.4 hematocrit 31 anemia with surgery. GFR 49. Patient afebrile. Acute cholecystitis. Dementia Chest x-ray showing CHF and BNP normal Objective Exam Vital Signs Date Time Temp Pulse Resp B/P Pulse Ox O2 Delivery O2 Flow Rate FiO2 10/20/16 06:55 95 3.00 10/20/16 02:26 92 3.00 10/20/16 00:00 99.2 71 20 131/68 98 Room Air 10/19/16 21:53 97 3.00 10/19/16 19:56 99.1 74 22 146/67 97 Room Air 10/19/16 18:27 97 3.00 10/19/16 17:00 99.1 79 20 128/61 98 Room Air 10/19/16 14:35 96 3.00 10/19/16 12:00 98.4 79 16 115/56 92 Room Air 10/19/16 10:02 96 3.00 I & O 10/20/16 07:00 Intake Total 4292 ml Output Total 510 ml Balance 3782 ml Capillary Refill : Less Than 3 Seconds General Appearance: No Apparent Distress WD/WN HEENT: Normal ENT Inspection Neck: Full Range of Motion Normal Inspection Respiratory: Chest Non Tender Normal Breath Sounds No Accessory Muscle Use No Respiratory Distress Cardiovascular: Regular Rate, Rhythm No Murmur Gastrointestinal: distended other (no bowel sounds) Results Lab Laboratory Tests 10/20/16 05:35 Laboratory Tests 10/19/16 11:40: Glucometer 221H 10/19/16 16:39: Glucometer 335H 10/19/16 20:11: Glucometer 295H 10/20/16 05:33: Glucometer 127H 10/20/16 05:35: Alanine Aminotransferase (ALT/SGPT) 32, Albumin 2.6L, Alkaline Phosphatase 138H , Anion Gap 7, Aspartate Amino Transf (AST/SGOT) 22, BUN/Creatinine Ratio 11, Blood Urea Nitrogen 12, Calcium Level 8.1L, Carbon Dioxide Level 23, Chloride Level 106, Creatinine 1.10, Estimat Glomerular Filtration Rate 49, Glucose Level 125H, Hematocrit 31L, Hemoglobin 9.4L, Mean Corpuscular Hemoglobin 30, Mean Corpuscular Hemoglobin Concent 31L, Mean Corpuscular Volume 98, Mean Platelet Volume 9.9, Platelet Count 249, Potassium Level 4.0, Red Blood Count 3.12L, Red Cell Distribution Width 12.4, Sodium Level 136, Total Bilirubin 0.5, Total Protein 5.6L, White Blood Count 9.7 Microbiology 10/16/16 MRSA Screen - Final, Complete MRSA not isolated Assessment/Plan Assessment/Plan Assess & Plan/Chief Complaint acute cholecystitis. Abdomen distended. Dementia. . 10/18/16 acute cholecystitis. Abdomen distended. Dementia. Renal insufficiency improving. . 10/19/16. Acute cholecystitis. Dementia. Renal insufficiency. Patient doing good today. Patient hungry. Patient not passing gas . Abdomen no bowel sounds. . 10/20/16. Acute cholecystitis. Renal insufficiency. Dementia. Patient feeling better. Patient not passing any gas Diagnosis/Problems: Clinical Quality Measures DVT/VTE Risk/Contraindication: Risk Factor Score Per Nursin RFS Level Per Nursing on Admit: 4+=Very High Contraindications-Pharm: Other *list below* JOSE WOODS DO Oct 20, 2016 08:17
[2016-10-20] MEDS: DOCUSATE SODIUM 100 MG (COLACE) CAP PO SCH ×2 (08:43→22:04)
[2016-10-20] MEDS: PANTOPRAZOLE 40 MG (PROTONIX) TAB PO SCH (08:43)
[2016-10-20] MEDS: POLYETHYLENE GLYCOL 17 GM (MIRALAX) PACK PO SCH ×2 (08:43→22:05)
[2016-10-20] MEDS: LACTULOSE SYRUP 10GM/15ML (ENULOSE) 30ML UDC PO SCH ×4 (08:43→22:04)
--- NOTE | 2016-10-20 10:34 | Progress Note (SOAP) ---
Subjective Subjective/Events-last exam Patient seen with Dr. Campos. Patient reports continue RUQ abdominal pain. No N/ V. Reports that she is passing gas and having BM. No fevers/chills. Tolerating diet. RN reports patient is need help with mobility and some ADLs. Review of Systems General: No Chills, No Night Sweats Gastrointestinal: : Abdominal PainNo: Nausea, Vomiting Objective Exam Vital Signs Date Time Temp Pulse Resp B/P Pulse Ox O2 Delivery O2 Flow Rate FiO2 10/20/16 08:00 99.1 83 26 161/73 96 Nasal Cannula 3.00 10/20/16 06:55 95 3.00 10/20/16 02:26 92 3.00 10/20/16 00:00 99.2 71 20 131/68 98 Room Air 10/19/16 21:53 97 3.00 10/19/16 19:56 99.1 74 22 146/67 97 Room Air 10/19/16 18:27 97 3.00 10/19/16 17:00 99.1 79 20 128/61 98 Room Air 10/19/16 14:35 96 3.00 10/19/16 12:00 98.4 79 16 115/56 92 Room Air I & O 10/20/16 07:00 Intake Total 4292 ml Output Total 510 ml Balance 3782 ml Capillary Refill : Less Than 3 Seconds General Appearance: No Apparent Distress WD/WN HEENT: PERRL/EOMI Neck: Full Range of Motion Normal Inspection Non Tender Supple Respiratory: No Accessory Muscle Use No Respiratory Distress Cardiovascular: Regular Rate, Rhythm Gastrointestinal: soft distended tenderness (RUQ. Incisions C/D/I. RUQ drain with minimal SS drainage.) Extremity: Normal Capillary Refill Normal Inspection Neurologic/Psychiatric: Alert Skin: Normal Color Warm/Dry Results Lab Laboratory Tests 10/19/16 11:40: Glucometer 221H 10/19/16 16:39: Glucometer 335H 10/19/16 20:11: Glucometer 295H 10/20/16 05:33: Glucometer 127H 10/20/16 05:35: Alanine Aminotransferase (ALT/SGPT) 32, Albumin 2.6L, Alkaline Phosphatase 138H , Anion Gap 7, Aspartate Amino Transf (AST/SGOT) 22, BUN/Creatinine Ratio 11, Blood Urea Nitrogen 12, Calcium Level 8.1L, Carbon Dioxide Level 23, Chloride Level 106, Creatinine 1.10, Estimat Glomerular Filtration Rate 49, Glucose Level 125H, Hematocrit 31L, Hemoglobin 9.4L, Mean Corpuscular Hemoglobin 30, Mean Corpuscular Hemoglobin Concent 31L, Mean Corpuscular Volume 98, Mean Platelet Volume 9.9, Platelet Count 249, Potassium Level 4.0, Red Blood Count 3.12L, Red Cell Distribution Width 12.4, Sodium Level 136, Total Bilirubin 0.5, Total Protein 5.6L, White Blood Count 9.7 Microbiology 10/16/16 MRSA Screen - Final, Complete MRSA not isolated Assessment/Plan Assessment/Plan Assess & Plan/Chief Complaint A 71 year old female who is S/P open cholecystectomy. VSS. Advance diet to DYS3. Continue pain and nausea medications prn. Social service consult for placement upon discharge. Diagnosis/Problems: Clinical Quality Measures DVT/VTE Risk/Contraindication: Risk Factor Score Per Nursin RFS Level Per Nursing on Admit: 4+=Very High Contraindications-Pharm: Other *list below* ARIELLE BAILEY SUPPLIER RELATIONSHIP DIRECTOR Oct 20, 2016 10:33
--- NOTE | 2016-10-20 10:44 | Physical Therapy Daily Note ---
PT Daily Note-Current Subjective Pt agreeable and without complaint. Pt states "I peed the bed." Pt states " you are a nice lady". Mental Status Patient Orientation: Person Attachments: Oxygen, IV Port O2 with pt throughout at 2L/min Transfers Functional [place] Measure 0=Not Assessed/NA 4=Minimal Assistance 1=Total Assistance 5=Supervision or Setup 2=Maximal Assistance 6=Modified [place] 3=Moderate Assistance 7=Complete IndependenceIRFPAI Quality Coding Scale 6 Independent with activity with or without an assistive device 5 Patient requires set up or clean up by helper. Patient completes activity by themselves 4 Supervision or touching assist (CGA). [place] provide cues , steadying assist 3 The helper provides less than half the effort to complete the activity 2 The helper provides more than half the effort to complete the activity 1 Dependent. The helper does all the effort to complete an activity 7 Patient refused to complete or attempt activity 9 The patient did not perform the activity before the current illness or injury 88 Not attempted due to Medical conditions or safety concerns Trsfrs and bed mobility mod-max A to EOB. Sit to stand min-CGA. Gait Training Gait Assistive Device: FWW Pt stood with FWW and walked 3-4ft to shower chair with vc's for sequence. Treatments Pt seen for transfer and gait out of bed to shower chair. Pt taken down to shower room, in care of nurse aid post therapy. Assessment Current Status: Good Progress Pt elpidio well, good participation. Pt in care of nurse aid with port O2 in shower room. PT Shelter Goals Him Director Goals PT Shelter Goals Time Frame: Oct 25, 2016 Transfers (B,C,W/C) (FIM): 4 PT Plan Treatment/Plan Treatment Plan: Continue Plan of Care Treatment Plan: Bed Mobility, Education, Functional Activity Michelle, Functional Strength, Safety, Therapeutic Exercise, Transfers Treatment Duration: Oct 25, 2016 Visits Per Week: 5-6 Time/GCodes Time In: 850 Time Out: 905 Total Billed Treatment Time: 15 Total Billed Treatment 1, gait 15min FUNMILAYO FORTE CPTA Oct 20, 2016 10:44
[2016-10-20] MEDS: CATHETER FLUSH 10 ML SYR IV PRN (12:56)
--- NOTE | 2016-10-20 13:50 | Progress Note-Cardiology ---
Cardiology SOAP Progress Note Subjective: Does not report cp or palp or syncope Objective: I&O/Vital Signs Vital Sign - Last 12Hours 10/20/16 10/20/16 10/20/16 10/20/16 02:26 06:55 08:00 10:43 Temp 99.1 Pulse 83 Resp 26 B/P 161/73 Pulse Ox 92 95 96 90 O2 Delivery Nasal Cannula O2 Flow Rate 3.00 3.00 3.00 Intake and Output 10/20/16 00:00 Intake Total 3840 ml Output Total 510 ml Balance 3330 ml Weight (Pounds): 196 Weight (Ounces): 5.0 Weight (Calculated Kilograms): 89.950766 Constitutional: appears stated ageNo apparent distress, well-developed well- nourished Respiratory: No accessory muscle use, No respiratory distress, chest expansion is symmetric chest is bilaterally symmetric other (fair air entry) Cardiovascular: regular rate-rhythmNo JVD, S1 and S2 systolic murmur Gastrointestional: tender distended other (Post-op abdomen; EVELYNE drain in place) Extremities: No clubbing, No cyanosis, No significant edema Neurologic/Psychiatric: alert oriented x 3 grossly intact Skin: No rash, No ulcerations Results/Procedures: Labs Laboratory Tests 10/19/16 16:39: Glucometer 335H 10/19/16 20:11: Glucometer 295H 10/20/16 05:33: Glucometer 127H 10/20/16 05:35: Alanine Aminotransferase (ALT/SGPT) 32, Albumin 2.6L, Alkaline Phosphatase 138H , Anion Gap 7, Aspartate Amino Transf (AST/SGOT) 22, BUN/Creatinine Ratio 11, Blood Urea Nitrogen 12, Calcium Level 8.1L, Carbon Dioxide Level 23, Chloride Level 106, Creatinine 1.10, Estimat Glomerular Filtration Rate 49, Glucose Level 125H, Hematocrit 31L, Hemoglobin 9.4L, Mean Corpuscular Hemoglobin 30, Mean Corpuscular Hemoglobin Concent 31L, Mean Corpuscular Volume 98, Mean Platelet Volume 9.9, Platelet Count 249, Potassium Level 4.0, Red Blood Count 3.12L, Red Cell Distribution Width 12.4, Sodium Level 136, Total Bilirubin 0.5, Total Protein 5.6L, White Blood Count 9.7 10/20/16 10:36: Glucometer 167H Microbiology 10/16/16 MRSA Screen - Final, Complete MRSA not isolated Laboratory Tests 10/19/16 05:56 10/20/16 05:35 A/P: Assessment: S/P open cholecystectomy per Dr. Amaya on 10-17-16 Post-op blood loss anemia Pulmonary edema reported on CXR at admission; normal BNP, no clinical CHF Reported h/o Rheumatic fever at age 8 Normal global left ventricular systolic function with an ejection fraction of approximately 60 to 65%. Aortic valve sclerosis and mitral annular calcification with moderate aortic and mitral stenoses. Trivial to mild mitral and tricuspid regurgitation. Pulmonary artery systolic pressure is estimated to be within normal limits. Per echocardiogram of 10-17-16 HLP HTN DM Renal insufficiency - likely chronic in some part d/t diabetic nephropathy Dementia Right lower rib pain following a non-syncopal fall a week ago Previous h/o tobaccoism - states quit in 1997 Plan: Continue clinical monitoring Continue current management Monitor labs SAGE ZUNIGA MD FACP FAC CCDS Oct 20, 2016 13:50
[2016-10-20 16:07] VITALS: BP 139/64
[2016-10-21] VITALS: BP 174/73
[2016-10-21] MEDS: ONDANSETRON 4 MG/2 ML (SDV) Z0FRAN IV PRN ×2 (02:28→09:59)
[2016-10-21 04:00] VITALS: BP 156/70
[2016-10-21] MEDS: fentaNYL INJECTION 100 MCG/2 ML AMP IV PRN (04:02)
[2016-10-21 04:39] LABS: MEAN PLATELET VOLUME 9.9 FL (7.4-10.4); RED BLOOD COUNT 3.59 10^6/uL (4.35-5.85); WHITE BLOOD COUNT 9.8 10^3/uL (4.3-11.0)
[2016-10-21 05:03] LABS: ALBUMIN 2.9 G/DL (3.2-4.5); BILIRUBIN,TOTAL 0.6 MG/DL (0.1-1.0); CREATININE SERUM 1.04 MG/DL (0.60-1.30); POTASSIUM 4.1 MMOL/L (3.6-5.0); TOTAL PROTEIN 6.3 G/DL (6.4-8.2)
[2016-10-21] MEDS: PIPERACILLIN SODIUM/TAZOBACTAM 4.5 GM in NORMAL SALINE (BAXTER MINI) 100 ML IV SCH ×2 (05:18→13:15)
[2016-10-21] MEDS: inSUlin (REGULAR) HUMAN 1 UNIT/0.01 ML (CHARGE PER UNIT) SC SCH ×4 (05:18→21:36)
[2016-10-21] MEDS: RT-ALBUTEROL/IPRATROPIUM 3 ML (DUONEB) VIAL INH SCH ×4 (07:06→20:01)
--- NOTE | 2016-10-21 08:38 | Progress Note (SOAP) ---
Subjective Subjective/Events-last exam patient abdomen is distended. Patient vomited up food she had last night at 5 p.m. this a.m. Patient not feeling great. Acute cholecystitis. Abdomen distention. Alzheimer's. Objective Exam Vital Signs Date Time Temp Pulse Resp B/P Pulse Ox O2 Delivery O2 Flow Rate FiO2 10/21/16 08:09 99.2 85 24 95 Nasal Cannula 2.00 10/21/16 07:08 95 2.00 10/21/16 04:00 99.6 76 20 156/70 98 Nasal Cannula 2.00 10/21/16 00:00 99.7 80 20 174/73 97 Nasal Cannula 2.00 10/20/16 18:49 98 2.00 10/20/16 16:12 92 2.00 10/20/16 16:12 92 10/20/16 16:07 98.1 88 20 139/64 93 Nasal Cannula 2.00 10/20/16 14:03 92 2.00 10/20/16 10:43 90 I & O 10/21/16 07:00 Intake Total 452 ml Output Total 0 ml Balance 452 ml Capillary Refill : Less Than 3 Seconds General Appearance: No Apparent Distress WD/WN HEENT: Normal ENT Inspection Neck: Normal Inspection Respiratory: Chest Non Tender Lungs Clear Normal Breath Sounds No Accessory Muscle Use No Respiratory Distress Cardiovascular: Regular Rate, Rhythm No Murmur Gastrointestinal: distended other (normal bowel sounds, vomited this morning) Results Lab Laboratory Tests 10/21/16 04:20 Laboratory Tests 10/20/16 10:36: Glucometer 167H 10/20/16 15:51: Glucometer 347H 10/20/16 20:40: Glucometer 230H 10/21/16 04:20: Alanine Aminotransferase (ALT/SGPT) 28, Albumin 2.9L, Alkaline Phosphatase 168H , Anion Gap 8, Aspartate Amino Transf (AST/SGOT) 22, BUN/Creatinine Ratio 12, Blood Urea Nitrogen 12, Calcium Level 9.0, Carbon Dioxide Level 25, Chloride Level 103, Creatinine 1.04, Estimat Glomerular Filtration Rate 52, Glucose Level 119H, Hematocrit 34L, Hemoglobin 10.9L, Mean Corpuscular Hemoglobin 30, Mean Corpuscular Hemoglobin Concent 32, Mean Corpuscular Volume 94, Mean Platelet Volume 9.9, Platelet Count 313, Potassium Level 4.1, Red Blood Count 3.59L, Red Cell Distribution Width 12.0, Sodium Level 136, Total Bilirubin 0.6, Total Protein 6.3L, White Blood Count 9.8 10/21/16 05:18: Glucometer 113H Microbiology 10/16/16 MRSA Screen - Final, Complete MRSA not isolated Assessment/Plan Assessment/Plan Assess & Plan/Chief Complaint acute cholecystitis. Abdomen distended. Dementia. . 10/18/16 acute cholecystitis. Abdomen distended. Dementia. Renal insufficiency improving. . 10/19/16. Acute cholecystitis. Dementia. Renal insufficiency. Patient doing good today. Patient hungry. Patient not passing gas . Abdomen no bowel sounds. . 10/20/16. Acute cholecystitis. Renal insufficiency. Dementia. Patient feeling better. Patient not passing any gas. . 10/21/16. Acute cholecystitis. Abdominal distention. Dementia. Vomiting this a.m. food she had last night Diagnosis/Problems: Clinical Quality Measures DVT/VTE Risk/Contraindication: Risk Factor Score Per Nursin RFS Level Per Nursing on Admit: 4+=Very High Contraindications-Pharm: Other *list below* JOSE WOODS DO Oct 21, 2016 08:38
--- NOTE | 2016-10-21 08:53 | Diagnostic Imaging Report ---
INDICATION: Distention, nausea, vomiting. FINDINGS: There is gas within the stomach as well as air within the large bowel loops diffusely. Large bowel not pathologically over dilated. No pathological small bowel distention. No abnormal fecal loading. No evidence of abnormal retained or residual contrast from enema performed October 16. IMPRESSION: There is air throughout the length of the colon with no abnormal stool volume. No suspicious small bowel distention, gaseous distention of the stomach noted. Dictated by: Dictated on workstation # [id number]
--- NOTE | 2016-10-21 09:27 | Progress Note (SOAP) ---
Subjective Subjective/Events-last exam Patient seen with Dr. Campos. Patient reports that she had an episode of vomiting last night and then this morning. Abdominal x-ray was ordered which was unremarkable. Patient also reports minimal RUQ pain. Patient also reports sweating and chills. Otherwise patient reports she is doing ok. Spoke with RN and reported that she vomiting at 0200 this AM and this morning after a popsicle. She reports that she vomited her green beans from last night which were whole and appeared to be unchewed. Review of Systems General: Chills Night Sweats Gastrointestinal: : Abdominal Pain: Nausea: Vomiting Objective Exam Vital Signs Date Time Temp Pulse Resp B/P Pulse Ox O2 Delivery O2 Flow Rate FiO2 10/21/16 08:09 99.2 85 24 95 Nasal Cannula 2.00 10/21/16 07:08 95 2.00 10/21/16 04:00 99.6 76 20 156/70 98 Nasal Cannula 2.00 10/21/16 00:00 99.7 80 20 174/73 97 Nasal Cannula 2.00 10/20/16 18:49 98 2.00 10/20/16 16:12 92 2.00 10/20/16 16:12 92 10/20/16 16:07 98.1 88 20 139/64 93 Nasal Cannula 2.00 10/20/16 14:03 92 2.00 10/20/16 10:43 90 I & O 10/21/16 07:00 Intake Total 452 ml Output Total 0 ml Balance 452 ml Capillary Refill : Less Than 3 Seconds General Appearance: No Apparent Distress WD/WN HEENT: PERRL/EOMI Neck: Supple Respiratory: No Accessory Muscle Use No Respiratory Distress Cardiovascular: Regular Rate, Rhythm No Edema Gastrointestinal: soft distended tenderness (RUQ) other (RUQ drain with minimal SS drainage. ) Extremity: Normal Capillary Refill Normal Inspection Neurologic/Psychiatric: Alert Skin: Normal Color Warm/Dry Other (Abdominal incisions C/D/I.) Results Lab Laboratory Tests 10/20/16 10:36: Glucometer 167H 10/20/16 15:51: Glucometer 347H 10/20/16 20:40: Glucometer 230H 10/21/16 04:20: Alanine Aminotransferase (ALT/SGPT) 28, Albumin 2.9L, Alkaline Phosphatase 168H , Anion Gap 8, Aspartate Amino Transf (AST/SGOT) 22, BUN/Creatinine Ratio 12, Blood Urea Nitrogen 12, Calcium Level 9.0, Carbon Dioxide Level 25, Chloride Level 103, Creatinine 1.04, Estimat Glomerular Filtration Rate 52, Glucose Level 119H, Hematocrit 34L, Hemoglobin 10.9L, Mean Corpuscular Hemoglobin 30, Mean Corpuscular Hemoglobin Concent 32, Mean Corpuscular Volume 94, Mean Platelet Volume 9.9, Platelet Count 313, Potassium Level 4.1, Red Blood Count 3.59L, Red Cell Distribution Width 12.0, Sodium Level 136, Total Bilirubin 0.6, Total Protein 6.3L, White Blood Count 9.8 10/21/16 05:18: Glucometer 113H Microbiology 10/16/16 MRSA Screen - Final, Complete MRSA not isolated Assessment/Plan Assessment/Plan Assess & Plan/Chief Complaint A 71 year old female who is S/P open cholecystectomy. VSS. will change patient to soft diet. Continue pain and nausea medications prn. Social service consult for placement upon discharge. Diagnosis/Problems: Clinical Quality Measures DVT/VTE Risk/Contraindication: Risk Factor Score Per Nursin RFS Level Per Nursing on Admit: 4+=Very High Contraindications-Pharm: Other *list below* ARIELLE BAILEY COMMUNITY SERVICE MANAGER Oct 21, 2016 09:27
[2016-10-21] MEDS: LACTULOSE SYRUP 10GM/15ML (ENULOSE) 30ML UDC PO SCH ×5 (09:59→21:35)
[2016-10-21] MEDS: DOCUSATE SODIUM 100 MG (COLACE) CAP PO SCH ×2 (09:59→21:35)
[2016-10-21] MEDS: PANTOPRAZOLE 40 MG (PROTONIX) TAB PO SCH (09:59)
[2016-10-21] MEDS: POLYETHYLENE GLYCOL 17 GM (MIRALAX) PACK PO SCH ×3 (09:59→21:37)
[2016-10-21 12:00] VITALS: BP 170/76
[2016-10-21] MEDS: CATHETER FLUSH 10 ML SYR IV PRN (13:15)
--- NOTE | 2016-10-21 14:50 | Progress Note-Cardiology ---
Cardiology SOAP Progress Note Subjective: She does not report cp, palp or syncope Objective: I&O/Vital Signs Vital Sign - Last 12Hours 10/21/16 10/21/16 10/21/16 10/21/16 04:00 07:08 08:09 12:00 Temp 99.6 99.2 98.8 Pulse 76 85 73 Resp 20 24 26 B/P 156/70 170/76 Pulse Ox 98 95 95 97 O2 Delivery Nasal Cannula Nasal Cannula Nasal Cannula O2 Flow Rate 2.00 2.00 2.00 2.00 Intake and Output 10/21/16 00:00 Intake Total 692 ml Output Total 440 ml Balance 252 ml Weight (Pounds): 196 Weight (Ounces): 5.0 Weight (Calculated Kilograms): 89.479478 Constitutional: appears stated ageNo apparent distress, well-developed well- nourished Respiratory: No accessory muscle use, No respiratory distress, chest expansion is symmetric chest is bilaterally symmetric other (fair air entry) Cardiovascular: regular rate-rhythmNo JVD, S1 and S2 systolic murmur Gastrointestional: tender distended other (Post-op abdomen; EVELYNE drain in place) Extremities: No clubbing, No cyanosis, No significant edema Neurologic/Psychiatric: alert oriented x 3 grossly intact Skin: No rash, No ulcerations Results/Procedures: Labs Laboratory Tests 10/20/16 15:51: Glucometer 347H 10/20/16 20:40: Glucometer 230H 10/21/16 04:20: Alanine Aminotransferase (ALT/SGPT) 28, Albumin 2.9L, Alkaline Phosphatase 168H , Anion Gap 8, Aspartate Amino Transf (AST/SGOT) 22, BUN/Creatinine Ratio 12, Blood Urea Nitrogen 12, Calcium Level 9.0, Carbon Dioxide Level 25, Chloride Level 103, Creatinine 1.04, Estimat Glomerular Filtration Rate 52, Glucose Level 119H, Hematocrit 34L, Hemoglobin 10.9L, Mean Corpuscular Hemoglobin 30, Mean Corpuscular Hemoglobin Concent 32, Mean Corpuscular Volume 94, Mean Platelet Volume 9.9, Platelet Count 313, Potassium Level 4.1, Red Blood Count 3.59L, Red Cell Distribution Width 12.0, Sodium Level 136, Total Bilirubin 0.6, Total Protein 6.3L, White Blood Count 9.8 10/21/16 05:18: Glucometer 113H 10/21/16 10:35: Glucometer 134H Microbiology 10/16/16 MRSA Screen - Final, Complete MRSA not isolated Laboratory Tests 10/20/16 05:35 10/21/16 04:20 A/P: Assessment: S/P open cholecystectomy per Dr. Amaya on 10-17-16 Post-op blood loss anemia Pulmonary edema reported on CXR at admission; normal BNP, no clinical CHF Reported h/o Rheumatic fever at age 8 Normal global left ventricular systolic function with an ejection fraction of approximately 60 to 65%. Aortic valve sclerosis and mitral annular calcification with moderate aortic and mitral stenoses. Trivial to mild mitral and tricuspid regurgitation. Pulmonary artery systolic pressure is estimated to be within normal limits. Per echocardiogram of 10-17-16 HLP HTN DM Renal insufficiency - likely chronic in some part d/t diabetic nephropathy Dementia Right lower rib pain following a non-syncopal fall a week ago Previous h/o tobaccoism - states quit in 1997 Plan: Continue clinical monitoring Continue current management Monitor labs SAGE ZUNIGA MD FACP FAC CCDS Oct 21, 2016 14:50
[2016-10-21 16:00] VITALS: BP 172/78
[2016-10-21 20:00] VITALS: BP 148/65
[2016-10-22] VITALS: BP 180/77
[2016-10-22 04:09] VITALS: BP 178/81
[2016-10-22 04:56] LABS: MEAN PLATELET VOLUME 9.5 FL (7.4-10.4); RED BLOOD COUNT 3.63 10^6/uL (4.35-5.85); RED CELL DISTRIBUTION WIDTH 12.3 % (10.0-14.5); WHITE BLOOD COUNT 8.8 10^3/uL (4.3-11.0)
[2016-10-22 05:16] LABS: ALBUMIN 2.9 G/DL (3.2-4.5); BILIRUBIN,TOTAL 0.4 MG/DL (0.1-1.0); CALCIUM 8.8 MG/DL (8.5-10.1); CREATININE SERUM 0.94 MG/DL (0.60-1.30); POTASSIUM 3.7 MMOL/L (3.6-5.0); TOTAL PROTEIN 6.1 G/DL (6.4-8.2)
[2016-10-22] MEDS: inSUlin (REGULAR) HUMAN 1 UNIT/0.01 ML (CHARGE PER UNIT) SC SCH ×2 (06:00→11:27)
[2016-10-22] MEDS: RT-ALBUTEROL/IPRATROPIUM 3 ML (DUONEB) VIAL INH SCH ×2 (07:45→11:05)
[2016-10-22] MEDS ORDERED: PERPHENAZINE 2 MG (TRILAFON) TAB PO SCH ×2 (08:00→21:00)
--- NOTE | 2016-10-22 08:01 | Progress Note (SOAP) ---
Subjective Subjective/Events-last exam patient voices no complaints today. Abdomen still distended. Patient having diarrhea today. 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 Objective Exam Vital Signs Date Time Temp Pulse Resp B/P Pulse Ox O2 Delivery O2 Flow Rate FiO2 10/22/16 07:45 96 2.00 10/22/16 04:09 98.9 81 20 178/81 98 Nasal Cannula 2.00 10/22/16 00:00 97.9 68 20 180/77 98 Nasal Cannula 2.00 10/21/16 20:30 96 Nasal Cannula 2.00 10/21/16 20:01 96 2.00 10/21/16 20:00 97.3 70 22 148/65 99 Nasal Cannula 2.00 10/21/16 16:00 98.3 81 22 172/78 95 Nasal Cannula 2.00 10/21/16 15:05 97 2.00 10/21/16 12:00 98.8 73 26 170/76 97 Nasal Cannula 2.00 10/21/16 08:09 99.2 85 24 95 Nasal Cannula 2.00 I & O 10/22/16 07:00 Intake Total 1660 ml Output Total 20 ml Balance 1640 ml Capillary Refill : Less Than 3 Seconds General Appearance: No Apparent Distress HEENT: Normal ENT Inspection Neck: Full Range of Motion Respiratory: Chest Non Tender Lungs Clear Normal Breath Sounds No Accessory Muscle Use No Respiratory Distress Cardiovascular: Regular Rate, Rhythm No Murmur Gastrointestinal: distended Results Lab Laboratory Tests 10/21/16 10:35: Glucometer 134H 10/21/16 16:02: Glucometer 208H 10/21/16 21:14: Glucometer 164H 10/22/16 04:30: Alanine Aminotransferase (ALT/SGPT) 26, Albumin 2.9L, Alkaline Phosphatase 166H , Anion Gap 9, Aspartate Amino Transf (AST/SGOT) 21, BUN/Creatinine Ratio 16, Blood Urea Nitrogen 15, Calcium Level 8.8, Carbon Dioxide Level 27, Chloride Level 100, Creatinine 0.94, Estimat Glomerular Filtration Rate 58, Glucose Level 157H, Hematocrit 34L, Hemoglobin 10.9L, Mean Corpuscular Hemoglobin 30, Mean Corpuscular Hemoglobin Concent 32, Mean Corpuscular Volume 93, Mean Platelet Volume 9.5, Platelet Count 352, Potassium Level 3.7, Red Blood Count 3.63L, Red Cell Distribution Width 12.3, Sodium Level 136, Total Bilirubin 0.4, Total Protein 6.1L, White Blood Count 8.8 10/22/16 05:50: Glucometer 142H Microbiology 10/16/16 MRSA Screen - Final, Complete MRSA not isolated Assessment/Plan Assessment/Plan Assess & Plan/Chief Complaint acute cholecystitis. Abdomen distended. Dementia. . 10/18/16 acute cholecystitis. Abdomen distended. Dementia. Renal insufficiency improving. . 10/19/16. Acute cholecystitis. Dementia. Renal insufficiency. Patient doing good today. Patient hungry. Patient not passing gas . Abdomen no bowel sounds. . 10/20/16. Acute cholecystitis. Renal insufficiency. Dementia. Patient feeling better. Patient not passing any gas. . 10/21/16. Acute cholecystitis. Abdominal distention. Dementia. Vomiting this a.m. food she had last night. . 10/22/16. Diarrhea this a.m. Abdomen still distended. Acute cholecystitis. Hypertension. Dementia Diagnosis/Problems: Clinical Quality Measures DVT/VTE Risk/Contraindication: Risk Factor Score Per Nursin RFS Level Per Nursing on Admit: 4+=Very High Contraindications-Pharm: Other *list below* JOSE WOODS DO Oct 22, 2016 08:01
[2016-10-22 08:26] VITALS: BP 187/75
[2016-10-22] MEDS: LACTULOSE SYRUP 10GM/15ML (ENULOSE) 30ML UDC PO SCH ×2 (09:00→13:00)
[2016-10-22] MEDS ORDERED: DULoxetine 30 MG (CYMBALTA) CAP PO SCH (09:00)
[2016-10-22] MEDS: POLYETHYLENE GLYCOL 17 GM (MIRALAX) PACK PO SCH (09:00)
[2016-10-22] MEDS ORDERED: LORazepam 0.5 MG (ATIVAN) TABLET PO SCH (09:00)
[2016-10-22] MEDS ORDERED: risperiDONE 2 MG (RisperDAL) TAB PO SCH (09:00)
[2016-10-22] MEDS: DOCUSATE SODIUM 100 MG (COLACE) CAP PO SCH (09:00)
--- NOTE | 2016-10-22 09:00 | Progress Note-Cardiology ---
Cardiology SOAP Progress Note Subjective: She does not report chest pain, palpitations, or syncope Objective: I&O/Vital Signs Vital Sign - Last 12Hours 10/22/16 10/22/16 10/22/16 10/22/16 00:00 04:09 07:45 08:26 Temp 97.9 98.9 98.0 Pulse 68 81 68 Resp 20 20 18 B/P 180/77 178/81 187/75 Pulse Ox 98 98 96 98 O2 Delivery Nasal Cannula Nasal Cannula Nasal Cannula O2 Flow Rate 2.00 2.00 2.00 2.00 Intake and Output 10/22/16 00:00 Intake Total 1460 ml Output Total 0 ml Balance 1460 ml Weight (Pounds): 196 Weight (Ounces): 5.0 Weight (Calculated Kilograms): 89.256264 Constitutional: appears stated ageNo apparent distress, well-developed well- nourished Respiratory: No accessory muscle use, No respiratory distress, chest expansion is symmetric chest is bilaterally symmetric other (fair air entry) Cardiovascular: regular rate-rhythmNo JVD, S1 and S2 systolic murmur Gastrointestional: tender distended other (Post-op abdomen; EVELYNE drain in place) Extremities: other (mild R leg pitting edema)No clubbing, No cyanosis Neurologic/Psychiatric: alert oriented x 3 grossly intact Skin: No rash, No ulcerations Results/Procedures: Labs Laboratory Tests 10/21/16 10:35: Glucometer 134H 10/21/16 16:02: Glucometer 208H 10/21/16 21:14: Glucometer 164H 10/22/16 04:30: Alanine Aminotransferase (ALT/SGPT) 26, Albumin 2.9L, Alkaline Phosphatase 166H , Anion Gap 9, Aspartate Amino Transf (AST/SGOT) 21, BUN/Creatinine Ratio 16, Blood Urea Nitrogen 15, Calcium Level 8.8, Carbon Dioxide Level 27, Chloride Level 100, Creatinine 0.94, Estimat Glomerular Filtration Rate 58, Glucose Level 157H, Hematocrit 34L, Hemoglobin 10.9L, Mean Corpuscular Hemoglobin 30, Mean Corpuscular Hemoglobin Concent 32, Mean Corpuscular Volume 93, Mean Platelet Volume 9.5, Platelet Count 352, Potassium Level 3.7, Red Blood Count 3.63L, Red Cell Distribution Width 12.3, Sodium Level 136, Total Bilirubin 0.4, Total Protein 6.1L, White Blood Count 8.8 10/22/16 05:50: Glucometer 142H Microbiology 10/16/16 MRSA Screen - Final, Complete MRSA not isolated Laboratory Tests 10/21/16 04:20 10/22/16 04:30 A/P: Assessment: Unilateral mild R leg edema of undetermined etiology Hypertension S/P open cholecystectomy per Dr. Amaya on 10-17-16 Post-op blood loss anemia Pulmonary edema reported on CXR at admission; normal BNP, no clinical CHF Reported h/o Rheumatic fever at age 8 Normal global left ventricular systolic function with an ejection fraction of approximately 60 to 65%. Aortic valve sclerosis and mitral annular calcification with moderate aortic and mitral stenoses. Trivial to mild mitral and tricuspid regurgitation. Pulmonary artery systolic pressure is estimated to be within normal limits. Per echocardiogram of 10-17-16 HLP HTN DM Renal insufficiency - likely chronic in some part d/t diabetic nephropathy Dementia Right lower rib pain following a non-syncopal fall a week ago Previous h/o tobaccoism - states quit in 1997 Plan: Multiple new issues addressed today (see below) Unilateral leg edema is a new finding Leg venous duplex Change DVT prophylaxis to enoxaparin BP continues to rise (on average). Add Toprol XL for bp control Monitor labs SAGE ZUNIGA MD FACP FAC CCDS Oct 22, 2016 09:00
[2016-10-22] MEDS ORDERED: ENOXAPARIN 40 MG/0.4 ML (LOVENOX) SYR SC SCH (09:15)
--- NOTE | 2016-10-22 09:19 | Progress Note ---
Subjective Subjective/Events-last exam Patient is alert but confused. Even regular respirations. No signs of distress or discomfort is noted. Abdomen is still distended. Abdomen is soft to palpation. Patient denies any pain with palpation over the abdomen. Minimal drainage is noted to HERI drain. Serosanguineous in nature. Had some diarrhea over the weekend. Abdominal xray was normal. Objective Exam Vital Signs Date Time Temp Pulse Resp B/P Pulse Ox O2 Delivery O2 Flow Rate FiO2 10/22/16 08:26 98.0 68 18 187/75 98 Nasal Cannula 2.00 10/22/16 07:45 96 2.00 10/22/16 04:09 98.9 81 20 178/81 98 Nasal Cannula 2.00 10/22/16 00:00 97.9 68 20 180/77 98 Nasal Cannula 2.00 10/21/16 20:30 96 Nasal Cannula 2.00 10/21/16 20:01 96 2.00 10/21/16 20:00 97.3 70 22 148/65 99 Nasal Cannula 2.00 10/21/16 16:00 98.3 81 22 172/78 95 Nasal Cannula 2.00 10/21/16 15:05 97 2.00 10/21/16 12:00 98.8 73 26 170/76 97 Nasal Cannula 2.00 I & O 10/22/16 06:59 Intake Total 1660 ml Output Total 20 ml Balance 1640 ml Capillary Refill : Less Than 3 Seconds General Appearance: No Apparent Distress WD/WN HEENT: PERRL/EOMI Neck: Supple Respiratory: No Accessory Muscle Use No Respiratory Distress Cardiovascular: Regular Rate, Rhythm Gastrointestinal: soft distended other (RUQ drain with minimal SS drainage. Incisions nan without drainage, or warmth. ) Extremity: Normal Capillary Refill Normal Inspection Pedal Edema (some swelling noted to lower extremities. ) Neurologic/Psychiatric: Alert Skin: Normal Color Warm/Dry Other (Abdominal incisions C/D/I.) Results Lab Laboratory Tests Test 10/20/16 10:36 10/20/16 15:51 10/20/16 20:40 10/21/16 04:20 Range/Units Glucometer 167 H 347 H 230 H 70-110 MG/DL Alanine Aminotransferase (ALT/SGPT) 28 0-55 U/L Albumin 2.9 L 3.2-4.5 G/DL Alkaline Phosphatase 168 H 40-136 U/L Anion Gap 8 5-14 MMOL/L Aspartate Amino Transf (AST/SGOT) 22 5-34 U/L BUN/Creatinine Ratio 12 Blood Urea Nitrogen 12 7-18 MG/DL Calcium Level 9.0 8.5-10.1 MG/DL Carbon Dioxide Level 25 21-32 MMOL/L Chloride Level 103 98-107 MMOL/L Creatinine 1.04 0.60-1.30 MG/DL Estimat Glomerular Filtration Rate 52 Glucose Level 119 H 70-105 MG/DL Hematocrit 34 L 35-52 % Hemoglobin 10.9 L 11.5-16.0 G/DL Mean Corpuscular Hemoglobin 30 25-34 PG Mean Corpuscular Hemoglobin Concent 32 32-36 G/DL Mean Corpuscular Volume 94 80-99 FL Mean Platelet Volume 9.9 7.4-10.4 FL Platelet Count 313 130-400 10^3/uL Potassium Level 4.1 3.6-5.0 MMOL/L Red Blood Count 3.59 L 4.35-5.85 10^6/uL Red Cell Distribution Width 12.0 10.0-14.5 % Sodium Level 136 135-145 MMOL/L Total Bilirubin 0.6 0.1-1.0 MG/DL Total Protein 6.3 L 6.4-8.2 G/DL White Blood Count 9.8 4.3-11.0 10^3/uL Test 10/21/16 05:18 10/21/16 10:35 10/21/16 16:02 10/21/16 21:14 Range/Units Glucometer 113 H 134 H 208 H 164 H 70-110 MG/DL Test 10/22/16 04:30 10/22/16 05:50 Range/Units Alanine Aminotransferase (ALT/SGPT) 26 0-55 U/L Albumin 2.9 L 3.2-4.5 G/DL Alkaline Phosphatase 166 H 40-136 U/L Anion Gap 9 5-14 MMOL/L Aspartate Amino Transf (AST/SGOT) 21 5-34 U/L BUN/Creatinine Ratio 16 Blood Urea Nitrogen 15 7-18 MG/DL Calcium Level 8.8 8.5-10.1 MG/DL Carbon Dioxide Level 27 21-32 MMOL/L Chloride Level 100 98-107 MMOL/L Creatinine 0.94 0.60-1.30 MG/DL Estimat Glomerular Filtration Rate 58 Glucose Level 157 H 70-105 MG/DL Hematocrit 34 L 35-52 % Hemoglobin 10.9 L 11.5-16.0 G/DL Mean Corpuscular Hemoglobin 30 25-34 PG Mean Corpuscular Hemoglobin Concent 32 32-36 G/DL Mean Corpuscular Volume 93 80-99 FL Mean Platelet Volume 9.5 7.4-10.4 FL Platelet Count 352 130-400 10^3/uL Potassium Level 3.7 3.6-5.0 MMOL/L Red Blood Count 3.63 L 4.35-5.85 10^6/uL Red Cell Distribution Width 12.3 10.0-14.5 % Sodium Level 136 135-145 MMOL/L Total Bilirubin 0.4 0.1-1.0 MG/DL Total Protein 6.1 L 6.4-8.2 G/DL White Blood Count 8.8 4.3-11.0 10^3/uL Glucometer 142 H 70-110 MG/DL Laboratory Tests 10/21/16 10:35: Glucometer 134H 10/21/16 16:02: Glucometer 208H 10/21/16 21:14: Glucometer 164H 10/22/16 04:30: Alanine Aminotransferase (ALT/SGPT) 26, Albumin 2.9L, Alkaline Phosphatase 166H , Anion Gap 9, Aspartate Amino Transf (AST/SGOT) 21, BUN/Creatinine Ratio 16, Blood Urea Nitrogen 15, Calcium Level 8.8, Carbon Dioxide Level 27, Chloride Level 100, Creatinine 0.94, Estimat Glomerular Filtration Rate 58, Glucose Level 157H, Hematocrit 34L, Hemoglobin 10.9L, Mean Corpuscular Hemoglobin 30, Mean Corpuscular Hemoglobin Concent 32, Mean Corpuscular Volume 93, Mean Platelet Volume 9.5, Platelet Count 352, Potassium Level 3.7, Red Blood Count 3.63L, Red Cell Distribution Width 12.3, Sodium Level 136, Total Bilirubin 0.4, Total Protein 6.1L, White Blood Count 8.8 10/22/16 05:50: Glucometer 142H Microbiology 10/16/16 MRSA Screen - Final, Complete MRSA not isolated Assessment/Plan Assessment/Plan Assessment/Plan status post open cholecystectomy. Dementia We will continue to monitor patient. HERI drain still noted with serosanguineous fluid. Soft diet. No N/V this am. Possible discharge today or tomorrow. Monique- Patient sitting in chair. No complaints of abdominal pain. Tolerating diet. No nausea or emesis. Heri drain serous drainage. General no acute distress abdomen less distended, incisions clean dry intact ext nontender alert not oriented s/p open rachana, dementia tolerating diet, okay to dc from surgical standpoint if okay with cardiology and medicine. Clinical Quality Measures DVT/VTE Risk/Contraindication: Risk Factor Score Per Nursin RFS Level Per Nursing on Admit: 4+=Very High Contraindications-Pharm: Other *list below* NIVIA SOLORZANO APRN Oct 22, 2016 9:19 am AURORA LEE DO Oct 22, 2016 1:15 pm Vomiting this a.m. food she had last night. . 10/22/16. Diarrhea this a.m. Abdomen still distended. Acute cholecystitis. Hypertension. Dementia Clinical Quality Measures DVT/VTE Risk/Contraindication: Risk Factor Score Per Nursin RFS Level Per Nursing on Admit: 4+=Very High Contraindications-Pharm: Other *list below* NIVIA SOLORZANO APRN Oct 22, 2016 09:19
[2016-10-22] MEDS: TRIHEXYPHENIDYL 2 MG (ARTANE) TAB PO SCH ×2 (09:55→13:50)
[2016-10-22] MEDS: PANTOPRAZOLE 40 MG (PROTONIX) TAB PO SCH (09:56)
--- NOTE | 2016-10-22 10:20 | Physical Therapy Daily Note ---
PT Daily Note-Current Subjective Patient is sitting in recliner and agrees to therapy. Pain Numeric Pain Scale: 5-Moderate Pain Location: Lower Location Body Site: Abdomen Comment: FLACC Mental Status Patient Orientation: Confused Transfers Functional [place] Measure 0=Not Assessed/NA 4=Minimal Assistance 1=Total Assistance 5=Supervision or Setup 2=Maximal Assistance 6=Modified [place] 3=Moderate Assistance 7=Complete IndependenceIRFPAI Quality Coding Scale 6 Independent with activity with or without an assistive device 5 Patient requires set up or clean up by helper. Patient completes activity by themselves 4 Supervision or touching assist (CGA). [place] provide cues , steadying assist 3 The helper provides less than half the effort to complete the activity 2 The helper provides more than half the effort to complete the activity 1 Dependent. The helper does all the effort to complete an activity 7 Patient refused to complete or attempt activity 9 The patient did not perform the activity before the current illness or injury 88 Not attempted due to Medical conditions or safety concerns Transfers (B, C, W/C) (FIM): 3 Scootin Sit to/from Stand: 3 sit to stand x 3 sets to FWW with patient ceasing this activity and remaining in recliner Exercises Supine Ex: Ankle pumps, Heel Slides Supine Reps: 20 (AAROM in recliner with bilateral LE elevated) Seated Therapy Exercises: Ankle pumps, Long arc quads Seated Reps: 20 (AAROM) Assessment Patient is very tearful during treatment and referred to this PT as "mama". RN present after PT treatment. PT Mcfp Goals Lead Mason Tender Goals PT Mcfp Goals Time Frame: Oct 25, 2016 Transfers (B,C,W/C) (FIM): 4 PT Plan Treatment/Plan Treatment Plan: Continue Plan of Care Treatment Plan: Bed Mobility, Education, Functional Activity Michelle, Functional Strength, Safety, Therapeutic Exercise, Transfers Treatment Duration: Oct 25, 2016 Visits Per Week: 5-6 Time/GCodes Time In: 937 Time Out: 1000 Total Billed Treatment Time: 23 Total Billed Treatment 1 visit FA 10 min EX 13 min ANTON KOWALSKI PT Oct 22, 2016 10:20
--- NOTE | 2016-10-22 10:48 | Diagnostic Imaging Report ---
EXAMINATION: Right lower extremity duplex venous ultrasound. TECHNIQUE: DVT protocol. Multiple sonographic images with color Doppler and waveform interrogation were performed of the right lower extremity veins with compression and augmentation maneuvers. INDICATION: Right leg swelling. FINDINGS: The right lower extremity veins from the groin to below the knee veins were examined with normal color-flow, compressibility and normal waveform demonstrated. The great saphenous vein is patent. IMPRESSION: No evidence of DVT in the right lower extremity. Dictated by: Dictated on workstation # [id number]
[2016-10-22 12:00] VITALS: BP 161/62
[2016-10-22] MEDS ORDERED: METO-270 PO (13:04)
[2016-10-22 15:12] VITALS: BP 161/62
[2016-10-22] MEDS ORDERED: ATORVASTATIN 40 MG (LIPITOR) TABLET PO SCH (21:00)
--- NOTE | 2016-10-29 10:25 | Discharge Summary ---
Diagnosis/Chief Complaint Date of Admission Oct 16, 2016 at 13:08 Date of Discharge Oct 22, 2016 at 15:00 Discharge Date: Admission Diagnosis Admission Diagnosis acute cholecystitis. Diabetes. Hyperlipidemia. Dementia. Congestive heart failure Discharge Diagnosis status post open cholecystectomy. Dementia Reason Hospital Visit This is a 71-year-old female who came to the ER from Located within [facility]. The nursing staff relayed to the ER staff that they noticed that the patient had a distended abdomen this morning. No nausea or vomiting. No fever. Patient is complaining of soreness to her right upper quadrant. She continues to point to her right side stating that her ribs are sore. She has history of significant dementia. The [facility] staff also relayed to the ER staff that the patient had a bowel movement this morning. Discharge Summary Procedures: NAME:CARRIE ALEAXNDER [facility] REC#:[id number] :1945 LOCATION:4TH ADMIT DATE:10/16/16 PROCEDURE PHYSICIAN: AURORA LEE DATE OF PROCEDURE: 10/17/2016 PREOPERATIVE DIAGNOSIS: Acute cholecystitis. POSTOPERATIVE DIAGNOSIS: Hydrops gallbladder cholecystitis. PROCEDURE: Laparoscopic converted to open cholecystectomy. SURGEON: Monique. DEFECT REPAIRER GLASSWARE: Dr. Jc, who assist in retraction, dissection, and closure. ANESTHESIA: General ESTIMATED BLOOD LOSS: 200 mL. COMPLICATIONS: None. INDICATIONS: The patient is a 71-year-old female who has right upper quadrant pain and studies consistent with acute cholecystitis. The patient was admitted placed on antibiotics. She had cardiac clearance. Consent was obtained from her power of estate attorney to proceed with procedure. PROCEDURE: The patient was taken to the operating suite. She was prepped and draped in the sterile fashion. A surgical pause was performed. Just superior to the umbilicus a 12 mm incision was made. Cautery was used to dissect down to the fascia where it was scored, grasped, elevated and the abdomen was then entered. An 0 Vicryl suture was placed in a [id number] fashion and the Tomer trocar was then placed. The scope was inserted in the abdomen. There was a huge amount of omental fat that was up above the liver. There was also multiple adhesions in the right upper quadrant. A 5 mm trocar was placed in the subxiphoid region and two 5-mm trocars were placed in the right upper quadrant. Endo Triny with cautery was used to dissect down the adhesions in the right upper quadrant which are adhesions of omental fat adhered to the abdominal wall. The omental fat that was caked above the liver was then slowly brought down. This was a large phlegmon surrounding the gallbladder and cautery dissection was used to assist in removing this phlegmon mobilizing the gallbladder. The gallbladder itself was extremely distended and erythematous and edematous. The gallbladder was continued to be dissected away from the phlegmon with both blunt and hydrodissection. Once it continued be freed, the gallbladder was then decompressed, clear fluid erupted from the gallbladder which was suctioned. This was then followed by purulent material from the gallbladder as well. Some stones were brought out as well. Continued dissection was made but due to the multiple adhesions and more intrahepatic gallbladder, another 5 mm millimeters trocar was placed in the right upper quadrant to assist in retraction and dissection. At this point due to the phlegmon, it was very difficult to get to the neck of the gallbladder; therefore, we started dissecting from the fundus down towards the neck of the gallbladder. Cautery is being used along with irrigation and suction. The gallbladder was continued to be mobilized, however, due to the inflammation and phlegmon it was very difficult to visualize the cystic duct and cystic arteries; therefore, at this point, we decided to convert to an open procedure. A subcostal incision on the right was then made dissecting down through the abdominal wall until the abdomen was entered. We continued to mobilize the gallbladder towards the neck which then the left was identified. The cystic artery was then able to be dissected out. Clips were placed on proximal and distal portion. This was then transected. Continue blunt dissection was made. The cystic duct was then identified. This was dissected around. In doing so, the gallbladder did get torn away from the cystic duct. Therefore the cystic duct was able to be grasped and an Endo loop PDS was placed over the cystic duct and then tightened. There was some slight ooze from the liver, which pressure was held and achieved hemostasis along with placing Surgicel within the gallbladder fossa. Copious amounts of irrigation were used to irrigate the area as well. A 19 Pablo drain was placed in the gallbladder fossa and brought out through a 5 mm trocar site in the right upper quadrant. The peritoneum and posterior fascia was then closed using 0 Vicryl in a running fashion. The anterior fascia was then closed using 1-0 loop PDS in a running fashion. The area was irrigated and the skin was then closed using nan. The drain was secured with a silk suture. The other incisions were irrigated and then closed with nan. The abdomen was then washed and dried and sterile bandages were applied. The patient tolerated procedure well. She was taken to recovery room in stable condition. The patient will be continued on antibiotics. We will keep her n.p.o. at this time likely start liquids in the morning. Job ID: [id number] Dictated Date: 10/17/2016 17:07:46 Rn Progressive Care Date: 10/18/2016 13:25:40 / [facility] [id number] <Dictated by AURORA LEE DO> Discharge Physical Examination Allergies: Uncoded Allergies: NSAIDS (Allergy, Unknown, 10/16/16) Hospital Course This is a 71-year-old female who came to the ER from Located within [facility]. The nursing staff relayed to the ER staff that they noticed that the patient had a distended abdomen this morning. No nausea or vomiting. No fever. Patient is complaining of soreness to her right upper quadrant. She continues to point to her right side stating that her ribs are sore. She has history of significant dementia, Chronic constipation, Diabetes ,Hyperlipidemia, Dementia, Congestive heart failure. The [facility] staff also relayed to the ER staff that the patient had a bowel movement this morning. The CT abdomen/pelvis exam performed earlier raised a question of acute cholecystitis. Gall Bladder ultrasound shows that there is cholelithiasis, slight thickening of the gallbladder wall and a trace amount of pericholecystic fluid. The combination of these findings is certainly suspicious for acute cholecystitis. The patient was admitted and placed on antibiotics. She had cardiac clearance. Consent was obtained from her power of estate attorney to proceed with procedure. The patient had a Laparoscopic procedure that later was open. After procedure, the patient was continued on Antibiotics. The patient came into the hospital on the September and surgery was done on the . Patient was released back to the [facility] after consult with cardiology for Increased HTN. She was also seen by her PCP, Dr. Zaldivar. Patient continued to recover on the 4th flood. Prior to dismissal, no RUQ pain, No Nausea or vomiting noted. Patient also had some diarrhea, related to stool regimen. Patient has a history of constipation. Her abdomen was still distended but not like she was upon initial presentation. Abdominal xrays was performed on the September. There was air throughout the length of the colon with no abnormal stool volume. No suspicious small bowel distention, gaseous distention of the stomach noted Abdomen was soft to palpation. Venous Doppler was performed due to right leg swelling; no evidence of DVT was noted with Exam. Patient was dismissed on the to [facility]. To follow up with surgeon, Mining Plant Operator and PCP in one to two weeks. Discharge Instructions to patient/family Please see electonic discharge instructions given to patient. Discharge Medications Reviewed and agree with Discharge Medication list on patient's Discharge Instruction sheet Clinical Quality Measures DVT/VTE Risk/Contraindication: Risk Factor Score Per Nursin RFS Level Per Nursing on Admit: 4+=Very High Contraindications-Pharm: Other *list below* NIVIA SOLORZANO APRN Oct 29, 2016 10:25
== END 2016-10-22 15:00 | DRG 415 ==
LOC: ER 11:04 → 4TH 13:08
PROVIDERS: ADMIT Family Medicine; ATTEND Family Medicine
PROC: 0FJ44ZZ Inspection of Gallbladder, Percutaneous Endoscopic Approach (ICD-10-PCS; 2016-10-17)
PROC: 0FT40ZZ Resection of Gallbladder, Open Approach (ICD-10-PCS; principal; 2016-10-17 13:15)
DX: K80.00 Calculus of gallbladder with acute cholecystitis without obstruction (principal); J81.1 Chronic pulmonary edema; K82.1 Hydrops of gallbladder; D62 Acute posthemorrhagic anemia; E11.21 Type 2 diabetes mellitus with diabetic nephropathy; I10 Essential (primary) hypertension; F03.90 Unspecified dementia, unspecified severity, without behavioral disturbance, psychotic disturbance, mood disturbance, and anxiety; K21.9 Gastro-esophageal reflux disease without esophagitis; K59.09 Other constipation; F41.9 Anxiety disorder, unspecified; F32.9 Major depressive disorder, single episode, unspecified; E78.5 Hyperlipidemia, unspecified; R07.81 Pleurodynia; Z91.81 History of falling; Z87.891 Personal history of nicotine dependence; R26.89 Other abnormalities of gait and mobility; N28.9 Disorder of kidney and ureter, unspecified; I08.3 Combined rheumatic disorders of mitral, aortic and tricuspid valves; R60.0 Localized edema
CPT/HCPCS: 36415; 71010; 74000; 74176; 74270; 76705; 80053; 81000; 82962; 83690; 83735; 83880; 84100; 85025; 85027; 87081; 93005; 93306; 94640; 94664; 94760; 96372; 96374

== ENCOUNTER → 2016-12-16 | Outpatient (CLI) | payer MEDICARE, MEDICAID ==
[~2016-12-16] MED LIST: ACET-2267 PO; AMOX-358 PO; ATOR40TA PO; CARB15DR87 EACH EAR; DOCU-143 PO; DULO30CA3 PO; HYDR-3062 PO; INSU100I14 SQ; INSU100I32 SQ; LACT20SO2 PO; LOPE2TAB34 PO; LORA-404 PO; MAGN400O7 PO; METO-270 PO; MIRT30TA PO; NYST1POW22 TOP; PANT40TA2 PO; PERP4TAB10 PO; PERP8TAB6 PO; POLY17PO6 PO; RISP2TAB83 PO; SITA50TA PO; TRIH2TAB2 PO
[2016-12-16 10:58] LABS: BILIRUBIN,URINE NEGATIVE (NEGATIVE); KETONES,URINE NEGATIVE (NEGATIVE); LEUKOCYTE ESTERASE ,URINE 1+ (NEGATIVE); NITRITE,URINE NEGATIVE (NEGATIVE); PH,URINE 6 (5-9); PROTEIN,URINE 3+ (NEGATIVE); UROBILINOGEN,URINE NORMAL (NORMAL)
== END ==
PROVIDERS: ATTEND Family Medicine
DX: N39.0 Urinary tract infection, site not specified (principal)
CPT/HCPCS: 81000; 87088

== ENCOUNTER → 2017-01-02 | Outpatient (CLI) | payer MEDICARE, MEDICAID ==
[2017-01-02 18:14] LABS: BILIRUBIN,URINE NEGATIVE (NEGATIVE); KETONES,URINE NEGATIVE (NEGATIVE); LEUKOCYTE ESTERASE ,URINE NEGATIVE (NEGATIVE); NITRITE,URINE NEGATIVE (NEGATIVE); PH,URINE 6 (5-9); PROTEIN,URINE 3+ (NEGATIVE); UROBILINOGEN,URINE NORMAL (NORMAL)
== END ==
PROVIDERS: ATTEND Family Medicine
DX: N39.0 Urinary tract infection, site not specified (principal)
CPT/HCPCS: 81000

== ENCOUNTER → 2017-01-30 | Outpatient (CLI) | payer MEDICARE, MEDICAID ==
[2017-01-30 23:26] LABS: BILIRUBIN,URINE NEGATIVE (NEGATIVE); KETONES,URINE NEGATIVE (NEGATIVE); LEUKOCYTE ESTERASE ,URINE NEGATIVE (NEGATIVE); NITRITE,URINE NEGATIVE (NEGATIVE); PH,URINE 6 (5-9); PROTEIN,URINE 3+ (NEGATIVE); UROBILINOGEN,URINE NORMAL (NORMAL)
[2017-01-30 23:35] LABS: WBC,URINE RARE /HPF
== END ==
LOC: LABNPT 23:16
PROVIDERS: ATTEND Family Medicine
DX: Z87.440 Personal history of urinary (tract) infections (principal); Z09 Encounter for follow-up examination after completed treatment for conditions other than malignant neoplasm
CPT/HCPCS: 81000

== ENCOUNTER → 2017-04-03 | Outpatient (CLI) | payer MEDICARE, MEDICAID ==
[2017-04-03 21:58] LABS: BILIRUBIN,URINE NEGATIVE (NEGATIVE); KETONES,URINE NEGATIVE (NEGATIVE); LEUKOCYTE ESTERASE ,URINE 1+ (NEGATIVE); NITRITE,URINE NEGATIVE (NEGATIVE); PH,URINE 5 (5-9); PROTEIN,URINE 3+ (NEGATIVE); UROBILINOGEN,URINE 1 MG/DL (NORMAL)
[2017-04-03 22:11] LABS: WBC,URINE 25-50 /HPF
== END ==
PROVIDERS: ATTEND Family Medicine
DX: N39.0 Urinary tract infection, site not specified (principal)
CPT/HCPCS: 81000; 87077; 87088; 87186

== ENCOUNTER → 2017-10-16 | Outpatient (CLI) | payer MEDICARE, MEDICAID ==
[~2017-10-16] MED LIST changes: -METO-270 PO; +METO-387 PO
--- NOTE | 2017-10-21 08:13 | Physician Query-Final Dx ---
CORY SCHULTE 10/21/17 0813: Clinic Account Progress/Dx Physician Query: Please give a diagnosis for the sputum culture thank you Date of Service Oct 16, 2017 at 21:10 JOSE WOODS DO 10/21/17 1410: Clinic Account Progress/Dx DIAGNOSIS: Diagnosis Respiratory infection CORY SCHULTE Oct 21, 2017 08:13 JOSE WOODS DO Oct 21, 2017 14:10
== END ==
LOC: LABNPT 21:10
PROVIDERS: ATTEND Family Medicine
DX: J98.8 Other specified respiratory disorders (principal)
CPT/HCPCS: 87070; 87205

== ENCOUNTER → 2018-08-28 | Outpatient (CLI) | payer MEDICARE, MEDICAID ==
--- NOTE | 2018-08-28 12:06 | Diagnostic Imaging Report ---
INDICATION: Cough. PA view of the chest is obtained. Since 10/16/2016, there is continued mild cardiomegaly. Pulmonary vascularity is at the upper limits of normal without evidence of overt edema or consolidation. No pneumothorax or significant pleural fluid is identified. There is evidence of old fracture in the proximal left humerus. IMPRESSION: Borderline cardiomegaly and mild pulmonary venous congestion without other acute abnormality detected. Dictated by: Dictated on workstation # [id number]
== END ==
LOC: RAD 10:02
PROVIDERS: ATTEND Family Medicine
DX: I87.8 Other specified disorders of veins (principal); I51.7 Cardiomegaly; R05 Cough
CPT/HCPCS: 71045

== ENCOUNTER 2018-10-15 11:10 | Emergency (ER) | payer MEDICARE, MEDICAID ==
[~2018-10-15] VITALS: Ht 157.5 cm; Wt 89.0 kg
--- NOTE | 2018-10-15 11:24 | ED General ---
General Stated Complaint: LETHARGIC Source of Information: EMS, Sn[facility] Records Exam Limitations: No Limitations History of Present Illness Date Seen by Provider: Oct 15, 2018 Time Seen by Provider: 11:18 Initial Comments To ER per EMS from [place] and rehabilitation with reports of poor appetite and increasing confusion/lethargy. She currently has a urinary tract infection and is being treated with Levaquin. She does have Alzheimer's. Timing/Duration: 1-2 Days, Getting Worse Severity: Moderate Associated Systoms: No Nausea/Vomiting Allergies and Home Medications Allergies Coded Allergies: Sulfa (Sulfonamide Antibiotics) (Verified Allergy, Unknown, 10/15/18) Uncoded Allergies: NSAIDS (Allergy, Unknown, 10/16/16) Home Medications Acetaminophen 500 Mg Tablet, 500 MG PO Q4H PRN for MILD PAIN, (Reported) Amoxicillin/Potassium Clav 1 Each Tablet, 1 EACH PO BID Prescribed by: NIVIA BHAGAT on 10/19/16 1046 Atorvastatin Calcium 40 Mg Tablet, 40 MG PO HS, (Reported) Carbamide Peroxide 15 Ml Drops, 5 DROPS EACH EAR BID, (Reported) 10 DAY SUPPLY START DATE 10-16-16 Cefdinir 300 Mg Capsule, 300 MG PO BID Prescribed by: NNEKA VALENTIN on 10/15/18 1211 Docusate Sodium 100 Mg Capsule, 100 MG PO BID, (Reported) Duloxetine HCl 30 Mg Capsule.dr, 30 MG PO DAILY, (Reported) Hydrocodone/Acetaminophen 1 Each Tablet, 1 EACH PO q4-q6hr PRN for PAIN Prescribed by: NIVIA BHAGAT on 10/19/16 1046 Insulin Aspart 300 Units/3 Ml Solution, 20 UNITS SQ 0730, (Reported) Insulin Aspart 300 Units/3 Ml Solution, 25 UNITS SQ 1200,1700, (Reported) Insulin Degludec 100 Unit/1 Ml Insuln.pen, 82 UNIT SQ HS, (Reported) Lactulose 20 Gm/30 Ml Solution, 15 ML PO QID, (Reported) Loperamide HCl 2 Mg Tablet, 2 MG PO UD PRN for LOOSE STOOLS, (Reported) MAY GIVE 2 TABS AFTER 1ST LOOSE STOOL, THEN 1 TAB AFTER EACH LOOSE STOOL - NOT TO EXCEED 6 TABS IN 24 HOURS Lorazepam 0.5 Mg Tablet, 0.5 MG PO BID, (Reported) Magnesium Hydroxide 400 Mg/5 Ml Oral.susp, 30 ML PO DAILY PRN for CONSTIPATION, (Reported) Metoprolol Succinate 25 Mg Tab.er.24h, 25 MG PO DAILY Prescribed by: MIKI SPRAGUE on 10/22/16 1304 Mirtazapine 30 Mg Tablet, 30 MG PO HS, (Reported) Nystatin 1 Each Powder.ea., TOP BID, (Reported) APPLY TO GROIN Pantoprazole Sodium 40 Mg Tablet.dr, 40 MG PO DAILY, (Reported) Perphenazine 4 Mg Tablet, 10 MG PO 0800, (Reported) Perphenazine 8 Mg Tablet, 24 MG PO HS, (Reported) Polyethylene Glycol 3350 17 Gm Powd.pack, 17 GM PO BID, (Reported) Risperidone 2 Mg Tablet, 2 MG PO BID, (Reported) Sitagliptin Phosphate 50 Mg Tablet, 50 MG PO DAILY, (Reported) Trihexyphenidyl HCl 2 Mg Tablet, 2 MG PO TID, (Reported) Patient Home Medication List Home Medication List Reviewed: Yes Review of Systems Review of Systems Constitutional: see HPI EENTM: see HPI Respiratory: no symptoms reported Cardiovascular: no symptoms reported Genitourinary: no symptoms reported Musculoskeletal: no symptoms reported Skin: no symptoms reported Psychiatric/Neurological: See HPI Hematologic/Lymphatic: No Symptoms Reported Immunological/Allergic: no symptoms reported Past Djbzcbq-Awymco-Hlhysl Hx Patient Social History Recent Hopitalizations: No Immunizations Up To Date Date of Pneumonia Vaccine: Aug 21, 2016 Date of Influenza Vaccine: Aug 21, 2016 Seasonal Allergies Seasonal Allergies: No Past Medical History Surgeries: No (UNABLE TO OBTAIN HX FROM PT, left shoulder ) Respiratory: No Cardiac: No Neurological: Yes Dementia Genitourinary: No Gastrointestinal: Yes Gastroesophageal Reflux, Chronic Constipation Musculoskeletal: Yes (l shoulder surgery) Arthritis Endocrine: Yes Diabetes, Non-Insulin dep HEENT: Yes (no teeth) Hearing Impairment: Hard of Hearing Cancer: No Psychosocial: Yes Anxiety, Depression Integumentary: No Family Medical History No Pertinent Family Hx Physical Exam Vital Signs Vital Signs - First Documented 10/15/18 11:10 Temp 99.4 Pulse 92 Resp 26 B/P (MAP) 152/92 (112) Pulse Ox 98 O2 Delivery Nasal Cannula O2 Flow Rate 2.00 Capillary Refill : Height, Weight, BMI Height: 5'2.00" Weight: 196lbs. 5.0oz. 89.967757wj; 35.9 BMI Method:Stated General Appearance: No Apparent Distress, WD/WN Eyes: Bilateral Eye Normal Inspection, Bilateral Eye PERRL, Bilateral Eye EOMI HEENT: PERRL/EOMI, TMs Normal, Normal ENT Inspection, Pharynx Normal Neck: Full Range of Motion, Normal Inspection Respiratory: Normal Breath Sounds, No Accessory Muscle Use, No Respiratory Distress Cardiovascular: Regular Rate, Rhythm, Normal Peripheral Pulses Gastrointestinal: Non Tender, Soft Extremity: Normal Capillary Refill, Normal Inspection Neurologic/Psychiatric: Alert, No Motor/Sensory Deficits, Other (alert but does not answer any questions, simply looks at you when you ask a question.) Skin: Normal Color, Warm/Dry Progress/Results/Core Measures Suspected Sepsis SIRS Temperature: Pulse: Respiratory Rate: Laboratory Tests 10/15/18 11:30: White Blood Count 7.5 Blood Pressure / Mean: Laboratory Tests 10/15/18 11:30: Creatinine 1.57H, Platelet Count 188, Total Bilirubin 1.1H Results/Orders Lab Results Laboratory Tests Test 10/15/18 11:30 Range/Units White Blood Count 7.5 4.3-11.0 10^3/uL Red Blood Count 4.28 L 4.35-5.85 10^6/uL Hemoglobin 12.6 11.5-16.0 G/DL Hematocrit 40 35-52 % Mean Corpuscular Volume 94 80-99 FL Mean Corpuscular Hemoglobin 29 25-34 PG Mean Corpuscular Hemoglobin Concent 32 32-36 G/DL Red Cell Distribution Width 13.2 10.0-14.5 % Platelet Count 188 130-400 10^3/uL Mean Platelet Volume 10.1 7.4-10.4 FL Neutrophils (%) (Auto) 84 H 42-75 % Lymphocytes (%) (Auto) 9 L 12-44 % Monocytes (%) (Auto) 6 0-12 % Eosinophils (%) (Auto) 0 0-10 % Basophils (%) (Auto) 0 0-10 % Neutrophils # (Auto) 6.3 1.8-7.8 X 10^3 Lymphocytes # (Auto) 0.7 L 1.0-4.0 X 10^3 Monocytes # (Auto) 0.5 0.0-1.0 X 10^3 Eosinophils # (Auto) 0.0 0.0-0.3 10^3/uL Basophils # (Auto) 0.0 0.0-0.1 10^3/uL Urine Color YELLOW Urine Clarity SLIGHTLY CLOUDY Urine pH 6.5 5-9 Urine Specific [place] 1.015 L 1.016-1.022 Urine Protein 3+ H NEGATIVE Urine Glucose (UA) 2+ H NEGATIVE Urine Ketones NEGATIVE NEGATIVE Urine Nitrite NEGATIVE NEGATIVE Urine Bilirubin NEGATIVE NEGATIVE Urine Urobilinogen NORMAL NORMAL MG/DL Urine Leukocyte Esterase 1+ H NEGATIVE Urine RBC (Auto) 2+ H NEGATIVE Urine RBC 2-5 H /HPF Urine WBC 10-25 H /HPF Urine Squamous Epithelial Cells 0-2 /HPF Urine Renal Epithelial Cells NONE /HPF Urine Crystals NONE /LPF Urine Bacteria LARGE H /HPF Urine Casts PRESENT /LPF Urine Hyaline Casts 0-2 H /LPF Urine Mucus NEGATIVE /LPF Urine Culture Indicated YES Sodium Level 135 135-145 MMOL/L Potassium Level 4.8 3.6-5.0 MMOL/L Chloride Level 99 98-107 MMOL/L Carbon Dioxide Level 23 21-32 MMOL/L Anion Gap 13 5-14 MMOL/L Blood Urea Nitrogen 32 H 7-18 MG/DL Creatinine 1.57 H 0.60-1.30 MG/DL Estimat Glomerular Filtration Rate 32 BUN/Creatinine Ratio 20 Glucose Level 345 H 70-105 MG/DL Calcium Level 9.5 8.5-10.1 MG/DL Corrected Calcium 9.6 8.5-10.1 MG/DL Total Bilirubin 1.1 H 0.1-1.0 MG/DL Aspartate Amino Transf (AST/SGOT) 29 5-34 U/L Alanine Aminotransferase (ALT/SGPT) 12 0-55 U/L Alkaline Phosphatase 91 40-136 U/L Total Protein 7.9 6.4-8.2 GM/DL Albumin 3.9 3.2-4.5 GM/DL My Orders Orders - NNEKA VALENTIN SUPERVISOR TELEVISION CHASSIS REPAIR Cbc With Automated Diff (10/15/18 11:16) Comprehensive Metabolic Panel (10/15/18 11:16) Ua Culture If Indicated (10/15/18 11:16) Chest 1 View, Ap/Pa Only (10/15/18 11:16) Ct Abdomen/Pelvis Wo (10/15/18 11:16) Iv Heplock-Insert (Order) (10/15/18 11:16) Catheter(Urinary) Insert & Ass 03,15 (10/15/18 11:45) Urine Culture (10/15/18 11:30) Ns Iv 1000 Ml (Sodium Chloride 0.9%) (10/15/18 12:00) Insulin (Regular) Human (Humulin R (Per (10/15/18 12:00) Ceftriaxone For Iv Use (Rocephin For I (10/15/18 12:15) Medications Given in ED Current Medications Medications Dose Ordered Sig/Flip Route Start Time Stop Time Status Last Admin Dose Admin Ceftriaxone Sodium 1000 mg/ Sodium Chloride 50 ml @ 100 mls/hr ONCE ONCE IV 10/15/18 12:15 10/15/18 12:44 DC 10/15/18 12:55 100 MLS/HR Vital Signs/I&O 10/15/18 11:10 Temp 99.4 Pulse 92 Resp 26 B/P (MAP) 152/92 (112) Pulse Ox 98 O2 Delivery Nasal Cannula O2 Flow Rate 2.00 Capillary Refill : Diagnostic Imaging Diagonstic Imaging: Xray, CT Comments NAME: BENJAMINCARRIE M [facility] REC#: [id number] PT STATUS: REG ER : 1945 PHYSICIAN: NNEKA VALENTIN APRN ADMIT DATE: 10/15/18/ER Draft Date of Exam:10/15/18 CHEST 1 VIEW, AP/PA ONLY Indication: Increasing lethargy. Time of exam 11:45 AM Correlation is made with prior study from 08/28/2018. The heart is large but stable. Lungs are clear. No infiltrate or failure is seen. No effusion or pneumothorax is identified. IMPRESSION: No acute feature is detected. Dictated on workstation # [id number] Dict: 10/15/18 1154 Trans: 10/15/18 1203 [facility] [id number] Interpreted by: VANIA CHASE MD Electronically signed by: NAME: CARRIE ALEXANDER [facility] REC#: [id number] PT STATUS: REG ER : 1945 PHYSICIAN: NNEKA VALENTIN APRN ADMIT DATE: 10/15/18/ER Draft Date of Exam:10/15/18 CT ABDOMEN/PELVIS WO PROCEDURE: CT abdomen and pelvis without contrast. TECHNIQUE: Multiple contiguous axial images were obtained through the abdomen and pelvis without the use of intravenous contrast. INDICATION: Altered mental status, lethargy, not eating. History of UTI. COMPARISON: 10/16/2016. FINDINGS: Assessment of the abdominal viscera is mildly limited without IV contrast. Lower chest: Chronic linear scar within lung base. Calcified right lower lobe pulmonary granuloma is unchanged. Peritoneum: No free intraperitoneal air or fluid. Liver and biliary system: Unenhanced liver is normal. Cholecystectomy. No biliary duct dilatation. Spleen and Pancreas: Numerous calcified splenic granulomas are unchanged. No concerning splenic lesion or splenomegaly. Unenhanced pancreas is grossly normal. Adrenals: Normal. tract: No renal or ureteral calculi. No obstructive uropathy. A right adnexal cyst is now developed measuring 8.0 x 6.4 cm. It appears fairly simple in nature without mural nodularity or appreciable septations. Hysterectomy. No left adnexal mass. Urinary bladder is decompressed by Maravilla catheter. GI tract: Stomach is decompressed. No bowel obstruction. No pericolonic inflammatory changes. Normal appendix. Vasculature and Lymph nodes: Normal caliber aorta has extensive atherosclerotic plaquing. No abdominal or pelvic lymphadenopathy. Musculoskeletal: No concerning osseous lesion. IMPRESSION: 1. No acute obstructive or inflammatory process in the abdomen or pelvis. 2. No urinary tract calculi. 3. 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 Followup nonemergent pelvic ultrasound could be performed for monitoring purposes as this would not be a source for patient's current symptoms. Dictated on workstation # [id number] Dict: 10/15/18 1229 Trans: 10/15/18 1253 [facility] [id number] Interpreted by: VIOLET ARCHER MD Electronically signed by: Departure Communication (Admissions) She still has urinary tract infection. We'll treat that with Rocephin here, discussed with Dr. WOODS, he has a urine culture and sensitivity showing sensitivity to Levaquin and he would like to continue using Levaquin this point. She's only had about 1 or 2 doses of it.. She'll receive 1 L fluid bolus in the emergency room her renal insufficiency. She'll need outpatient ultrasound of the right adnexal cyst. I notified Dr. Woods of the adnexal cyst and he agrees to follow-up in the outpatient setting. Impression Primary Impression: Urinary tract infection Qualified Codes: N30.00 - Acute cystitis without hematuria Additional Impressions: Alzheimer's dementia Qualified Codes: G30.9 - Alzheimer's disease, unspecified; F02.80 - Dementia in other diseases classified elsewhere without behavioral disturbance right adnexal cyst Disposition: 01 HOME, SELF-CARE Condition: Stable Departure-Patient Inst. Decision time for Depature: 12:10 Referrals: JOSE WOODS DO (PCP/Family) Primary Care Physician Patient Instructions: Delirium (Confusion) (DC), Urinary Tract Infection, Adult (DC) Add. Discharge Instructions: 1. Continue the Levaquin. Encourage plenty of fluids. She'll need an outpatient ultrasound of the cystic appearing structure arising from the right ovary region. Dr. Woods will order this. NNEKA VALENTIN APRN Oct 15, 2018 11:24
[2018-10-15 11:39] LABS: BASOPHILS % (AUTO) 0 % (0-10); BILIRUBIN,URINE NEGATIVE (NEGATIVE); CLARITY,URINE SLIGHTLY CLOUDY; COLOR,URINE YELLOW; EOSINOPHILS % (AUTO) 0 % (0-10); GLUCOSE, URINE (UA) 2+ (NEGATIVE); HEMATOCRIT 40 % (35-52); HEMOGLOBIN 12.6 G/DL (11.5-16.0); KETONES,URINE NEGATIVE (NEGATIVE); LEUKOCYTE ESTERASE ,URINE 1+ (NEGATIVE); LYMPHOCYTES # (AUTO) 0.7 X 10^3 (1.0-4.0); LYMPHOCYTES % (AUTO) 9 % (12-44); MEAN CORPUSCULAR HEMOGLOBIN 29 PG (25-34); MEAN CORPUSCULAR HGB CONC 32 G/DL (32-36); MEAN CORPUSCULAR VOLUME 94 FL (80-99); MEAN PLATELET VOLUME 10.1 FL (7.4-10.4); MONOCYTES # (AUTO) 0.5 X 10^3 (0.0-1.0); MONOCYTES % (AUTO) 6 % (0-12); NEUTROPHILS # (AUTO) 6.3 X 10^3 (1.8-7.8); NEUTROPHILS % (AUTO) 84 % (42-75); NITRITE,URINE NEGATIVE (NEGATIVE); PH,URINE 6.5 (5-9); PLATELET COUNT 188 10^3/uL (130-400); PROTEIN,URINE 3+ (NEGATIVE); RED BLOOD COUNT 4.28 10^6/uL (4.35-5.85); RED CELL DISTRIBUTION WIDTH 13.2 % (10.0-14.5); UROBILINOGEN,URINE NORMAL (NORMAL); WHITE BLOOD COUNT 7.5 10^3/uL (4.3-11.0)
[2018-10-15 11:53] LABS: BACTERIA,URINE LARGE /HPF; SQUAMOUS EPITHELIAL CELL,UR 0-2 /HPF
[2018-10-15 11:54] LABS: HYALINE CASTS, URINE 0-2 /LPF
[2018-10-15 11:59] LABS: ALBUMIN 3.9 GM/DL (3.2-4.5); BILIRUBIN,TOTAL 1.1 MG/DL (0.1-1.0); CALCIUM 9.5 MG/DL (8.5-10.1); CREATININE SERUM 1.57 MG/DL (0.60-1.30); POTASSIUM 4.8 MMOL/L (3.6-5.0); TOTAL PROTEIN 7.9 GM/DL (6.4-8.2)
[2018-10-15] MEDS ORDERED: NS IV 1000 ML 1,000 ML IV SCH (12:00)
[2018-10-15] MEDS ORDERED: inSUlin (REGULAR) HUMAN 1 UNIT/0.01 ML (CHARGE PER UNIT) SC SCH (12:00)
--- NOTE | 2018-10-15 12:04 | Diagnostic Imaging Report ---
Indication: Increasing lethargy. Time of exam 11:45 AM Correlation is made with prior study from 08/28/2018. The heart is large but stable. Lungs are clear. No infiltrate or failure is seen. No effusion or pneumothorax is identified. IMPRESSION: No acute feature is detected. Dictated by: Dictated on workstation # [id number]
[2018-10-15] MEDS ORDERED: CEFD300C3 PO (12:11)
[2018-10-15] MEDS ORDERED: cefTRIAXone FOR IV USE 1,000 MG in NS (IVPB) 50 ML IV ONE (12:15)
--- NOTE | 2018-10-15 12:54 | Diagnostic Imaging Report ---
PROCEDURE: CT abdomen and pelvis without contrast. TECHNIQUE: Multiple contiguous axial images were obtained through the abdomen and pelvis without the use of intravenous contrast. INDICATION: Altered mental status, lethargy, not eating. History of UTI. COMPARISON: 10/16/2016. FINDINGS: Assessment of the abdominal viscera is mildly limited without IV contrast. Lower chest: Chronic linear scar within lung base. Calcified right lower lobe pulmonary granuloma is unchanged. Peritoneum: No free intraperitoneal air or fluid. Liver and biliary system: Unenhanced liver is normal. Cholecystectomy. No biliary duct dilatation. Spleen and Pancreas: Numerous calcified splenic granulomas are unchanged. No concerning splenic lesion or splenomegaly. Unenhanced pancreas is grossly normal. Adrenals: Normal. tract: No renal or ureteral calculi. No obstructive uropathy. A right adnexal cyst is now developed measuring 8.0 x 6.4 cm. It appears fairly simple in nature without mural nodularity or appreciable septations. Hysterectomy. No left adnexal mass. Urinary bladder is decompressed by Maravilla catheter. GI tract: Stomach is decompressed. No bowel obstruction. No pericolonic inflammatory changes. Normal appendix. Vasculature and Lymph nodes: Normal caliber aorta has extensive atherosclerotic plaquing. No abdominal or pelvic lymphadenopathy. Musculoskeletal: No concerning osseous lesion. IMPRESSION: 1. No acute obstructive or inflammatory process in the abdomen or pelvis. 2. No urinary tract calculi. 3. 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 Followup nonemergent pelvic ultrasound could be performed for monitoring purposes as this would not be a source for patient's current symptoms. Dictated by: Dictated on workstation # [id number]
[2018-10-15] MEDS ORDERED: cloNIDine 0.1 MG (CATAPRES) TAB PO ONE (14:15)
[2018-10-15 14:23] VITALS: BP 187/79
== END 2018-10-15 14:23 | disposition home or self-care (01) ==
LOC: EDUNIT# 11:10 → ER 11:11
DX: N39.0 Urinary tract infection, site not specified (principal); G30.9 Alzheimer's disease, unspecified; F03.90 Unspecified dementia, unspecified severity, without behavioral disturbance, psychotic disturbance, mood disturbance, and anxiety; N83.8 Other noninflammatory disorders of ovary, fallopian tube and broad ligament; K21.9 Gastro-esophageal reflux disease without esophagitis; E11.9 Type 2 diabetes mellitus without complications; F41.9 Anxiety disorder, unspecified; F32.9 Major depressive disorder, single episode, unspecified; Z98.890 Other specified postprocedural states; Z87.19 Personal history of other diseases of the digestive system; Z88.2 Allergy status to sulfonamides; Z88.6 Allergy status to analgesic agent; Z79.4 Long term (current) use of insulin
CPT/HCPCS: 36415; 51702; 71045; 74176; 80053; 81000; 85025; 87077; 87088; 87186

== ENCOUNTER → 2018-12-15 | Outpatient (CLI) | payer MEDICARE, MEDICAID ==
[~2018-12-15] MED LIST changes: +CEFD300C3 PO
--- NOTE | 2018-12-15 20:50 | Diagnostic Imaging Report ---
EXAMINATION: Abdominal radiographs, upright and supine views, 3 images. DATE: December 15, 2018. CLINICAL INDICATION: 73-year-old female, constipation. COMPARISON: CT abdomen and pelvis October 15, 2018. Abdominal radiograph October 21, 2016. COMMENTS: There is no identified free intraperitoneal air. Right upper quadrant surgical clips likely relate to prior cholecystectomy. There are gas-filled segments of predominantly large bowel. The large bowel measures up to maximally 10 mm in diameter at what is likely the level of the sigmoid colon. There is a mild volume colonic stool. There are no identified abnormally distended gas-filled segments of small bowel. There are areas of lucency projecting towards the right lesser trochanter which potentially could relate to a hernia although also could relate to patient body habitus and drooping of the lower abdomen, especially correlating with prior CT imaging. IMPRESSION: 1. Gas-filled segments of large bowel measuring up to 10 mm in diameter at the level of the sigmoid colon. 2. Mild volume colonic stool. 3. Areas of lucency projecting towards the right lesser trochanter which potentially may relate to patient body habitus although a hernia is difficult to exclude radiographically. There is no hernia correlating with recent CT of October 15, 2018. Dictated by: Dictated on workstation # [id number]
== END ==
LOC: RAD 18:04
PROVIDERS: ATTEND Family Medicine
DX: K59.00 Constipation, unspecified (principal); Z98.890 Other specified postprocedural states
CPT/HCPCS: 74019

== ENCOUNTER → 2019-12-19 | Outpatient (CLI) | payer MEDICARE, MEDICAID ==
[~2019-12-19] MED LIST changes: +ACHD5005 PO; -HYDR-3062 PO; -METO-387 PO; +MTP25TSR PO
[2019-12-19 12:01] LABS: BILIRUBIN,URINE NEGATIVE (NEGATIVE); CLARITY,URINE SL CLOUDY; COLOR,URINE YELLOW; GLUCOSE, URINE (UA) NEGATIVE (NEGATIVE); KETONES,URINE NEGATIVE (NEGATIVE); LEUKOCYTE ESTERASE ,URINE 3+ (NEGATIVE); NITRITE,URINE NEGATIVE (NEGATIVE); PROTEIN,URINE 1+ (NEGATIVE)
[2019-12-19 12:15] LABS: BACTERIA,URINE MODERATE /HPF; WBC,URINE >100 /HPF
[2019-12-19 12:16] LABS: AMORPHOUS SEDIMENT,UR FEW AMOR URATES /LPF
== END ==
LOC: LABNPT 09:25
PROVIDERS: ATTEND Family Medicine
DX: R82.998 Other abnormal findings in urine (principal)
CPT/HCPCS: 81000; 87077; 87088; 87186

== ENCOUNTER → 2020-03-26 | Outpatient (CLI) | payer OTHER, MEDICAID ==
[2020-03-26 07:59] LABS: ALBUMIN 3.6 GM/DL (3.2-4.5); POTASSIUM 5.2 MMOL/L (3.6-5.0)
[2020-03-26 08:00] LABS: CALCIUM 8.9 MG/DL (8.5-10.1)
[2020-03-26 08:01] LABS: TOTAL PROTEIN 6.4 GM/DL (6.4-8.2)
[2020-03-26 08:03] LABS: BILIRUBIN,TOTAL 0.4 MG/DL (0.1-1.0)
== END ==
LOC: LABNPT 07:50
PROVIDERS: ATTEND Internal Medicine
DX: Z01.89 Encounter for other specified special examinations (principal)
CPT/HCPCS: 80053

== ENCOUNTER → 2021-01-08 | Outpatient (CLI) | payer MEDICARE, MEDICAID ==
[~2021-01-08] MED LIST changes: +MIRT-94 PO; -MIRT30TA PO; +TRH2T PO; -TRIH2TAB2 PO
[2021-01-08 07:57] LABS: BILIRUBIN,URINE NEGATIVE (NEGATIVE); CLARITY,URINE CLEAR; COLOR,URINE YELLOW; GLUCOSE, URINE (UA) NEGATIVE (NEGATIVE); KETONES,URINE NEGATIVE (NEGATIVE); LEUKOCYTE ESTERASE ,URINE TRACE (NEGATIVE); NITRITE,URINE NEGATIVE (NEGATIVE); PH,URINE 6.5 (5-9); PROTEIN,URINE 2+ (NEGATIVE)
[2021-01-08 08:21] LABS: BACTERIA,URINE TRACE /HPF
== END ==
LOC: LAB 07:46 → LABNPT 07:46
PROVIDERS: ATTEND Family Medicine
DX: N39.0 Urinary tract infection, site not specified (principal)
CPT/HCPCS: 81000; 87088

== ENCOUNTER 2021-03-07 05:37 | Outpatient (CLI) | payer MEDICARE, MEDICAID ==
[~2021-03-07] VITALS: Ht 157.5 cm; Wt 91.0 kg
[2021-03-07] MEDS ORDERED: FURO20TA4 PO (11:19)
[2021-03-07] MEDS ORDERED: HALO0.5T PO (11:19)
[2021-03-07] MEDS ORDERED: FLUO20CA42 PO (11:19)
[2021-03-07] MEDS ORDERED: OLAN10TA19 PO (11:19)
[2021-03-07] MEDS ORDERED: SIMV40TA25 PO (11:19)
[2021-03-07] MEDS ORDERED: POLY17PO6 PO (11:19)
[2021-03-07] MEDS ORDERED: LORA10CA PO (11:19)
[2021-03-07] MEDS ORDERED: INSU100I32 SQ (11:19)
== END 2021-03-07 11:36 | disposition home or self-care (01) ==
LOC: PREOP 05:37
PROVIDERS: ATTEND Surgery
DX: Z01.818 Encounter for other preprocedural examination (principal)

== ENCOUNTER 2021-04-18 07:50 | Day surgery (SDC) | payer MEDICARE, MEDICAID ==
[~2021-04-18] VITALS: Ht 160 cm; Wt 92.5 kg
[~2021-04-18 07:50] MED LIST changes: +FLUO20CA42 PO; +FURO20TA4 PO; +HALO0.5T PO; +LORA10CA PO; +OLAN10TA71 PO; +SIMV40TA25 PO
[2021-04-18] MEDS ORDERED: LACTATED RINGERS 1,000 ML IV ONE (08:04)
[2021-04-18] MEDS ORDERED: LACTATED RINGERS 1,000 ML IV STA (08:05)
[2021-04-18 08:10] VITALS: BP 184/88
[2021-04-18] MEDS ORDERED: proPOfol 200 MG/20 ML (DIPRIVAN) VIAL IV ONE (09:08)
[2021-04-18 09:52] VITALS: BP 176/88
[2021-04-18 09:55] VITALS: BP 183/77
--- NOTE | 2021-04-18 09:55 | Progress Note-Post Operative ---
Post-Operative Progess Note Surgeon (s)/Senior Applications Engineer (s) Surgeon AURORA LEE DO Senior Applications Engineer: na Pre-Operative Diagnosis occult +stool Post-Operative Diagnosis incomplete colonoscopy, transverse colon polyp Procedure & Operative Findings Date of Procedure 04/18/21 Procedure Performed/Findings incomplete colonoscopy with hot bx polypectomy Anesthesia Type per operations leader Estimated Blood Loss Estimated blood loss (mL): none Specimens/Packing Specimens Removed colon polyp AURORA LEE DO Apr 18, 2021 09:55
--- NOTE | 2021-04-18 09:56 | Discharge Inst-Simple/Standard ---
Discharge Inst-Standard Patient Instructions/Follow Up Plan of Care/Instructions/FU: Need to set up ct scan abd/pelvis with rectal contrast to evaluate rest of colon. Monique 2 weeks. Activity as Tolerated: Yes Discharge Diet: Regular Diet AURORA LEE DO Apr 18, 2021 09:56
[2021-04-18 10:57] VITALS: BP 175/70
--- NOTE | 2021-04-18 11:03 | Anesthesia-General Post-Op ---
MAC Patient Condition Mental Status/LOC: Same as Preop Cardiovascular: Satisfactory Nausea/Vomiting: Absent Respiratory: Satisfactory Pain: Controlled Complications: Absent Post Op Complications Complications None Follow Up Care/Instructions Patient Instructions None needed. Anesthesiology Discharge Order Discharge Order Patient is doing well, no complaints, stable vital signs, no apparent adverse anesthesia problems. No complications reported per nursing. RATNA STALLINGS CRNA Apr 18, 2021 11:03
--- NOTE | 2021-04-18 14:57 | OPERATIVE REPORT ---
DATE OF SERVICE: 04/18/2021 PREOPERATIVE DIAGNOSIS: Occult positive stool. POSTOPERATIVE DIAGNOSIS: Incomplete colonoscopy, transverse colon polyp. PROCEDURE: Incomplete colonoscopy with hot biopsy polypectomy. SURGEON: Aurora Amaya DO ANESTHESIA: Per [employer]. ESTIMATED BLOOD LOSS: None. COMPLICATIONS: None. INDICATIONS: The patient is a 75-year-old female with occult positive stool. She understands risks and benefits of procedure and wished to proceed with procedure. Consent was signed in the chart. DESCRIPTION OF PROCEDURE: The patient was taken to the endoscopy suite, placed in left lateral recumbent position. Timeout was performed. Digital rectal exam was performed. There were no palpable polyps, masses or ulcerations. Scope was inserted in the rectum, advanced and was able to get to the transverse colon. The patient was repositioned multiple times and unable to advance the scope any further. At this point, it was decided to abort the colonoscopy. Scope was then slowly retracted back. A small polyp was present in the transverse colon, which hot biopsy polypectomy was performed. Scope was then continuously slowly retracted back. No polyps, masses or ulcerations within the remainder of the transverse, descending and sigmoid colon. Once in the rectum, scope was retroflexed noting no other pathology. Scope was returned to its normal position, slowly withdrawn until completely removed. The patient tolerated procedure well without any complications, taken to recovery room in stable condition. RECOMMENDATIONS: The patient will need to evaluate the rest of the colon. We will get a CT scan of the abdomen and pelvis with rectal contrast. We will do this in the near future due to having polypectomy performed. The patient will follow up in the office in 2 weeks to discuss everything and arranged. Job ID: [id number] DocumentID: [id number] Dictated Date: 04/18/2021 09:58:58 Assistant Professor Nurse Education Date: 04/18/2021 14:57:13 Dictated By: AURORA AMAYA DO [facility]
== END 2021-04-18 11:12 | disposition home or self-care (01) ==
LOC: ENDO 07:50
PROVIDERS: ATTEND Surgery
DX: K63.5 Polyp of colon (principal); R19.5 Other fecal abnormalities; I10 Essential (primary) hypertension; K21.9 Gastro-esophageal reflux disease without esophagitis; K42.9 Umbilical hernia without obstruction or gangrene; E11.9 Type 2 diabetes mellitus without complications; F32.9 Major depressive disorder, single episode, unspecified; F03.90 Unspecified dementia, unspecified severity, without behavioral disturbance, psychotic disturbance, mood disturbance, and anxiety; Z79.4 Long term (current) use of insulin; Z79.899 Other long term (current) drug therapy; Z87.891 Personal history of nicotine dependence
CPT/HCPCS: 82947; 88305

== ENCOUNTER → 2021-05-09 | Outpatient (CLI) | payer MEDICARE, MEDICAID ==
--- NOTE | 2021-05-09 12:59 | Diagnostic Imaging Report ---
PROCEDURE: CT abdomen and pelvis without contrast. TECHNIQUE: Multiple contiguous axial images were obtained through the abdomen and pelvis without the use of intravenous contrast. Auto Exposure Controls were utilized during the CT exam to meet ALARA standards for radiation dose reduction. INDICATION: Incomplete colonoscopy COMPARISON: 10/15/2018 FINDINGS: Included portions of the lung bases show scattered subtle groundglass densities with areas of septal thickening. Given the presence of moderate cardiomegaly, findings could be on the basis of mild pulmonary edema. Moderate calcified coronary atherosclerosis and prominent bulky calcifications of the mitral valve are also noted. CT ABDOMEN: Administered colonic contrast refluxes to the splenic flexure. There is moderate amount of retained stool throughout the colon. This does obscure evaluation. Normal appendix is identified. Small bowel loops are nondistended. The kidneys show punctate nonobstructive calculus within the inferior pole the right. Multiple calcified splenic granulomata are also noted. Otherwise, kidneys, adrenal glands, spleen, pancreas, and liver have an unremarkable noncontrast CT appearance. There is no loculated fluid collection, free fluid, or free air within the abdomen. No abnormal mesenteric or retroperitoneal adenopathy is seen. Osseous structures show no acute abnormalities. There is advanced diffuse calcified aortic arch or atherosclerosis. CT PELVIS: Urinary bladder is unopacified. No calculi are seen within urinary bladder. Left adnexal cystic lesion measures 5.8 x 7.3 cm and is presumed ovarian in nature. Previously, cystic structure was identified within the right hemipelvis and measured 6.4 x 8.1 cm. There is no loculated fluid collection, free fluid or free air within the pelvis. No abnormal adenopathy is seen. Osseous structures show no acute abnormalities IMPRESSION: 1. Administered contrast refluxes only to the splenic flexure. Additionally, there is moderate retained stool throughout the colon. Double contrast barium enema is recommended after appropriate bowel prep. 2. Left adnexal cystic structure, presumably ovarian in nature. This could be further assessed with pelvic sonogram. 3. Punctate nonobstructive right renal calculus. 4. Probable mild pulmonary edema with cardiomegaly. 5. Advanced calcified aortic and coronary atherosclerosis. 6. Bulky calcifications in mitral valve. Dictated by: Dictated on workstation # [id number]
== END ==
PROVIDERS: ATTEND Surgery
DX: Z53.9 Procedure and treatment not carried out, unspecified reason (principal); K21.9 Gastro-esophageal reflux disease without esophagitis; N83.8 Other noninflammatory disorders of ovary, fallopian tube and broad ligament; N20.0 Calculus of kidney; I51.7 Cardiomegaly; I25.10 Atherosclerotic heart disease of native coronary artery without angina pectoris; I70.0 Atherosclerosis of aorta; I34.8 Other nonrheumatic mitral valve disorders; R19.5 Other fecal abnormalities
CPT/HCPCS: 74176

== ENCOUNTER → 2021-05-27 | Outpatient (CLI) | payer MEDICARE, MEDICAID ==
[2021-05-27 03:54] LABS: BILIRUBIN,URINE NEGATIVE (NEGATIVE); CLARITY,URINE CLEAR; COLOR,URINE YELLOW; GLUCOSE, URINE (UA) NEGATIVE (NEGATIVE); KETONES,URINE NEGATIVE (NEGATIVE); LEUKOCYTE ESTERASE ,URINE TRACE (NEGATIVE); NITRITE,URINE NEGATIVE (NEGATIVE); PH,URINE 6.5 (5-9); PROTEIN,URINE 2+ (NEGATIVE)
[2021-05-27 04:10] LABS: BACTERIA,URINE NEGATIVE /HPF; SQUAMOUS EPITHELIAL CELL,UR 0-2 /HPF
== END ==
LOC: LABNPT 03:38
PROVIDERS: ATTEND Family Medicine
DX: N39.0 Urinary tract infection, site not specified (principal)
CPT/HCPCS: 81000

== ENCOUNTER 2021-11-23 16:27 | Inpatient (IN) | payer MEDICARE, MEDICAID ==
[~2021-11-23] VITALS: Ht 157.5 cm; Wt 99.8 kg
[2021-11-23] MEDS ORDERED: NOREPINEPHRINE 8 MG/250 ML 250 ML IV ONE (16:52)
[2021-11-23] MEDS ORDERED: PROPOFOL DRIP (ICU) 100 ML IV ONE (17:00)
[2021-11-23] MEDS ORDERED: ceFAZolin INJECTION 1,000 MG ONE (17:02)
[2021-11-23] MEDS ORDERED: NS (IVPB) 50 ML ONE ×2 (17:02→21:40)
[2021-11-23] MEDS ORDERED: ROCURONIUM 10 MG/ML 5 ML SYRINGE IV ONE (17:10)
[2021-11-23] MEDS ORDERED: EPINEPHrine 0.1 MG/ML 10 ML (HOSPIRA) SYR IV ONE (17:10)
[2021-11-23] MEDS ORDERED: ETOMIDATE IV SOLN 20 MG/10 ML VIAL IV ONE (17:10)
[2021-11-23 17:12] LABS: BASOPHILS # (AUTO) 0.1 10^3/uL (0.0-0.1); BASOPHILS % (AUTO) 1 % (0-10); EOSINOPHILS # (AUTO) 0.4 10^3/uL (0.0-0.3); EOSINOPHILS % (AUTO) 2 % (0-10); HEMATOCRIT 39 % (35-52); HEMOGLOBIN 11.8 g/dL (11.5-16.0); LYMPHOCYTES # (AUTO) 5.2 10^3/uL (1.0-4.0); LYMPHOCYTES % (AUTO) 28 % (12-44); MEAN CORPUSCULAR HEMOGLOBIN 30 pg (25-34); MEAN CORPUSCULAR HGB CONC 30 g/dL (32-36); MEAN CORPUSCULAR VOLUME 100 fL (80-99); MEAN PLATELET VOLUME 10.7 fL (9.0-12.2); MONOCYTES # (AUTO) 1.5 10^3/uL (0.0-1.0); MONOCYTES % (AUTO) 8 % (0-12); NEUTROPHILS # (AUTO) 9.7 10^3/uL (1.8-7.8); NEUTROPHILS % (AUTO) 52 % (42-75); PLATELET COUNT 220 10^3/uL (130-400); WHITE BLOOD COUNT 18.5 10^3/uL (4.3-11.0)
[2021-11-23 17:16] LABS: ALBUMIN 3.3 GM/DL (3.2-4.5); POTASSIUM 6.3 MMOL/L (3.6-5.0)
[2021-11-23 17:17] LABS: CALCIUM 8.4 MG/DL (8.5-10.1)
--- NOTE | 2021-11-23 17:17 | ED CPR ---
HPI-CPR General Chief Complaint: Code Blue Stated Complaint: CODE BLUE Source of Information: Patient Exam Limitations: Other History of Present Illness Date Seen by Provider: Nov 23, 2021 Time Seen by Provider: 16:32 Initial Comments Patient presents to the ER by EMS from [facility] with chief complaint that at 1600 her eyes rolled back in her head and she passed out. Staff began chest compressions and summonsed EMS. EMS arrived and saw PEA on the monitor. No shocks were ever delivered. 2 g of epinephrine were given on route through a IO in her tibia. Blood sugar was 198 per EMS. A laryngeal airway was placed and the patient was 84% on 100% oxygen by Ambi mask on arrival. Patient had been doing okay up until now other than staff noted her kidney function was poor on her last lab draw. Patient has not had any fevers chills nausea vomiting or known sick contacts. Unknown Covid and influenza vaccine status. She has a strong history of dementia, hyperlipidemia, hyperkalemia, type 2 diabetes. Her sister in law relates she has never had coronary disease. Allergies and Home Medications Allergies Coded Allergies: Sulfa (Sulfonamide Antibiotics) (Verified Allergy, Unknown, 10/15/18) Uncoded Allergies: NSAIDS (Allergy, Unknown, 10/16/16) Patient Home Medication List Home Medication List Reviewed: Yes Acetaminophen (Tylenol Extra Strength) 500 Mg Tablet, 500 MG PO Q4H PRN for MILD PAIN, (Reported) Entered as Reported by: YOVANY CASEY on 10/16/16 1602 Atorvastatin Calcium (Lipitor) 40 Mg Tablet, 40 MG PO HS, (Reported) Entered as Reported by: YOVANY CASEY on 10/16/16 1602 Docusate Sodium (Colace) 100 Mg Capsule, 100 MG PO BID, (Reported) Entered as Reported by: YOVANY CASEY on 10/16/16 1602 Fluoxetine HCl (Prozac) 20 Mg Capsule, 20 MG PO DAILY, (Reported) Entered as Reported by: AUBRIE CLINTON on 03/07/21 1119 Furosemide (Furosemide) 20 Mg Tablet, 20 MG PO DAILY, (Reported) Entered as Reported by: AUBRIE CLINTON on 03/07/21 1119 Haloperidol (Haloperidol) 0.5 Mg Tablet, 0.5 MG PO DAILY, (Reported) Entered as Reported by: AUBRIE CLINTON on 03/07/21 1119 Insulin Aspart (Novolog Flexpen) 300 Units/3 Ml Solution, 20 UNITS SQ 0730, (Reported) Entered as Reported by: YOVANY CASEY on 10/16/16 1544 Insulin Aspart (Novolog Flexpen) 300 Units/3 Ml Solution, 25 UNITS SQ 1200,1700, (Reported) Entered as Reported by: YOVANY CASEY on 10/16/16 1544 Insulin Degludec (Tresiba Flextouch U-100) 100 Unit/1 Ml Insuln.pen, 82 UNIT SQ HS, (Reported) Entered as Reported by: YOVANY CASEY on 10/16/16 1602 Insulin Degludec (Tresiba Flextouch U-100) 100 Unit/1 Ml Insuln.pen, 100 UNIT SQ HS, (Reported) Entered as Reported by: AUBRIE CLINTON on 03/07/21 1119 Lactulose (Lactulose) 20 Gm/30 Ml Solution, 15 ML PO QID, (Reported) Entered as Reported by: YOVANY CASEY on 10/16/16 1602 Loratadine (Claritin) 10 Mg Capsule, 10 MG PO DAILY, (Reported) Entered as Reported by: AUBRIE CLINTON on 03/07/21 111 Magnesium Hydroxide (Milk of Magnesia) 400 Mg/5 Ml Oral.susp, 30 ML PO DAILY PRN for CONSTIPATION, (Reported) Entered as Reported by: YOVANY CASEY on 10/16/16 1602 Metoprolol Succinate (Metoprolol Succinate) 25 Mg Tab.er.24h, 25 MG PO DAILY Prescribed by: MIKI SPRAGUE on 10/22/16 1304 Olanzapine (Olanzapine) 10 Mg Tablet, 10 MG PO BID, (Reported) Entered as Reported by: AUBRIE CLINTON on 03/07/21 111 Pantoprazole Sodium (Protonix) 40 Mg Tablet.dr, 40 MG PO DAILY, (Reported) Entered as Reported by: YOVANY CASEY on 10/16/16 1602 Polyethylene Glycol 3350 (Miralax) 17 Gm Powd.pack, 17 GM PO BID, (Reported) Entered as Reported by: AUBRIE CLINTON on 03/07/21 111 Simvastatin (Simvastatin) 40 Mg Tablet, 40 MG PO DAILY, (Reported) Entered as Reported by: AUBRIE CLINTON on 03/07/21 1119 Trihexyphenidyl HCl (Trihexyphenidyl HCl) 2 Mg Tablet, 2 MG PO TID, (Reported) Entered as Reported by: YOVANY CASEY on 10/16/16 1602 Review of Systems Review of Systems Constitutional: see HPI (Patient is in severe distress after having been coded for cardiopulmonary collapse and unable to offer any meaningful review of systems. What review of systems is available comes from staff) Respiratory: Denies Cough, Denies Shortness of Air Cardiovascular: Denies Chest Pain, Denies Syncope Gastrointestinal: Denies Abdominal Pain, Denies Constipated, Denies Diarrhea, Denies Poor Fluid Intake, Denies Vomiting Genitourinary: Denies Burning, Denies Discharge All Other Systems Reviewed Negative Unless Noted: Yes Past Ninddkw-Ncnhvp-Zmsncp Hx Patient Social History Tobacco Use?: No Use of E-Cig and/or Vaping dev: No Substance use?: No Immunizations Up To Date Tetanus Booster (TDap): Unknown PED Vaccines UTD: Yes Seasonal Allergies Seasonal Allergies: No Past Medical History Surgeries: No (UNABLE TO OBTAIN HX FROM PT, left shoulder ) Respiratory: No Cardiac: Yes (MITRAL VALVE STENOSIS) Neurological: Yes Dementia Genitourinary: Yes UTI-Chronic Gastrointestinal: Yes Gastroesophageal Reflux, Chronic Constipation Musculoskeletal: Yes (l shoulder surgery) Arthritis Endocrine: Yes Diabetes, Non-Insulin dep HEENT: Yes (no teeth) Hearing Impairment: Hard of Hearing Cancer: No Psychosocial: Yes (DEMENTIA, BEHAVIOR DISORDER) Anxiety, Depression Integumentary: No Family Medical History No Pertinent Family Hx Physical Exam Vital Signs Vital Signs - First Documented 11/23/21 16:32 Temp 36.4 Pulse 118 B/P (MAP) 210/127 (154) Pulse Ox 84 O2 Delivery Ambu Bag Capillary Refill : Height, Weight, BMI Height: 5'2.00" Weight: 196lbs. 5.0oz. [id number]; 36.13 BMI Method:Estimated General Appearance: Obese, Severe Distress HEENT: Other (Pupils 3 mm sluggishly reactive symmetric bilaterally; left iris heterochromia) Neck: Full Range of Motion, Normal Inspection Respiratory: Crackles, Respiratory Distress (Severe respiratory distress with an LMA and Ambu bag delivering 100% oxygen breaths and oxygen saturation 84% on arrival), Other (Moderate amount of thin, serosanguineous respiratory secretions present.) Cardiovascular: No Normal Peripheral Pulses (Carotid pulse palpable); Tachycardia Gastrointestinal: Normal Bowel Sounds, Non Tender, Soft Extremity: Slow Capillary Refill, Other (Cyanotic with sluggish capillary refill) Neurologic/Psychiatric: Other (GCS 3 T) Skin: Other (Cyanotic) Focused Exam Lactate Level Lactic Acid Level Laboratory Tests Test 11/23/21 16:38 Lactic Acid Level 5.21 MMOL/L (0.50-2.00) *H Procedures/Interventions Reason for Intubation: Cardiopulmonary arrest Date of ETT Placement: Nov 23, 2021 Time of ETT Placement: 16:42 Intubation Method: orotracheal Tube Size: 7.5 Medications: Etomidate (20 mg), Rocuronium (50 mg) Positive End Tide CO2: Yes Breath Sounds after Intubation: bilateral-equal Intubation Complications: no complications, O2 saturation decreased (Oxygen saturation in the low 80s after intubation) Post Intubation Xray: Yes ET tube 2 to 3 cm above the becka in good position with no pneumothorax. Leonidas vision channeled 3 MAC with 7.5 ET tube placed at 21 at the gumline. 10 cc in the cuff of air. Progress/Results/Core Measures Results/Orders Lab Results Laboratory Tests Test 11/23/21 16:38 11/23/21 16:52 Range/Units White Blood Count 18.5 H 4.3-11.0 10^3/uL Red Blood Count 3.92 3.80-5.11 10^6/uL Hemoglobin 11.8 11.5-16.0 g/dL Hematocrit 39 35-52 % Mean Corpuscular Volume 100 H 80-99 fL Mean Corpuscular Hemoglobin 30 25-34 pg Mean Corpuscular Hemoglobin Concent 30 L 32-36 g/dL Red Cell Distribution Width 13.9 10.0-14.5 % Platelet Count 220 130-400 10^3/uL Mean Platelet Volume 10.7 9.0-12.2 fL Immature Granulocyte % (Auto) 8 % Neutrophils (%) (Auto) 52 42-75 % Lymphocytes (%) (Auto) 28 12-44 % Monocytes (%) (Auto) 8 0-12 % Eosinophils (%) (Auto) 2 0-10 % Basophils (%) (Auto) 1 0-10 % Neutrophils # (Auto) 9.7 H 1.8-7.8 10^3/uL Lymphocytes # (Auto) 5.2 H 1.0-4.0 10^3/uL Monocytes # (Auto) 1.5 H 0.0-1.0 10^3/uL Eosinophils # (Auto) 0.4 H 0.0-0.3 10^3/uL Basophils # (Auto) 0.1 0.0-0.1 10^3/uL Immature Granulocyte # (Auto) 1.5 H 0.0-0.1 10^3/uL Neutrophils % (Manual) 50 % Lymphocytes % (Manual) 38 % Monocytes % (Manual) 3 % Metamyelocytes % 3 % Myelocytes % 2 % Band Neutrophils 4 % Blood Morphology Comment NORMAL Prothrombin Time 15.9 H 12.2-14.7 SEC INR Comment 1.2 0.8-1.4 Activated Partial Thromboplast Time 44 H 24-35 SEC D-Dimer 9.33 H 0.00-0.49 UG/ML Urine Color YELLOW Urine Clarity CLEAR Urine pH 6.0 5-9 Urine Specific [place] 1.025 H 1.016-1.022 Urine Protein 3+ H NEGATIVE Urine Glucose (UA) TRACE H NEGATIVE Urine Ketones NEGATIVE NEGATIVE Urine Nitrite NEGATIVE NEGATIVE Urine Bilirubin NEGATIVE NEGATIVE Urine Urobilinogen 1.0 < = 1.0 MG/DL Urine Leukocyte Esterase TRACE H NEGATIVE Urine RBC (Auto) 3+ H NEGATIVE Urine RBC 25-50 H /HPF Urine WBC 2-5 /HPF Urine Squamous Epithelial Cells 0-2 /HPF Urine Crystals NONE /LPF Urine Bacteria FEW H /HPF Urine Casts NONE /LPF Urine Mucus NEGATIVE /LPF Urine Culture Indicated YES Sodium Level 134 L 135-145 MMOL/L Potassium Level 6.3 H 3.6-5.0 MMOL/L Chloride Level 105 98-107 MMOL/L Carbon Dioxide Level 14 L 21-32 MMOL/L Anion Gap 15 H 5-14 MMOL/L Blood Urea Nitrogen 45 H 7-18 MG/DL Creatinine 2.34 H 0.60-1.30 MG/DL Estimat Glomerular Filtration Rate 21 BUN/Creatinine Ratio 19 Glucose Level 223 H 70-105 MG/DL Lactic Acid Level 5.21 *H 0.50-2.00 MMOL/L Calcium Level 8.4 L 8.5-10.1 MG/DL Corrected Calcium 9.0 8.5-10.1 MG/DL Total Bilirubin 0.5 0.1-1.0 MG/DL Aspartate Amino Transf (AST/SGOT) 29 5-34 U/L Alanine Aminotransferase (ALT/SGPT) 21 0-55 U/L Alkaline Phosphatase 114 40-136 U/L Troponin I 0.087 H <0.028 NG/ML B-Type Natriuretic Peptide 838.6 H <100.0 PG/ML Total Protein 7.1 6.4-8.2 GM/DL Albumin 3.3 3.2-4.5 GM/DL Procalcitonin 0.26 H <0.10 NG/ML Glucometer 266 H 70-110 MG/DL My Orders Orders - BRAN BAILON J Norepinephrine 8 Mg/250 Ml (Norepinephri (11/23/21 16:52) Propofol Drip (Icu) (Diprivan Drip (Icu) (11/23/21 17:00) Cefazolin Injection (Ancef Injection) (11/23/21 17:02) Ns (Ivpb) (Sodium Chloride 0.9% Ivpb Bag (11/23/21 17:02) Cbc With Automated Diff (11/23/21 17:04) Comprehensive Metabolic Panel (11/23/21 17:04) Protime With Inr (11/23/21 17:04) Chest 1 View, Ap/Pa Only (11/23/21 17:04) Partial Thromboplastin Time (11/23/21 17:04) Blood Culture (11/23/21 17:04) Lactic Acid Analyzer (11/23/21 17:04) Troponin I Albert (11/23/21 17:04) Covid 19 Inhouse Test (11/23/21 17:04) Influenza A And B By Pcr (11/23/21 17:04) Manual Differential (11/23/21 16:38) Medications Given in ED Vital Signs/I&O 11/23/21 11/23/21 16:32 16:55 Temp 36.4 Pulse 118 60 B/P (MAP) 210/127 (154) 185/81 Pulse Ox 84 O2 Delivery Ambu Bag 11/24/21 00:00 Intake Total 100 ml Balance 100 ml Progress Progress Note : Time: 18:10 Progress Note Spoke to [id number] Albina and discussed the poor prognosis and after discussion of goals of care elected the patient to be DNR. Given her advanced dementia she is likely not a candidate for cooling as it is difficult to ascertain her neuro status. Propofol was initiated for sedation. Initial ECG Impression Date: Nov 23, 2021 Initial ECG Impression Time: 16:45 Initial ECG Rate: 92 Initial ECG Rhythm: Normal Sinus Initial ECG Intervals: DC (229) Initial ECG Impression: Nonspecific Changes, Acute VT Comment Significant ST elevation in leads II, III and aVF concerning for inferior VT. ST depression in anterior lead V2. Diagnostic Imaging Diagonstic Imaging: Xray Plain Films/CT/US/NM/MRI: chest Comments [facility] UPMCAhaali [facility] [place], [place] NAME: CARRIE PHAN [facility] REC#: [id number] PT STATUS: REG SDC : 1945 PHYSICIAN: BRAN BAILON MD ADMIT DATE: 11/23/21/CATH Draft Date of Exam:11/23/21 CHEST 1 VIEW, AP/PA ONLY EXAMINATION: Chest 1 view HISTORY: intubation COMPARISON: 10/15/2018 FINDINGS: Endotracheal tube tip terminates 5 cm above the becka. Gastric tube tip terminates below the field of view. Right internal jugular central venous catheter tip terminates in the superior vena cava. There is severe bilateral interstitial opacities. There is a small right effusion. No pneumothorax. Heart size is normal. IMPRESSION: 1. Severe bilateral interstitial opacities which may represent severe edema or a severe pneumonia. Dictated on workstation # [id number] Dict: 11/23/21 1723 Trans: 11/23/21 1726 CVB [id number] Interpreted by: RAMANDO LUJAN MD Electronically signed by: Reviewed: Reviewed by Me Critical Care Note Critical Care Start Time: 16:32 Stop Time: 17:35 Total Time (minutes) 63 Progress Patient arrived having just achieved return of spontaneous circulation by EMS from [facility]. Coordinated care with ancillary staff, nursing staff, made phone calls to family and spoke to [id number] Albina Phan to get more history. Reviewed [facility] records as well as relevant medical records and discussed the case and management with cardiology. On patient's arrival we are unable to adequately oxygenate her so we elected to remove the LMA use [id number] and in [place], apply 50 mg of rocuronium and 20 mg of etomidate. Intubation at 1642 using a 7.5 tube, channeled Leonidas vision and placed at 22 at the [facility]. First attempt was successful and oxygen status improved and were able to get her up to 100% using [id number] and 100% FiO2. An OG was placed by nursing at 1643. Blood cultures and labs were obtained. Initial blood pressure on arrival was 210/127 heart rate of 118 and a temperature of 36.4. An EKG was called for which demonstrated some ST elevation in the inferior leads concern for VT as a source of her cardiopulmonary collapse. Dr. Marin was called and shortly after arrived in the ER to examine the EKG. He elected to take the patient to the Patient Partner. Blood sugar repeat was 266. End-tidal was 39. Put her on the vent with a PEEP of 7, FiO2 100%, 450 tidal volume and 18 respirators. Maravilla catheter was placed. No output from the bladder. She had a large pendulous abdomen so we put her in reverse Trendelenburg to free up her lung so she can breathe better. OG failed to return more than about 10 cc of gastric contents. OG placement was confirmed again. Because of invasive lines were being started ordered some cefazolin. Dr. Marin had voiced doubts about the EKG so we instead elected to broaden our antibiotic selection for possible sepsis. Chest x-ray was reviewed which showed pulmonary edema bilaterally. Is felt this is more likely than pneumonia but cefepime and vancomycin was initiated. She had received 500 cc by EMS and about 250 cc of saline from the ER and her oxygenation was getting harder and harder to perform. She is having more pink frothy pulmonary secretions and is felt she was going into fluid overload likely related to heart failure likely secondary to VT. Lasix 40 mg IV was initiated which produced no urine. IV fluids were held. Patient had a good blood pressure 177/82 so we continue to titrate Levophed down to 0.02 at 1725. Patient went to the Patient Partner at 1735. Departure Communication (Admissions) Time/Spoke to Admitting Phy: 16:45 Discussed the case with Dr. Marin who came to the ER subsequently, examined the patient and EKG and elected to go to the Patient Partner Impression Primary Impression: Acute VT Qualified Codes: I21.19 - ST elevation (STEMI) myocardial infarction involving other coronary artery of inferior wall Additional Impression: Cardiopulmonary arrest with successful resuscitation Disposition: 09 ADMITTED INPATIENT Condition: Critical Admissions Decision to Admit Reason: Admit from ER (General) Decision to Admit/Date: Nov 23, 2021 Time/Decision to Admit Time: 17:30 Departure-Patient Inst. Referrals: JOSE WOODS DO (PCP) Primary Care Physician BRAN BAILON Nov 23, 2021 17:17
[2021-11-23 17:18] LABS: TOTAL PROTEIN 7.1 GM/DL (6.4-8.2)
[2021-11-23] MEDS ORDERED: NS IV 1000 ML 1,000 ML ONE ×2 (17:18→18:02)
[2021-11-23 17:20] LABS: BILIRUBIN,TOTAL 0.5 MG/DL (0.1-1.0)
[2021-11-23 17:22] LABS: CREATININE SERUM 2.34 MG/DL (0.60-1.30)
--- NOTE | 2021-11-23 17:24 | Cardiology History & Physical ---
HPI-Cardiology Cardiology H&P Date of Admission 11/23/21 Primary Care Physician Rodrick Zaldivar DO Attending Physician Kenny Marin MD, MA FACP [facility] Consulting Physician [facility] CC: Unresponsiveness HPI 76 yo woman, resident of a local [place], reported have become unresponsiveness. EMT found a rhythm but no pulse, treated with iv epi, presented with a rhythm and pulse to ER but bp was low for which the ER physician gave additional Epi and then a Levophed infusion. Has been intubated and placed on mech vent. She is reported to suffer from dementia. No history can be obtained. Is stated to be full code and has opted for invasive procedures until as recently as March 2021 (colonoscopy with polypectomy). ECG shows questionable inf wall ST elevation (in the setting of chronic RBBB and LAFB) Review of Systems-Cardiology Review of Systems Constitutional: other (No ROS can be obtained due to reasons noted above) UNK-Xxcvly-Fvtccd Hx Patient Social History 2nd Hand Smoke Exposure: No Immunizations Up To Date Tetanus Booster (TDap): Unknown Date of Pneumonia Vaccine: Aug 21, 2016 Date of Influenza Vaccine: Jul 19, 2020 Past Medical History PMH As described under Assessment. Family Medical History Family Medical History: She is reported to have fam h/o DM Allergies and Home Medications Allergies Coded Allergies: Sulfa (Sulfonamide Antibiotics) (Verified Allergy, Unknown, 10/15/18) Uncoded Allergies: NSAIDS (Allergy, Unknown, 10/16/16) Patient Home Medication List Home Medication List Reviewed: Yes Acetaminophen (Tylenol Extra Strength) 500 Mg Tablet, 500 MG PO Q4H PRN for MILD PAIN, (Reported) Entered as Reported by: YOVANY CASEY on 10/16/16 1602 Atorvastatin Calcium (Lipitor) 40 Mg Tablet, 40 MG PO HS, (Reported) Entered as Reported by: YOVANY CASEY on 10/16/16 1602 Docusate Sodium (Colace) 100 Mg Capsule, 100 MG PO BID, (Reported) Entered as Reported by: YOVANY CASEY on 10/16/16 1602 Fluoxetine HCl (Prozac) 20 Mg Capsule, 20 MG PO DAILY, (Reported) Entered as Reported by: AUBRIE CLINTON on 03/07/21 1119 Furosemide (Furosemide) 20 Mg Tablet, 20 MG PO DAILY, (Reported) Entered as Reported by: AUBRIE CLINTON on 03/07/21 111 Haloperidol (Haloperidol) 0.5 Mg Tablet, 0.5 MG PO DAILY, (Reported) Entered as Reported by: AUBRIE CLINTON on 03/07/21 111 Insulin Aspart (Novolog Flexpen) 300 Units/3 Ml Solution, 20 UNITS SQ 0730, (Reported) Entered as Reported by: YOVANY CASEY on 10/16/16 1544 Insulin Aspart (Novolog Flexpen) 300 Units/3 Ml Solution, 25 UNITS SQ 1200,1700, (Reported) Entered as Reported by: YOVANY CASEY on 10/16/16 1544 Insulin Degludec (Tresiba Flextouch U-100) 100 Unit/1 Ml Insuln.pen, 82 UNIT SQ HS, (Reported) Entered as Reported by: YOVANY CASEY on 10/16/16 160 Insulin Degludec (Tresiba Flextouch U-100) 100 Unit/1 Ml Insuln.pen, 100 UNIT SQ HS, (Reported) Entered as Reported by: AUBRIE CLINTON on 03/07/21 111 Lactulose (Lactulose) 20 Gm/30 Ml Solution, 15 ML PO QID, (Reported) Entered as Reported by: YOVANY CASEY on 10/16/16 160 Loratadine (Claritin) 10 Mg Capsule, 10 MG PO DAILY, (Reported) Entered as Reported by: AUBRIE CLINTON on 03/07/21 111 Magnesium Hydroxide (Milk of Magnesia) 400 Mg/5 Ml Oral.susp, 30 ML PO DAILY PRN for CONSTIPATION, (Reported) Entered as Reported by: YOVANY CASEY on 10/16/16 1602 Metoprolol Succinate (Metoprolol Succinate) 25 Mg Tab.er.24h, 25 MG PO DAILY Prescribed by: MIKI SPRAGUE on 10/22/16 1304 Olanzapine (Olanzapine) 10 Mg Tablet, 10 MG PO BID, (Reported) Entered as Reported by: AUBRIE CLINTON on 03/07/21 111 Pantoprazole Sodium (Protonix) 40 Mg Tablet.dr, 40 MG PO DAILY, (Reported) Entered as Reported by: YOVANY CASEY on 10/16/16 1602 Polyethylene Glycol 3350 (Miralax) 17 Gm Powd.pack, 17 GM PO BID, (Reported) Entered as Reported by: AUBRIE CLINTON on 03/07/21 1119 Simvastatin (Simvastatin) 40 Mg Tablet, 40 MG PO DAILY, (Reported) Entered as Reported by: AUBRIE CLINTON on 03/07/21 1119 Trihexyphenidyl HCl (Trihexyphenidyl HCl) 2 Mg Tablet, 2 MG PO TID, (Reported) Entered as Reported by: YOVANY CASEY on 10/16/16 1602 Physical Exam-Cardiology Physical Exam Vital Signs/I&O Capillary Refill : Constitutional: other (unresponsive, on mech vent) HEENT: other (pupils reactive) Neck: other (carotids palpable) Respiratory: other (on mech vent, fair to good air entry) Cardiovascular: irregularly irregular, systolic murmur (soft GIDEON at card base) Gastrointestinal: distended; No guarding, No rebound; audible bowel sounds Extremities: other (mild, bilateral edema); No clubbing, No cyanosis Neurologic/Psychiatric: other (unresponsive) Skin: No rash on exposed areas, No ulcerations on exposed areas Data Review Labs Laboratory Tests 11/23/21 16:38: White Blood Count 18.5H, Red Blood Count 3.92, Hemoglobin 11.8, Hematocrit 39, Mean Corpuscular Volume 100H, Mean Corpuscular Hemoglobin 30, Mean Corpuscular Hemoglobin Concent 30L, Red Cell Distribution Width 13.9, Platelet Count 220, Mean Platelet Volume 10.7, Immature Granulocyte % (Auto) 8, Neutrophils (%) (Auto) 52, Lymphocytes (%) (Auto) 28, Monocytes (%) (Auto) 8, Eosinophils (%) (Auto) 2, Basophils (%) (Auto) 1, Neutrophils # (Auto) 9.7H, Lymphocytes # (Auto) 5.2H, Monocytes # (Auto) 1.5H, Eosinophils # (Auto) 0.4H, Basophils # (Auto) 0.1, Immature Granulocyte # (Auto) 1.5H, Sodium Level 134L, Potassium Level 6.3H, Chloride Level 105, Glucose Level 223H, Calcium Level 8.4L, Corrected Calcium 9.0, Total Protein 7.1, Albumin 3.3 11/23/21 17:10: A/P-Cardiology Assessment/Admission Diagnosis Questionable ST elevation in inf leads (in the setting of RBBB and LAFB) suggestive of ac IA PEA, possibly related to large IA H/o dementia, but full resuscitation status is stated H/o HLP H/o HTN H/o DM II H/o CKD Previous h/o tobaccoism - states quit in 1997 Admission Status: Inpatient Order (span 2 midnights) Reason for Inpatient Admission: Ac IA Discussion and Recomendations Given suspected ac IA associated with hemodynamic compromise, full code status, presentation in extremis, and recent h/o opting for invasive procedures, cardiac cath (and, if needed, cor intervention) appears reasonable KENNY MARIN MD FACP FACC CCDS Nov 23, 2021 17:24
[2021-11-23 17:25] LABS: INR 1.2 (0.8-1.4); PROTHROMBIN TIME PATIENT 15.9 SEC (12.2-14.7)
--- NOTE | 2021-11-23 17:27 | Diagnostic Imaging Report ---
EXAMINATION: Chest 1 view HISTORY: intubation COMPARISON: 10/15/2018 FINDINGS: Endotracheal tube tip terminates 5 cm above the becka. Gastric tube tip terminates below the field of view. Right internal jugular central venous catheter tip terminates in the superior vena cava. There is severe bilateral interstitial opacities. There is a small right effusion. No pneumothorax. Heart size is normal. IMPRESSION: 1. Severe bilateral interstitial opacities which may represent severe edema or a severe pneumonia. Dictated by: Dictated on workstation # [id number]
[2021-11-23] MEDS ORDERED: FUROSEMIDE 40 MG/4 ML INJ (LASIX) ONE (17:29)
[2021-11-23] MEDS ORDERED: ENOXAPARIN 30 MG/0.3 ML (LOVENOX) SYR SC ONE (17:30)
[2021-11-23] MEDS ORDERED: inSUlin (REGULAR) HUMAN 1 UNIT/0.01 ML (CHARGE PER UNIT) SC ONE (17:30)
[2021-11-23] MEDS ORDERED: ENOXAPARIN 60 MG/0.6 ML (LOVENOX) SYR SC ONE (17:30)
[2021-11-23] MEDS ORDERED: CEFEPIME INJECTION 1,000 MG in NS (IVPB) 50 ML IV ONE (17:30)
[2021-11-23] MEDS ORDERED: RT-ALBUTEROL/IPRATROPIUM 3 ML (DUONEB) VIAL INH ONE (17:30)
[2021-11-23] MEDS ORDERED: RT-ALBUTEROL SULF 2.5 MG/3 ML PRE-MIX VIAL INH STA (17:30)
[2021-11-23] MEDS ORDERED: CALCIUM CHLORIDE 1 GM/10 ML (IMS) SYR INJ ONE (17:30)
[2021-11-23] MEDS ORDERED: VANCOMYCIN INJECTION 1,750 MG in NS IV 500 ML 500 ML IV ONE (17:30)
[2021-11-23] MEDS ORDERED: FUROSEMIDE 40 MG/4 ML INJ (LASIX) IVP ONE (17:30)
[2021-11-23] MEDS ORDERED: PROPOFOL DRIP (ICU) 100 ML IV SCH (17:30)
[2021-11-23 17:34] LABS: BILIRUBIN,URINE NEGATIVE (NEGATIVE); CLARITY,URINE CLEAR; COLOR,URINE YELLOW; GLUCOSE, URINE (UA) TRACE (NEGATIVE); KETONES,URINE NEGATIVE (NEGATIVE); LEUKOCYTE ESTERASE ,URINE TRACE (NEGATIVE); NITRITE,URINE NEGATIVE (NEGATIVE); PROTEIN,URINE 3+ (NEGATIVE)
[2021-11-23 17:46] LABS: BAND NEUTROPHILS 4 %; NEUTROPHILS % (MANUAL) 50 %
[2021-11-23 17:47] LABS: LYMPHOCYTES % (MANUAL) 38 %; METAMYELOCYTES % 3 %; MONOCYTES % (MANUAL) 3 %; MYELOCYTES % 2 %; RBC MORPH NORMAL
[2021-11-23] MEDS ORDERED: HEParin 1000 UNIT/ML (10ML VIAL) FOR BOLUS ONE (17:54)
[2021-11-23 17:58] LABS: RBC,URINE 25-50 /HPF
[2021-11-23 17:59] LABS: BACTERIA,URINE FEW /HPF
[2021-11-23 18:03] LABS: SQUAMOUS EPITHELIAL CELL,UR 0-2 /HPF
[2021-11-23] MEDS ORDERED: EPTIFIBATIDE DRIP 100 ML IV ONE (18:11)
[2021-11-23] MEDS ORDERED: EPTIFIBATIDE BOLUS 20 ML IV ONE (18:11)
[2021-11-23] MEDS ORDERED: ASPIRIN 81 MG CHEW (CHILDREN'S ASA) ONE (19:00)
[2021-11-23] MEDS ORDERED: CLOPIDOGREL 300 MG (PLAVIX) TABLET PO ONE (19:00)
[2021-11-23] MEDS ORDERED: ENOXAPARIN 40 MG/0.4 ML (LOVENOX) SYR SC SCH (19:15)
[2021-11-23] MEDS ORDERED: PATIENT MAY USE OWN MEDS, ALL PO SCH (19:15)
--- NOTE | 2021-11-23 20:22 | Tele-ICU Consult ---
History of Present Illness History of Present Illness Date Seen by Provider: Nov 23, 2021 Time Seen by Provider: 20:00 Date of Admission This virtual visit was conducted using real time audio/video. Thank you for asking us to see this patient for respiratory insufficiency, post code at [place]. Recent events: LAD stent, temporary pacemaker PMH: DM2, CKD SH: smoking history N FH: Non-contributory ROS: limited by patient's clinical condition on vent. PE: VSS. O2 sat 98% on vent 100%/+10 HEENT: No obvious masses, adenopathy or JVD. Chest: clear to auscultation. CV: RRR S1 S2 No murmur or added sounds. Abd: Non-tender. Bowel sounds Y. : Unremarkable. [place] Y. 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 No obvious focal findings. Extremities: No edema. Capillary refill < 3 seconds. Skin: unremarkable. Results: Elevated K 6.3, BUN 45, Creat 2.34, WCC 18.5. Decreased . BG: pending. CXR: B infilts. . Available chart/ vitals / labs / images reviewed. Video assessment done using teleICU camera, rest of exam as per RN. A/P: Respiratory insufficiency: Continue present management with vent, Propofol. Add restraints Monitor for increasing oxygenation needs. Critical Care: critically ill patient. Cont. ASA, plavix, Lloyd., Levaphed. Repeat K level pending. Discussed with ROSALBA Romero . Asked RN to reach out to eICU if any questions or concerns later. Time spent with patient/coordination of care with other health professionals (mins): 28 Allergies and Home Medications Allergies Coded Allergies: Sulfa (Sulfonamide Antibiotics) (Verified Allergy, Unknown, 10/15/18) Uncoded Allergies: NSAIDS (Allergy, Unknown, 10/16/16) Home Medications Acetaminophen 500 Mg Tablet, 500 MG PO Q4H PRN for MILD PAIN, (Reported) Atorvastatin Calcium 40 Mg Tablet, 40 MG PO HS, (Reported) Docusate Sodium 100 Mg Capsule, 100 MG PO BID, (Reported) Fluoxetine HCl 20 Mg Capsule, 20 MG PO DAILY, (Reported) Furosemide 20 Mg Tablet, 20 MG PO DAILY, (Reported) Haloperidol 0.5 Mg Tablet, 0.5 MG PO DAILY, (Reported) Insulin Aspart 300 Units/3 Ml Solution, 20 UNITS SQ 0730, (Reported) Insulin Aspart 300 Units/3 Ml Solution, 25 UNITS SQ 1200,1700, (Reported) Insulin Degludec 100 Unit/1 Ml Insuln.pen, 82 UNIT SQ HS, (Reported) Insulin Degludec 100 Unit/1 Ml Insuln.pen, 100 UNIT SQ HS, (Reported) Lactulose 20 Gm/30 Ml Solution, 15 ML PO QID, (Reported) Loratadine 10 Mg Capsule, 10 MG PO DAILY, (Reported) Magnesium Hydroxide 400 Mg/5 Ml Oral.susp, 30 ML PO DAILY PRN for CONSTIPATION, (Reported) Metoprolol Succinate 25 Mg Tab.er.24h, 25 MG PO DAILY Prescribed by: MIKI SPRAGUE on 10/22/16 1304 Olanzapine 10 Mg Tablet, 10 MG PO BID, (Reported) Pantoprazole Sodium 40 Mg Tablet.dr, 40 MG PO DAILY, (Reported) Polyethylene Glycol 3350 17 Gm Powd.pack, 17 GM PO BID, (Reported) Simvastatin 40 Mg Tablet, 40 MG PO DAILY, (Reported) Trihexyphenidyl HCl 2 Mg Tablet, 2 MG PO TID, (Reported) Past Medical/Social/Family Hx Patient Social History Tobacco Use?: No Use of E-Cig and/or Vaping dev: No Substance use?: No Immunizations Up To Date First/Initial COVID19 Vaccinat: YES Second COVID19 Vaccination James: YES Tetanus Booster (TDap): Unknown Date of Pneumonia Vaccine: Aug 21, 2016 Current Status Primary Language: Tongan Preferred Spoken Language: Tongan Review of Systems Constitutional: see HPI EENTM: see HPI Respiratory: see HPI Cardiovascular: see HPI Gastrointestinal: see HPI Genitourinary: see HPI Musculoskeletal: see HPI Skin: see HPI Psychiatric/Neurological: See HPI (See free text) Focused Exam Lactate Level 11/23/21 16:38: Lactic Acid Level 5.21*H Height, Weight, BMI Height: 5'2.00" Weight: 196lbs. 5.0oz. 89.852691pd; 36.13 BMI Method:Estimated Lactic Acid Level Laboratory Tests Test 11/23/21 16:38 Lactic Acid Level 5.21 MMOL/L (0.50-2.00) *H Exam Exam Patient acknowledged, consented, and participated in this virtual visit which was conducted using real time audio/video Vital Signs Date Time Temp Pulse Resp B/P (MAP) Pulse Ox O2 Delivery O2 Flow Rate FiO2 11/23/21 17:39 Ambu Bag 11/23/21 17:35 36.4 60 110/56 100 Mechanical Ventilator 11/23/21 16:55 60 185/81 11/23/21 16:32 36.4 118 210/127 (154) 84 Ambu Bag Height & Weight Height: 5'2.00" Weight: 196lbs. 5.0oz. 89.565719dx; 36.13 BMI Method:Estimated General Appearance: Obese, Severe Distress HEENT: Other (Pupils 3 mm sluggishly reactive symmetric bilaterally; left iris heterochromia) Neck: Full Range of Motion, Normal Inspection Respiratory: Crackles, Respiratory Distress (Severe respiratory distress with an LMA and Ambu bag delivering 100% oxygen breaths and oxygen saturation 84% on arrival), Other (Moderate amount of thin, serosanguineous respiratory secretions present.) Cardiovascular: No Normal Peripheral Pulses (Carotid pulse palpable); Tachycardia Extremity: Slow Capillary Refill, Other (Cyanotic with sluggish capillary refill) Neurologic/Psychiatric: Other (GCS 3 T) Skin: Other (Cyanotic) Results Lab Laboratory Tests 11/23/21 16:38 Assessment/Plan Assessment/Plan See free text Critical Care: Ventilator Management MANUEL MACIAS MD Nov 23, 2021 20:22
[2021-11-23] MEDS ORDERED: NS IV ONE (20:30)
[2021-11-23] MEDS ORDERED: PHARMACY TO DOSE IV SCH (20:30)
[2021-11-23] MEDS: NOREPINEPHRINE 8 MG/250 ML 250 ML IV SCH ×2 (20:33→22:30)
[2021-11-23] MEDS ORDERED: CEFEPIME INJECTION 2,000 MG in NS (IVPB) 50 ML IV SCH (21:00)
[2021-11-23] MEDS: NS IV 1000 ML 1,000 ML IV SCH (21:11)
[2021-11-23 21:17] LABS: ABG OXYGEN SATURATION 97 % (94-100); ABG PCO2 39 MMHG (35-45); ABG PO2 90 MMHG (79-93); ABG TCO2 18.4 MMOL/L (21.0-31.0)
[2021-11-23 21:20] LABS: ABG PH 7.26 (7.37-7.43)
[2021-11-23 21:21] LABS: ALLENS TEST ART LINE; INSPIRED O2 100%; PATIENT TEMP 35.4; VENTILATOR YES
[2021-11-23] MEDS ORDERED: NS IV 1000 ML 2,000 ML ONE (21:39)
[2021-11-23] MEDS ORDERED: CEFEPIME 2 GM/20 ML (MAXIPIME) VIAL ONE (21:41)
[2021-11-23 21:45] VITALS: BP 101/42
[2021-11-23] MEDS: fentaNYL DRIP PRE-MIX 250 ML IV SCH ×2 (21:47→22:28)
[2021-11-23] MEDS ORDERED: ATROPINE INJ 0.4 MG/ML SDV ONE (22:13)
[2021-11-23] MEDS ORDERED: fentaNYL INJ 100 MCG/2 ML AMP ONE (22:23)
[2021-11-23] MEDS: PROPOFOL DRIP (ICU) 100 ML IV SCH (22:29)
[2021-11-23 22:54] VITALS: BP 210/127
--- NOTE | 2021-11-23 23:26 | Anesthesia-Procedure Note ---
Procedures/Interventions Procedure Start/Stop/Diagnosis Date of Procedure: Nov 23, 2021 Start Time: 23:05 Referring Physician: Tomas Preprocedural Diagnosis: Resp Failure, S/P Code Blue Brief History Called by clerical warehouseman to start A-Line on pt with labile blood pressures they were needing to pull femoral sheath tonight. Pt was sedated on vent. Prepped left wrist with chloraprep. #20g arrow cath placed x1 attempt. Good blood flow and waveform on monitor. Secured with sterile op and tape. Report to RN Stop Time: 23:15 Postprocedural Diagnosis: Reps Failure, S/P Code Blue Arterial Line Arterial Line Catheter: 20G Type: Radial Location: Left Procedure: prepped, draped in sterile fashion, good wave-form was obtained, patient tolerated procedure well, no immediate complications, post procedure area cleaned, post procedure dressing applied SIOMARA LOPES CRNA Nov 23, 2021 23:26
[2021-11-23] MEDS ORDERED: RT-ALBUTEROL SULF 2.5 MG/3 ML PRE-MIX VIAL INH PRN (23:30)
--- NOTE | 2021-11-23 23:31 | CARDIAC CATHETERIZATION ---
DATE OF SERVICE: CARDIAC CATHETERIZATION REPORT The patient is a 76-year-old lady who presented to the emergency room after she had been brought in by the EMS from her [facility] where she had collapse. She had pulseless electrical activity, according to the EMS. She was treated with intravenous epinephrine and was placed on Levophed in the emergency room. The electrocardiogram showed a junctional rhythm versus atrial fibrillation with a somewhat slow ventricular response. There was right bundle branch block and left anterior fascicular block. There appeared to be some ST elevation in the inferior leads. She was intubated and put on mechanical ventilation by the emergency room physician. She had presented in extremis and previous records indicated that she had chosen invasive procedures until recently. Because of this presentation and high suspicion of acute myocardial infarction as the cause of her symptoms, we proceeded with emergency cardiac catheterization. DESCRIPTION OF PROCEDURE: She was brought to the cardiac catheterization laboratory. The right groin was prepared and draped in the usual sterile fashion. Lidocaine 1% was used for local anesthesia. Modified Seldinger technique was used to advance a 6-[place]ian sheath into the right femoral artery. A 6-Bel[place]ian JL4 catheter was used for left coronary angiography. A 6-[place]ian JR4 catheter was used for right coronary angiography. A 6-[place]ian pigtail catheter was used for left heart catheterization and left ventricular angiography. Pigtail was used after percutaneous intervention to the left anterior descending artery had been completed. PERCUTANEOUS INTERVENTION OF THE LEFT ANTERIOR DESCENDING: We used a 6-[place]ian JL4 guide catheter. We advanced a BMW wire across the mid left anterior descending artery lesion (approximately 95% stenosis). We were not directly able to advance a stent. We carried out balloon angioplasty with a 2.0 x 20 mm balloon. Subsequently, we were able to advance a 2.5 x 15 mm Skypoint stent with considerable difficulty. We were, finally, able to advance it and the stent was deployed at 18 atmospheres. The stent balloon was removed, and subsequent angiography revealed 0% residual stenosis at the previous site of 95% stenosis and flow throughout the vessel was normal. The patient did receive multiple injections of intravenous epinephrine and continuing Levophed and IV fluids during the procedure because of recurrent hypotension. We also used a 6-Belarusian pigtail catheter to carry out left heart catheterization and left ventricular angiography. TEMPORARY PACEMAKER INSERTION: The patient was exhibiting 2:1 atrioventricular block and intermittent advanced atrioventricular block during the interventional procedure. Accordingly, we put a 5-Belarusian sheath in the right femoral vein and advanced a balloon flotation catheter to the right ventricle. The tip was placed at the base of the right ventricle. The balloon was collapse. The lead was attached to a temporary pacemaker. It was functioning normally. The capture threshold was 0.5 milliamperes, the [place]-apache beats were being sensed at half to 0.5 volts. We set the sensing at 2 volts. We set the heart rate at 60 beats per minute. We set the output at 10 milliamperes. The venous sheath and the leads were sutured in place. The patient was then transferred to the Intensive Care Unit. HEMODYNAMICS: Left ventricular end-diastolic pressure following coronary angiography and coronary intervention was 20 mmHg. There was approximately 30 mm ccii-ir-loni gradient on pullback across the aortic valve. Left ventricular ejection fraction of 45 to 50%. There did not appear to be significant wall motion abnormality in the right anterior oblique projection in which the ventriculogram was performed. CORONARY ANGIOGRAPHY: Left main coronary artery is free of significant disease. Left anterior descending artery had marked calcification in its proximal and mid portions. The mid left anterior descending artery had 95% stenosis that was successfully stented with Skypoint 2.5 x 15 mm stent that was deployed at 18 atmospheres. The left circumflex artery is small and nondominant and did not seem to have significant disease. Right coronary artery is large and dominant and had multiple up to 50% stenoses. CONCLUSIONS: 1. A 95% mid left anterior descending artery stented with Skypoint 2.5 x 15 mm stent. The rest of the coronary vessels have moderate diffuse disease. 2. Well-preserved global left ventricular systolic function with ejection fraction of 45 to 50%. 3. Elevated left ventricular end-diastolic pressure (20 mmHg). 4. A 2:1 and intermittent advanced atrioventricular block, treated with temporary pacemaker insertion. 5. Aortic stenosis with a pyjz-bj-vtmx pressure gradient of approximately 30 mmHg. Job ID: [id number] DocumentID: [id number] Dictated Date: 11/23/2021 19:32:51 Examination Supervisor Date: 11/23/2021 23:31:19 Dictated By: SAGE ZUNIGA MD, MA, FACP, FACC, MTDD
[2021-11-24] MEDS: NS IV 1000 ML 1,000 ML IV SCH ×2 (00:39→05:14)
[2021-11-24] MEDS: NOREPINEPHRINE 8 MG/250 ML 250 ML IV SCH ×8 (00:40→10:24)
[2021-11-24] MEDS ORDERED: NS IV 1000 ML 1,000 ML IV SCH (02:30)
[2021-11-24 02:31] VITALS: BP 114/57
[2021-11-24] MEDS ORDERED: RT-ALBUTEROL SULF 2.5 MG/3 ML PRE-MIX VIAL INH SCH (03:00)
[2021-11-24 03:27] LABS: ABG BASE EXCESS -12.6 MMOL/L (-2.5-2.5); ABG OXYGEN SATURATION 93 % (94-100); ABG PCO2 51 MMHG (35-45); ABG PO2 76 MMHG (79-93); ABG TCO2 17.2 MMOL/L (21.0-31.0)
[2021-11-24 03:37] LABS: ALLENS TEST ART LINE; INSPIRED O2 70%; PATIENT TEMP 35.9; VENTILATOR YES
[2021-11-24 03:40] LABS: BASOPHILS # (AUTO) 0.1 10^3/uL (0.0-0.1); BASOPHILS % (AUTO) 0 % (0-10); EOSINOPHILS % (AUTO) 0 % (0-10); HEMATOCRIT 26 % (35-52); HEMOGLOBIN 7.7 g/dL (11.5-16.0); LYMPHOCYTES # (AUTO) 0.9 10^3/uL (1.0-4.0); LYMPHOCYTES % (AUTO) 4 % (12-44); MEAN CORPUSCULAR HEMOGLOBIN 30 pg (25-34); MEAN CORPUSCULAR HGB CONC 30 g/dL (32-36); MEAN CORPUSCULAR VOLUME 100 fL (80-99); MEAN PLATELET VOLUME 10.4 fL (9.0-12.2); MONOCYTES # (AUTO) 2.2 10^3/uL (0.0-1.0); MONOCYTES % (AUTO) 9 % (0-12); NEUTROPHILS # (AUTO) 21.8 10^3/uL (1.8-7.8); NEUTROPHILS % (AUTO) 86 % (42-75); PLATELET COUNT 245 10^3/uL (130-400); WHITE BLOOD COUNT 25.4 10^3/uL (4.3-11.0)
[2021-11-24 03:46] LABS: ALBUMIN 2.4 GM/DL (3.2-4.5)
[2021-11-24 03:47] LABS: CALCIUM 7.1 MG/DL (8.5-10.1)
[2021-11-24 03:48] LABS: TOTAL PROTEIN 4.8 GM/DL (6.4-8.2)
[2021-11-24 03:50] LABS: BILIRUBIN,TOTAL 0.6 MG/DL (0.1-1.0)
[2021-11-24 03:51] LABS: PHOSPHORUS 6.2 MG/DL (2.3-4.7); POTASSIUM 7.8 MMOL/L (3.6-5.0)
[2021-11-24 03:52] LABS: CREATININE SERUM 2.35 MG/DL (0.60-1.30)
[2021-11-24 03:55] LABS: MAGNESIUM 1.8 MG/DL (1.6-2.4)
[2021-11-24] MEDS ORDERED: CALCIUM GLUC. 10% 4.65 MEQ/10 ML VIAL IV ONE (04:00)
[2021-11-24] MEDS ORDERED: inSUlin (REGULAR) HUMAN 1 UNIT/0.01 ML (CHARGE PER UNIT) IV ONE (04:00)
[2021-11-24] MEDS ORDERED: DEXTROSE 50% 50 ML (IMS) SYR IV ONE (04:00)
[2021-11-24] MEDS ORDERED: RT-ALBUTEROL/IPRATROPIUM 3 ML (DUONEB) VIAL ONE (04:07)
[2021-11-24] MEDS ORDERED: inSUlin (REGULAR) HUMAN 1 UNIT/0.01 ML (CHARGE PER UNIT) ONE (04:09)
[2021-11-24] MEDS ORDERED: SOD POLYSTERENE 15 GM/60 ML (KAYEXALATE) UNIT DOSE ONE (04:10)
[2021-11-24] MEDS ORDERED: CALC GLUC 1 GM/100 ML IVPB 100 ML IV ONE (04:10)
[2021-11-24] MEDS ORDERED: SODIUM BICARB 8.4% 50 MEQ/50 ML VIAL ONE ×2 (04:10→04:28)
[2021-11-24] MEDS ORDERED: DEXTROSE 50% 50 ML (IMS) SYR ONE (04:10)
[2021-11-24] MEDS ORDERED: SODIUM BICARB 8.4% 50 MEQ/50 ML VIAL IV ONE (04:15)
[2021-11-24] MEDS: PROPOFOL DRIP (ICU) 100 ML IV SCH ×2 (04:58→10:39)
[2021-11-24 05:36] LABS: CALCIUM 7.3 MG/DL (8.5-10.1)
[2021-11-24 05:37] LABS: POTASSIUM 7.2 MMOL/L (3.6-5.0)
[2021-11-24 05:40] LABS: CREATININE SERUM 2.41 MG/DL (0.60-1.30)
[2021-11-24] MEDS ORDERED: VASOPRESSIN INJECTION 20 UNIT in NS (IVPB) 100 ML IV SCH (05:45)
[2021-11-24] MEDS ORDERED: NS (IVPB) 100 ML ONE (05:50)
[2021-11-24] MEDS ORDERED: VASOPRESSIN INJECTION 20 UNIT/ML VIAL ONE (05:50)
[2021-11-24] MEDS ORDERED: inSUlin ASPART (NovoLOG) 1 UNIT/0.01 ML (CHARGE PER UNIT) SQ SCH (06:00)
[2021-11-24] MEDS ORDERED: MAGNESIUM 1 GM/100 ML IVPB 100 ML IV SCH ×2 (06:00)
[2021-11-24] MEDS ORDERED: POTASSIUM CL 10MEQ/50ML IVPB 50 ML IV SCH ×2 (06:00)
[2021-11-24] MEDS ORDERED: CEFEPIME 1,000 MG/NS 50 ML IVPB IV SCH ×2 (06:00)
[2021-11-24] MEDS ORDERED: KCL 20 MEQ TAB (K-DUR) PO SCH ×2 (06:00)
[2021-11-24] MEDS ORDERED: SOD POLYSTERENE 15 GM/60 ML (KAYEXALATE) UNIT DOSE PO SCH (06:00)
[2021-11-24] MEDS: RT-ALBUTEROL/IPRATROPIUM 3 ML (DUONEB) VIAL INH SCH ×2 (06:40→10:10)
--- NOTE | 2021-11-24 06:42 | Occ Therapy Progress Note ---
Therapy Progress Note OT orders received. Pt is currently intubated. OT to monitor pt's status and will initiate treatment when pt is medically stable and able to actively participate in skilled therapy. WAQAR LORA Nov 24, 2021 06:42
--- NOTE | 2021-11-24 07:13 | Diagnostic Imaging Report ---
EXAMINATION: Chest 1 view HISTORY: Pneumonia. Follow-up. COMPARISON: 11/23/2021. FINDINGS: Stable configuration of the endotracheal tube, enteric tube, and right internal jugular central line. Worsening consolidative and hazy opacities are seen throughout the lungs with particular increased opacities throughout the left hemithorax. No large pleural effusion or pneumothorax. The cardiac silhouette is obscured. IMPRESSION: 1. Worsening widespread consolidative opacities throughout both lungs. 2. Stable support devices. Dictated by: Dictated on workstation # [id number]
--- NOTE | 2021-11-24 07:20 | Physical Therapy Progress Note ---
Therapy Progress Note Due to patients current medical status and poor prognosis patient is being d/c from services at this time. PT will require new orders for physical therapy. ANTON KOWALSKI PT Nov 24, 2021 07:20
[2021-11-24] MEDS ORDERED: LIDOCAINE 1% INJ 50 ML (XYLOCAINE) VIAL IJ ONE (07:21)
[2021-11-24] MEDS ORDERED: EPINEPHrine 0.1 MG/ML 10 ML (HOSPIRA) SYR IJ ONE (07:21)
[2021-11-24] MEDS ORDERED: HEParin (CATH LAB) 2,000 UNIT/1,000 ML BAG IV ONE (07:21)
[2021-11-24] MEDS ORDERED: CALCIUM CHLORIDE 1 GM/10 ML (IMS) SYR INJ ONE (07:21)
[2021-11-24] MEDS ORDERED: NOREPINEPHRINE 8 MG/250 ML 250 ML IV ONE ×2 (07:48→07:49)
--- NOTE | 2021-11-24 07:57 | Tele-ICU Progress Note ---
Subjective Date Seen by a Provider: Nov 24, 2021 Time Seen by a Provider: 07:56 Subjective/Events-last exam This patient who lives at long-term with multiple medical problems apparently had a cardiac arrest and revived and she is taken to the ER from where she went to cardiac [facility] [employer] and had LAD stented. Postprocedure she is back on mechanical ventilation to the ICU but her neurological status is very poor and unresponsive. She is a posturing get sometimes. She does not have any corneal or conjunctival reflexes. When I did talk to this nurse this a.m. she is on a 2 pressors including Levophed and vasopressin and subsequently required Donnell- Synephrine. Meanwhile patient's family apparently want to make her a comfort care. She was also bleeding via ET tube. Hence I held aspirin, Plavix and Lovenox. Her hemoglobin is already down to 7. Sepsis Event Evaluation Height, Weight, BMI Height: 5'2.00" Weight: 196lbs. 5.0oz. 89.735605bu; 37.40 BMI Method:Estimated Focused Exam Lactate Level 11/24/21 01:10: Lactic Acid Level 2.16*H 11/24/21 03:17: Lactic Acid Level 2.18*H 11/24/21 05:07: Lactic Acid Level 3.37*H Lactic Acid Level Laboratory Tests Test 11/24/21 05:07 Lactic Acid Level 3.37 MMOL/L (0.50-2.00) *H Exam Exam Patient acknowledged, consented, and participated in this virtual visit which was conducted using real time audio/video Vital Signs Date Time Temp Pulse Resp B/P (MAP) Pulse Ox O2 Delivery O2 Flow Rate FiO2 11/24/21 07:28 36.2 11/24/21 07:00 60 11/24/21 06:35 100 11/24/21 06:00 59 12 100 Mechanical Ventilator 100.00 130/52 11/24/21 05:55 Mechanical Ventilator 100.00 11/24/21 05:52 118/49 11/24/21 05:52 60 118/49 11/24/21 05:15 35.1 11/24/21 05:00 77 13 90 Mechanical Ventilator 70.00 93/45 11/24/21 04:58 60 97/45 11/24/21 04:42 70 11/24/21 04:00 90 Mechanical Ventilator 70 11/24/21 04:00 63 18 96 Mechanical Ventilator 70.00 111/44 11/24/21 03:55 94/44 11/24/21 03:00 59 12 96 Mechanical Ventilator 70.00 108/51 11/24/21 02:31 60 16 94 70 11/24/21 02:19 58 85/44 11/24/21 02:00 59 12 94 Mechanical Ventilator 70.00 107/50 11/24/21 01:00 58 15 92 Mechanical Ventilator 70.00 109/49 11/24/21 01:00 60 11/24/21 00:40 35.9 59 16 113/46 92 Mechanical Ventilator 70.00 11/24/21 00:40 59 106/45 11/24/21 00:00 60 14 92 Mechanical Ventilator 70.00 113/41 11/24/21 00:00 91 Mechanical Ventilator 70 11/24/21 00:00 70 11/23/21 23:00 11/23/21 23:00 60 89/40 91 Mechanical Ventilator 70.00 139/57 11/23/21 22:54 36.4 118 87 100 11/23/21 22:30 133/54 11/23/21 22:30 Mechanical Ventilator 70.00 11/23/21 22:29 119/52 11/23/21 22:00 60 20 92/43 99 Mechanical Ventilator 100.00 90/36 11/23/21 21:45 60 22 100 100 11/23/21 21:00 60 21 101/42 100 Mechanical Ventilator 100.00 129/56 11/23/21 20:45 60 17 96/52 100 Mechanical Ventilator 100.00 131/56 11/23/21 20:33 60 144/59 11/23/21 20:30 60 21 111/86 99 Mechanical Ventilator 100.00 129/56 11/23/21 20:15 87/45 Mechanical Ventilator 100.00 135/58 11/23/21 20:02 60 11/23/21 19:45 100 11/23/21 19:39 35.3 60 22 98/65 90 Mechanical Ventilator 100.00 11/23/21 17:39 Ambu Bag 11/23/21 17:35 36.4 60 110/56 100 Mechanical Ventilator 11/23/21 16:55 60 185/81 11/23/21 16:32 36.4 118 210/127 (154) 84 Ambu Bag I & O 11/24/21 07:00 Intake Total 6285.89 ml Output Total 255 ml Balance 6030.89 ml Height & Weight Height: 5'2.00" Weight: 196lbs. 5.0oz. 89.977674yh; 37.40 BMI Method:Estimated General Appearance: Obese, Severe Distress HEENT: Other (Pupils 3 mm sluggishly reactive symmetric bilaterally; left iris heterochromia) Neck: Full Range of Motion, Normal Inspection Respiratory: Crackles, Respiratory Distress (Severe respiratory distress with an LMA and Ambu bag delivering 100% oxygen breaths and oxygen saturation 84% on arrival), Other (Moderate amount of thin, serosanguineous respiratory secretions present.) Cardiovascular: No Normal Peripheral Pulses (Carotid pulse palpable); Tachycardia Capillary Refill: Greater Than 3 Seconds Extremity: Slow Capillary Refill, Other (Cyanotic with sluggish capillary refill) Neurologic/Psychiatric: Other (GCS 3 T) Skin: Other (Cyanotic) Other comments PE PER RN Results Lab Laboratory Tests 11/23/21 16:38 11/24/21 03:17 11/24/21 05:07 Assessment/Plan Assessment/Plan . 1. Status post cardiac arrest due to acute coronary syndrome. 2. Acute hypoxic respiratory failure secondary to above 3. History of acute on chronic kidney disease. 4. Cardiogenic shock 5. Anemia due to bleeding. 6. Anoxic encephalopathy. Recommendations 1. Continue mechanical ventilatory support and discussed with the RT. 2. Hold off aspirin Plavix and Lovenox until seen by cardiology and primary care to discuss with patient's family regarding her poor outcome 3. Continue vasopressin, Levophed and add Donnell-Synephrine. 4. Awaiting from family for decision regarding goals of therapy.. 5. Her prognosis is grave. Critical Care: Ventilator Management Time spent with patient (mins): 35 SKY HOWELL MD Nov 24, 2021 07:57
[2021-11-24] MEDS ORDERED: PANTOPRAZOLE 40 MG (PROTONIX) VIAL IV SCH (09:00)
[2021-11-24] MEDS ORDERED: CLOPIDOGREL 75 MG (PLAVIX) TABLET PO SCH (09:00)
[2021-11-24] MEDS ORDERED: ASPIRIN 81 MG CHEW (CHILDREN'S ASA) PO SCH (09:00)
[2021-11-24] MEDS ORDERED: ENOXAPARIN 30 MG/0.3 ML (LOVENOX) SYR SC SCH (09:00)
[2021-11-24] MEDS ORDERED: PHENYLEPHRINE INJECTION 20 MG in NS (IVPB) 250 ML IV SCH (10:15)
[2021-11-24 10:39] VITALS: BP 90/48
[2021-11-24] MEDS ORDERED: morphine INJ 4 MG/ML 1 ML (VIAL/SYRINGE) IV PRN (11:15)
[2021-11-24] MEDS ORDERED: LORazepam INJ 2 MG/ML (ATIVAN) VIAL IVP PRN (11:15)
[2021-11-24] MEDS ORDERED: BISACODYL 10 MG SUPP (DULCOLAX) PR PRN (11:15)
[2021-11-24] MEDS ORDERED: RT-ALBUTEROL/IPRATROPIUM 3 ML (DUONEB) VIAL INH PRN (11:15)
[2021-11-24] MEDS ORDERED: GLYCOPYRROLATE 0.2 MG/ML (ROBINUL) 2 ML VIAL IV PRN (11:15)
[2021-11-24] MEDS ORDERED: ONDANSETRON 4 MG/2 ML (SDV) Z0FRAN IVP PRN (11:15)
[2021-11-24] MEDS ORDERED: SALIVA STIMULANT MOUTH SPRAY (BIOTENE) 1.5 OZ MM PRN (11:15)
[2021-11-24] MEDS ORDERED: PROMETHAZINE INJ 25 MG/ML (PHENERGAN) AMP IVP PRN (11:15)
[2021-11-24] MEDS ORDERED: ARTIFICAL TEARS 0.4 ML UNIT DOSE (REFRESH PLUS) OU PRN (11:15)
[2021-11-24] MEDS ORDERED: ACETAMINOPHEN 650 MG SUPP (TYLENOL) PR PRN (11:15)
[2021-11-24] MEDS ORDERED: ONDA-105 PO (12:05)
[2021-11-24] MEDS ORDERED: OLAN20TA34 PO (12:05)
[2021-11-24] MEDS ORDERED: METO-333 PO (12:05)
[2021-11-24] MEDS ORDERED: BISA10SU8 RC (12:05)
[2021-11-24] MEDS ORDERED: LORA10TA7 PO (12:05)
[2021-11-24] MEDS ORDERED: [UNRECOGNIZED DRUG - CODE] TP (12:05)
[2021-11-24] MEDS ORDERED: CARB15DR OD (12:05)
[2021-11-24] MEDS ORDERED: ACET-2422 PO (12:05)
[2021-11-24] MEDS ORDERED: GLUC1KIT IJ (12:05)
[2021-11-24] MEDS ORDERED: HALO5TAB PO (12:05)
[2021-11-24] MEDS ORDERED: DEXT37.54 PO (12:05)
--- NOTE | 2021-11-24 15:04 | Progress Note - Cardiology ---
Cardiology SOAP Progress Note Subjective: Unresponsive Objective: I&O/Vital Signs 11/24/21 11/24/21 11/24/21 11/24/21 03:00 03:55 04:00 04:00 Pulse 59 63 Resp 12 18 B/P (MAP) 94/44 108/51 111/44 Pulse Ox 96 96 90 O2 Delivery Mechanical Ventilator Mechanical Ventilator Mechanical Ventilator O2 Flow Rate 70.00 70.00 FiO2 70 11/24/21 11/24/21 11/24/21 11/24/21 04:42 04:58 05:00 05:15 Temp 35.1 Pulse 60 77 Resp 13 B/P (MAP) 97/45 93/45 Pulse Ox 90 O2 Delivery Mechanical Ventilator O2 Flow Rate 70.00 FiO2 70 11/24/21 11/24/21 11/24/21 11/24/21 05:52 05:52 05:55 06:00 Pulse 60 59 Resp 12 B/P (MAP) 118/49 118/49 130/52 Pulse Ox 100 O2 Delivery Mechanical Ventilator Mechanical Ventilator O2 Flow Rate 100.00 100.00 11/24/21 11/24/21 11/24/21 11/24/21 06:35 07:00 07:00 07:28 Temp 36.2 Pulse 59 60 Resp 8 B/P (MAP) 109/52 Pulse Ox 99 O2 Delivery Mechanical Ventilator O2 Flow Rate 100.00 FiO2 100 11/24/21 11/24/21 11/24/21 11/24/21 08:00 08:00 08:11 08:12 Pulse 58 Resp 11 B/P (MAP) 81/48 81/48 107/50 Pulse Ox 99 90 O2 Delivery Mechanical Ventilator Mechanical Ventilator O2 Flow Rate 100.00 FiO2 70 11/24/21 11/24/21 11/24/21 11/24/21 08:33 09:00 10:00 10:23 Pulse 60 60 Resp 15 11 B/P (MAP) 76/32 94/48 86/47 Pulse Ox 99 100 O2 Delivery Mechanical Ventilator Mechanical Ventilator O2 Flow Rate 100.00 100.00 FiO2 100 11/24/21 11/24/21 11/24/21 11/24/21 10:24 10:39 11:00 12:00 Temp 36.0 Pulse 60 60 B/P (MAP) 76/32 90/48 86/47 Pulse Ox 100 O2 Delivery Mechanical Ventilator O2 Flow Rate 100.00 3/3/22 23:59 Intake Total 2155.89 ml Output Total 200 ml Balance 1955.89 ml Weight (Pounds): 196 Weight (Ounces): 5.0 Weight (Calculated Kilograms): 89.691098 Constitutional: other (unresponsive, on mech vent, pupils sluggish to non- reactive) Respiratory: other (on mech vent, fair to good air entry) Cardiovascular: irregularly irregular, systolic murmur (soft GIDEON at card base) Gastrointestional: distended; No guarding, No rebound; audible bowel sounds Extremities: other (mild, bilateral edema); No clubbing, No cyanosis Neurologic/Psychiatric: other (unresponsive) Skin: No rash on exposed areas, No ulcerations on exposed areas Results/Procedures: Labs Laboratory Tests 11/23/21 16:38: White Blood Count 18.5H, Red Blood Count 3.92, Hemoglobin 11.8, Hematocrit 39, Mean Corpuscular Volume 100H, Mean Corpuscular Hemoglobin 30, Mean Corpuscular Hemoglobin Concent 30L, Red Cell Distribution Width 13.9, Platelet Count 220, Mean Platelet Volume 10.7, Immature Granulocyte % (Auto) 8, Neutrophils (%) (Auto) 52, Lymphocytes (%) (Auto) 28, Monocytes (%) (Auto) 8, Eosinophils (%) ( Auto) 2, Basophils (%) (Auto) 1, Neutrophils # (Auto) 9.7H, Lymphocytes # (Auto) 5.2H, Monocytes # (Auto) 1.5H, Eosinophils # (Auto) 0.4H, Basophils # (Auto) 0.1, Immature Granulocyte # (Auto) 1.5H, Neutrophils % (Manual) 50, Lymphocytes % (Manual) 38, Monocytes % (Manual) 3, Metamyelocytes % 3, Myelocytes % 2, Band Neutrophils 4, Blood Morphology Comment NORMAL, Prothrombin Time 15.9H, INR Comment 1.2, Activated Partial Thromboplast Time 44H, D-Dimer 9.33H, Urine Color YELLOW, Urine Clarity CLEAR, Urine pH 6.0, Urine Specific [place] 1.025H, Urine Protein 3+H, Urine Glucose (UA) TRACEH, Urine Ketones NEGATIVE, Urine Nitrite NEGATIVE, Urine Bilirubin NEGATIVE, Urine Urobilinogen 1.0, Urine Leukocyte Esterase TRACEH, Urine RBC (Auto) 3+H, Urine RBC 25-50H, Urine WBC 2-5, Urine Squamous Epithelial Cells 0-2, Urine Crystals NONE, Urine Bacteria FEWH, Urine Casts NONE, Urine Mucus NEGATIVE, Urine Culture Indicated YES, Sodium Level 134L , Potassium Level 6.3H, Chloride Level 105, Carbon Dioxide Level 14L, Anion Gap 15H, Blood Urea Nitrogen 45H, Creatinine 2.34H, Estimat Glomerular Filtration Rate 21, BUN/Creatinine Ratio 19, Glucose Level 223H, Lactic Acid Level 5.21*H, Calcium Level 8.4L, Corrected Calcium 9.0, Total Bilirubin 0.5, Aspartate Amino Transf (AST/SGOT) 29, Alanine Aminotransferase (ALT/SGPT) 21, Alkaline Phosphatase 114, Troponin I 0.087H, B-Type Natriuretic Peptide 838.6H, Total Protein 7.1, Albumin 3.3, Procalcitonin 0.26H 11/23/21 16:52: Glucometer 266H 11/23/21 17:10: Influenza Type A (RT-PCR) Not Detected, Influenza Type B (RT-PCR) Not Detected, SARS-CoV-2 RNA (RT-PCR) Not Detected 11/23/21 21:06: Lactic Acid Level 2.33*H, Blood Gas Puncture Site ARTLINE, Blood Gas Patient Temperature 35.4, Arterial Blood pH 7.26*L, Arterial Blood Partial Pressure CO2 39, Arterial Blood Partial Pressure O2 90, Arterial Blood HCO3 17*L, Arterial Blood Total CO2 18.4L, Arterial Blood Oxygen Saturation 97, Arterial Blood Base Excess -9.0L, Jay Test ART LINE, Blood Gas Ventilator Setting YES, Blood Gas Inspired Oxygen 100% 11/23/21 23:00: Lactic Acid Level 2.23*H 11/24/21 01:10: Lactic Acid Level 2.16*H 11/24/21 03:17: Lactic Acid Level 2.18*H, White Blood Count 25.4H, Red Blood Count 2.56L, Hemoglobin 7.7#L, Hematocrit 26L, Mean Corpuscular Volume 100H, Mean Corpuscular Hemoglobin 30, Mean Corpuscular Hemoglobin Concent 30L, Red Cell Distribution Width 14.0, Platelet Count 245, Mean Platelet Volume 10.4, Immature Granulocyte % (Auto) 1, Neutrophils (%) (Auto) 86H, Lymphocytes (%) (Auto) 4L, Monocytes (%) (Auto) 9, Eosinophils (%) (Auto) 0, Basophils (%) (Auto) 0, Neutrophils # (Auto) 21.8H, Lymphocytes # (Auto) 0.9L, Monocytes # (Auto) 2.2H, Eosinophils # (Auto) 0.0, Basophils # (Auto) 0.1, Immature Granulocyte # (Auto) 0.4H, Blood Gas Puncture Site LEFT RADIAL, Blood Gas Patient Temperature 35.9, Arterial Blood pH 7.10*L, Arterial Blood Partial Pressure CO2 51H, Arterial Blood Partial Pressure O2 76L, Arterial Blood HCO3 16*L, Arterial Blood Total CO2 17.2L, Arterial Blood Oxygen Saturation 93L, Arterial Blood Base Excess -12.6L, Jay Test ART LINE, Blood Gas Ventilator Setting YES, Blood Gas Inspired Oxygen 70%, Sodium Level 131L, Potassium Level 7.8#*H, Chloride Level 112H, Carbon Dioxide Level 12L, Anion Gap 7, Blood Urea Nitrogen 44H, Creatinine 2.35H, Estimat Glomerular Filtration Rate 21, BUN/Creatinine Ratio 19, Glucose Level 186H, Calcium Level 7.1L, Corrected Calcium 8.4L, Phosphorus Level 6.2H, Magnesium Level 1.8, Total Bilirubin 0.6, Aspartate Amino Transf (AST/SGOT) 39H, Alanine Aminotransferase (ALT/SGPT) 23, Alkaline Phosphatase 88, Total Protein 4.8L, Albumin 2.4L 11/24/21 05:07: Lactic Acid Level 3.37*H, Sodium Level 136, Potassium Level 7.2*H, Chloride Level 110H, Carbon Dioxide Level 17L, Anion Gap 9, Blood Urea Nitrogen 44H, Creatinine 2.41H, Estimat Glomerular Filtration Rate 20, BUN/Creatinine Ratio 18, Glucose Level 246H, Calcium Level 7.3L 11/24/21 08:25: Lactic Acid Level 3.72*H Microbiology 11/23/21 Blood Culture - Preliminary, Resulted Gram Positive Cocci in Cluster Laboratory Tests 11/23/21 16:38 11/24/21 03:17 11/24/21 05:07 A/P: Assessment: Ac NSTEMI and cardiac arrest on 11/23/21 - Emergency card cath on 11/23/21: 95% mid LAD successfully stented with Skypoint 2.5x15 mmstent, mod diffuse disease of a dominant RCA, mild plaques in a nondominant LCX, LVEF 45-50%, at least mod (30 mm pressure gradient on pull back) - Temporary pacemaker on 11/23/21 to treat 2:1 AV block and intermittent advanced AV block Ac renal failure and hyperkalemia - managed by Dr Saucedo and the ICU service Resuscitation status unknown at presentation. Now we have been informed of DNR status by her POA Shock, probably cardiogenic and septic, despite therapy with vasopressors H/o dementia Dismal prognosis H/o HLP and DM II - managed by Dr Sauceod Plan: I spoke in detail with Dr Saucedo last night who was on the Hospitalist service and also knew the patient well from previous admissions Service was transferred to Dr Saucedo last night Management of renal failure and hyperkalemia and mech vent and unresponsiveness has been with the Hospitalist and EICU services Prognosis appears poor/dismal because of lack of hemodynamic response to multiple cardiac interventions (see above) Clinical Quality Measures Type of Care: Type of Care: Comfort Measures SAGE ZUNIGA MD FACP FAC CCDS Nov 24, 2021 15:04
[2021-11-24] MEDS ORDERED: VANCOMYCIN 1250 MG/NS 250 ML IVPB IV SCH ×2 (17:00)
--- NOTE | 2021-11-24 21:29 | Discharge Summary ---
Discharge Summary Hospital Course Problems/Dx: (1) Cardiopulmonary arrest with successful resuscitation Status: Acute (2) NSTEMI (non-ST elevation myocardial infarction) Status: Acute (3) Myocardial infarction involving left anterior descending (LAD) coronary artery Status: Acute (4) S/P coronary artery stent placement Status: Acute (5) Multiorgan failure Status: Acute (6) Cardiogenic shock Status: Acute (7) Ischemic cardiomyopathy Status: Acute (8) LUIS (acute kidney injury) Status: Acute (9) Hyperkalemia Status: Acute (10) Lactic acidosis Status: Acute (11) Acute respiratory failure with hypoxia Status: Acute (12) Endotracheally intubated Status: Acute (13) Poor prognosis Status: Acute (14) Goals of care, counseling/discussion Status: Acute Hospital Course Date of Admission: Nov 23, 2021 at 19:59 Admission Diagnosis: Cardiac arrest Family Physician/Provider: Rodrick Zaldivar DO Date of Discharge: 11/24/21 Discharge Diagnosis: Cardiac arrest, multiorgan failure, CAD, NSTEMI, cardiogenic shock Hospital Course: Lea Phan was 76 year old female with dementia who presented from [facility] after suffering a cardiac arrest. EMS was called and resuscitation was performed. She was able to be revived. She was taken to the nitriles lab technician with concern for CA. She was found to have a near complete occlusion of her LAD which was stented. She was admitted to the ICU. She was intubated and on the ventilator with high ventilator requirements. She was requiring multiple pressors. She had severe acute renal failure with hyperkalemia. She remained anuric. Due to worsening status despite full supportive care, she was transitioned to comfort measures only status after a discussion with her family. She subsequently at 1133 on 11/24/2021. Labs and Pending Lab Test: Laboratory Tests 11/23/21 23:00: Lactic Acid Level 2.23*H 11/24/21 01:10: Lactic Acid Level 2.16*H 11/24/21 03:17: Lactic Acid Level 2.18*H, White Blood Count 25.4H, Red Blood Count 2.56L, Hemoglobin 7.7#L, Hematocrit 26L, Mean Corpuscular Volume 100H, Mean Corpuscular Hemoglobin 30, Mean Corpuscular Hemoglobin Concent 30L, Red Cell Distribution Width 14.0, Platelet Count 245, Mean Platelet Volume 10.4, Immature Granulocyte % (Auto) 1, Neutrophils (%) (Auto) 86H, Lymphocytes (%) (Auto) 4L, Monocytes (%) (Auto) 9, Eosinophils (%) (Auto) 0, Basophils (%) (Auto) 0, Neutrophils # (Auto) 21.8H, Lymphocytes # (Auto) 0.9L, Monocytes # (Auto) 2.2H, Eosinophils # (Auto) 0.0, Basophils # (Auto) 0.1, Immature Granulocyte # (Auto) 0.4H, Blood Gas Puncture Site LEFT RADIAL, Blood Gas Patient Temperature 35.9, Arterial Blood pH 7.10*L, Arterial Blood Partial Pressure CO2 51H, Arterial Blood Partial Pressure O2 76L, Arterial Blood HCO3 16*L, Arterial Blood Total CO2 17.2L, Arterial Blood Oxygen Saturation 93L, Arterial Blood Base Excess -12.6L, Jay Test ART LINE, Blood Gas Ventilator Setting YES, Blood Gas Inspired Oxygen 70%, Sodium Level 131L, Potassium Level 7.8#*H, Chloride Level 112H, Carbon Dioxide Level 12L, Anion Gap 7, Blood Urea Nitrogen 44H, Creatinine 2.35H, Estimat Glomerular Filtration Rate 21, BUN/Creatinine Ratio 19, Glucose Level 186H, Calcium Level 7 .1L, Corrected Calcium 8.4L, Phosphorus Level 6.2H, Magnesium Level 1.8, Total Bilirubin 0.6, Aspartate Amino Transf (AST/SGOT) 39H, Alanine Aminotransferase (ALT/SGPT) 23, Alkaline Phosphatase 88, Total Protein 4.8L, Albumin 2.4L 11/24/21 05:07: Lactic Acid Level 3.37*H, Sodium Level 136, Potassium Level 7.2*H, Chloride Level 110H, Carbon Dioxide Level 17L, Anion Gap 9, Blood Urea Nitrogen 44H, Creatinine 2.41H, Estimat Glomerular Filtration Rate 20, BUN/Creatinine Ratio 18, Glucose Level 246H, Calcium Level 7.3L 11/24/21 08:25: Lactic Acid Level 3.72*H Microbiology 11/23/21 Blood Culture - Preliminary, Resulted No growth 11/23/21 MRSA Screen - Final, Complete MRSA not isolated 11/23/21 Urine Culture - Preliminary, Resulted Proteus mirabilis Home Meds Active Reported Gluco Burst (Dextrose) 37.5 Gm Gel..gram. 37.5 Gm PO UD PRN GIVE EVERY 15 MINUTES, RECHECK BS IN 15 MINUTES IF BS NOT RISING GIVE ANOTHER PACKET Refresh Tears (Carboxymethylcellulose Sodium) 15 Ml Drops 1 Drop OD UD PRN Hydrocream (Hydrocortisone) 28.4 Gm Cream..g. 1 Applic TP Q4H PRN Metoprolol Tartrate 25 Mg Tablet 25 Mg PO DAILY HOLD FOR BP LES THAN 100/60 AND PULSE LESS THAN 60 Ondansetron HCl 4 Mg Tablet 4 Mg PO Q8H PRN Glucagon Emergency Kit (Glucagon,Human Recombinant) 1 Mg/Kit Soln 1 Mg IJ UD PRN Bisacodyl 10 Mg Supp.rect 10 Mg RC DAILY PRN Olanzapine 20 Mg Tablet 10 Mg PO BID TAKES OF A 20MG TAB Haloperidol 5 Mg Tablet 2.5 Mg PO DAILY TAKES OF A 5MG TAB Loratadine 10 Mg Tablet 10 Mg PO DAILY Acetaminophen ER (Acetaminophen) 650 Mg Tablet.er 650 Mg PO Q4H PRN Simvastatin 40 Mg Tablet 40 Mg PO HS Miralax (Polyethylene Glycol 3350) 17 Gm Powd.pack 17 Gm PO BID Prozac (Fluoxetine HCl) 20 Mg Capsule 20 Mg PO DAILY Milk of Magnesia (Magnesium Hydroxide) 400 Mg/5 Ml Oral.susp 30 Ml PO DAILY PRN Lactulose 20 Gm/30 Ml Solution 30 Ml PO BID Colace (Docusate Sodium) 100 Mg Capsule 100 Mg PO BID Protonix (Pantoprazole Sodium) 40 Mg Tablet.dr 40 Mg PO DAILY Tresiba Flextouch U-100 (Insulin Degludec) 100 Unit/1 Ml Insuln.pen 40 Unit SQ HS NOTIFY PHYSICIAN IF BS IS LESS THAN 70 OR GREATER THAN 400 Novolog Flexpen (Insulin Aspart) 300 Units/3 Ml Solution 22 Units SQ AC NOTIFY PHYSICIAN IF BS IS LESS THAN 70 OR GREATER THAN 400 Novolog Flexpen (Insulin Aspart) 300 Units/3 Ml Solution Units SQ AC GETS 22 UNITS PLUS THE FOLLOWING CORRECTION SCALE: 201-250=3 UNITS 251-300=5 UNITS 301-350=7 UNITS 351-400=9 UNITS Assessment/Pt Instructions Patient Discharge Physical Examination Vital Signs Vital Signs Date Time Temp Pulse Resp B/P (MAP) Pulse Ox O2 Delivery O2 Flow Rate FiO2 11/24/21 12:00 36.0 11/24/21 11:00 60 100 Mechanical Ventilator 100.00 86/47 11/24/21 10:00 11 11/24/21 08:33 100 General Appearance: No Apparent Distress, Obese, Other (intubated and sedated) Respiratory: Decreased Breath Sounds, Other (intubated and mechanically ventilated) Cardiovascular: Regular Rate, Rhythm, No Murmur Gastrointestinal: Normal Bowel Sounds, Soft Extremity: Normal Inspection, Pedal Edema Skin: Cool, Pallor Neurologic/Psychiatric: Other (unresponsive, sedated) Allergies: Coded Allergies: Sulfa (Sulfonamide Antibiotics) (Verified Allergy, Unknown, 10/15/18) Uncoded Allergies: NSAIDS (Allergy, Unknown, 10/16/16) Discharge Summary Date of Admission Nov 23, 2021 at 19:59 Date of Discharge Nov 24, 2021 at 15:13 Discharge Date: Nov 24, 2021 Discharge Time: 11:33 Admission Diagnosis Cardiac arrest Consults/Procedures Consulations Cardiology, TeleICU Comfort Measures/ End of Life Care: Comfort Measures Date of : Nov 24, 2021 Time of : 11:33 Discharge Diagnosis (1) Cardiopulmonary arrest with successful resuscitation Status: Acute (2) NSTEMI (non-ST elevation myocardial infarction) Status: Acute (3) Myocardial infarction involving left anterior descending (LAD) coronary artery Status: Acute (4) S/P coronary artery stent placement Status: Acute (5) Cardiogenic shock Status: Acute (6) Multiorgan failure Status: Acute (7) LUIS (acute kidney injury) Status: Acute (8) Acute respiratory failure with hypoxia Status: Acute (9) Endotracheally intubated Status: Acute (10) Hyperkalemia Status: Acute (11) Lactic acidosis Status: Acute (12) Ischemic cardiomyopathy Status: Acute (13) Poor prognosis Status: Acute (14) Goals of care, counseling/discussion Status: Acute NORMA MA MD Nov 24, 2021 21:24
[2021-11-25] MEDS ORDERED: TROUGH ORDER-PHARMACY XX NR (16:00)
== END 2021-11-24 15:13 | disposition expired | DRG 246 ==
LOC: EDUNIT# 16:27 → ER 16:36 → CATH 17:09 → ICU 19:59
PROVIDERS: ADMIT Internal Medicine Cardiovascular Disease; ATTEND Internal Medicine Cardiovascular Disease
PROC: 027034Z Dilation of Coronary Artery, One Artery with Drug-eluting Intraluminal Device, Percutaneous Approach (ICD-10-PCS; principal; 2021-11-23)
PROC: 5A1223Z Performance of Cardiac Pacing, Continuous (ICD-10-PCS; 2021-11-23)
PROC: 4A023N7 Measurement of Cardiac Sampling and Pressure, Left Heart, Percutaneous Approach (ICD-10-PCS; 2021-11-23)
PROC: B2111ZZ Fluoroscopy of Multiple Coronary Arteries using Low Osmolar Contrast (ICD-10-PCS; 2021-11-23)
PROC: B2151ZZ Fluoroscopy of Left Heart using Low Osmolar Contrast (ICD-10-PCS; 2021-11-23)
PROC: 03HY32Z Insertion of Monitoring Device into Upper Artery, Percutaneous Approach (ICD-10-PCS; 2021-11-23)
PROC: 5A1935Z Respiratory Ventilation, Less than 24 Consecutive Hours (ICD-10-PCS; 2021-11-23)
PROC: 0BH17EZ Insertion of Endotracheal Airway into Trachea, Via Natural or Artificial Opening (ICD-10-PCS; 2021-11-23)
PROC: 5A12012 Performance of Cardiac Output, Single, Manual (ICD-10-PCS; 2021-11-23)
DX: I21.19 ST elevation (STEMI) myocardial infarction involving other coronary artery of inferior wall (principal); J96.01 Acute respiratory failure with hypoxia; G93.1 Anoxic brain damage, not elsewhere classified; N17.9 Acute kidney failure, unspecified; E87.2 Acidosis; I46.9 Cardiac arrest, cause unspecified; R57.0 Cardiogenic shock; I44.30 Unspecified atrioventricular block; Z79.82 Long term (current) use of aspirin; Z79.899 Other long term (current) drug therapy; F03.90 Unspecified dementia, unspecified severity, without behavioral disturbance, psychotic disturbance, mood disturbance, and anxiety; Z51.5 Encounter for palliative care; Z66 Do not resuscitate; K21.9 Gastro-esophageal reflux disease without esophagitis; M19.90 Unspecified osteoarthritis, unspecified site; F41.9 Anxiety disorder, unspecified; F32.A Depression, unspecified; E78.5 Hyperlipidemia, unspecified; I12.9 Hypertensive chronic kidney disease with stage 1 through stage 4 chronic kidney disease, or unspecified chronic kidney disease; E11.22 Type 2 diabetes mellitus with diabetic chronic kidney disease; N18.9 Chronic kidney disease, unspecified; I45.10 Unspecified right bundle-branch block; D64.9 Anemia, unspecified; I25.5 Ischemic cardiomyopathy; E87.5 Hyperkalemia; I25.10 Atherosclerotic heart disease of native coronary artery without angina pectoris; Z20.822 Contact with and (suspected) exposure to COVID-19
CPT/HCPCS: 31500; 36415; 36680; 71045; 80048; 80053; 81000; 82805; 82947; 83605; 83735; 83880; 84100; 84145; 84484; 85007; 85025; 85027; 85379; 85610; 85730; 87040; 87077; 87081; 87088; 87186; 87636; 93005; 94003; 94799